=== PATIENT | male | born 1980 | race Caucasian/White ===

== ENCOUNTER 2024-10-04 06:04 | Emergency (ER) | payer BC, SELFPAY ==
--- NOTE | ~2024-10-04 | CT_ITS ---
EXAMINATION: CT abdomen pelvis w con DATE: 10/04/2024 07:37 INDICATION: Upper abdominal pain, nausea and fever TECHNIQUE: Computed tomography (CT) of the abdomen and pelvis was performed with 100 mL Omnipaque-350 intravenous contrast. Automated exposure control and iterative reconstruction technique were employe d. The dose-length product was 1310.32 mGy-cm. COMPARISON: None FINDINGS: Lung bases are clear. Heart size is normal. No pericardial or pleural effusion. Indeterminate approxi mately 2 cm poorly defined hypodense lesion in segment 6 of the liver. Gallbladder, spleen, pancreas, bilateral adrenal glands and left kidney are normal. 3 mm nonobstructing stone at the mid right kidn ey. There is mild colonic diverticulosis with a sigmoid predominance. There is no adjacent inflammat ory change to suggest diverticulitis. Small bowel and appendix are normal. Partially decompressed bl adder is unremarkable. No free intraperitoneal gas or fluid. No pathologically enlarged abdominal or pelvic lymphadenopathy. Chronic L1 superior endplate compression fracture with Schmorl's nodes superi mposed on the centrally depressed endplate. IMPRESSION: 1. 3 mm nonobstructing right renal stone. 2. Indeterminate 2 cm ill-defined hypodense lesion in the right hepatic lobe which could be either be nign or malignant. Recommend further evaluation with multiphase pre and postcontrast MRI. Reviewed, dictated and finalized at location A. [employer] IMPRESSION: 1. 3 mm nonobstructing right renal stone. 2. Indeterminate 2 cm ill-defined hypodense lesion in the right hepatic lobe wh ich could be either benign or malignant. Recommend further evaluation with mult iphase pre and postcontrast MRI.
[2024-10-04 06:06] VITALS: BP 167/98; PULSE 64; RESP 16; TEMP 36.5; O2SAT 100
--- NOTE | 2024-10-04 06:25 | PC.NURSE ---
COVID PCR obtained and sent to lab
--- NOTE | 2024-10-04 06:29 | ED_ITS ---
HPI - General Adult General Chief complaint: Abdominal Pain <Conner Millard MD - Last Filed: 10/04/24 07:07> Stated complaint: abdominal pain <Conner Millard MD - Last Filed: 10/04/24 07:07> Time Seen by Provider: 10/04/24 06:29 <Conner Millard MD - Last Filed: 10/04/24 07:07> Source: patient <Conner Millard MD - Last Filed: 10/04/24 07:07> Mode of arrival: ambulatory <Conner Millard MD - Last Filed: 10/04/24 07:07> Limitations: no limitations <Conner Millard MD - Last Filed: 10/04/24 07:07> History of Present Illness HPI narrative: patient is a 43-year-old white male complains of right upper quadrant pain radiating to his back on the round the right side and to the front of his left abdomen upper pain started 4 days ago around noon time he said he took some Pepto-Bismol and that helped. He was nauseated he vomited up some food. Said he had a fever of 101?. He took some Aleve. His pain went way for 2 days. Then came back 2 days ago in the morning he took some Pepto-Bismol that helped then this morning at 2:00 a.m. he started to have the pain again 7- 8 over 10 described the pain as sharp stabbing constant. Nothing seemed to make it worse he tried the Pepto-Bismol but it did not help he took 2 doses. He vomited up some foods he says he feels little bloated in his upper abdomen he has had this pain before off and on for the past 2 or 3 years maybe about 6 times a year but usually last a half an hour to 1 hour and then goes away. past medical history is significant for hyperlipidemia he has no heart lung kidney disease liver disease anemia diabetes strokes thyroid disease. He has little arthritis. Denies any problems eating or drinking voiding or stooling cough sore throat runny nose swelling lumps or bumps rash or itching bleeding or bruising problems walking talking seeing or hearing numbness dizziness just feels little tired and is hurting this morning. Denies any focal weakness or any other pain Allergies no known drug allergies past surgeries: None primary care provider Dr. Gray last seen a month ago did some routine blood work. <Conner Millard MD - Last Filed: 10/04/24 07:07> Onset (ago): day(s) (Four days) <Gordy Palm MD - Last Filed: 10/04/24 08:25> Location: abdomen <Gordy Palm MD - Last Filed: 10/04/24 08:25> Radiation: abdomen <Gordy Palm MD - Last Filed: 10/04/24 08:25> Severity: moderate <Gordy Palm MD - Last Filed: 10/04/24 08:25> Quality: aching <Gordy Palm MD - Last Filed: 10/04/24 08:25> Pain Consistency: constant <Gordy Palm MD - Last Filed: 10/04/24 08:25> Relieving factors: none <Gordy Palm MD - Last Filed: 10/04/24 08:25> Exacerbating factors: none <Gordy Palm MD - Last Filed: 10/04/24 08:25> Related Data Home medications: Home Medications Medication Instructions Recorded Confirmed atorvastatin 80 mg tablet 80 mg PO DAILY 10/04/24 10/04/24 fenofibrate nanocrystallized 145 145 mg PO DAILY 10/04/24 10/04/24 mg tablet omeprazole 40 mg capsule,delayed 40 mg PO DAILY 10/04/24 10/04/24 release <Conner Millard MD - Last Filed: 10/04/24 07:07> Allergies/adverse reactions: Allergies Allergy/AdvReac Type Severity Reaction Status Date / Time No Known Allergies Allergy Verified 10/04/24 06:11 <Conner Millard MD - Last Filed: 10/04/24 07:07> Review of Systems Review of Systems: All systems reviewed & are unremarkable except as noted in HPI and below <Conner Millard MD - Last Filed: 10/04/24 07:07> Constitutional: Constitutional: Reports as per HPI and Reports no additional constitutional complaints <Gordy Palm MD - Last Filed: 10/04/24 08:25> Eyes: Eyes: Reports as per HPI and Reports no additional eye complaints <Gordy Palm MD - Last Filed: 10/04/24 08:25> ENT: Reports system reviewed and no additional complaints, except as documented and Reports as per HPI <Gordy Palm MD - Last Filed: 10/04/24 08:25> Cardiovascular: Cardiovascular: Reports as per HPI and Reports no additional cardiovascular complaints <Gordy Palm MD - Last Filed: 10/04/24 08:25> Respiratory: Respiratory: Reports as per HPI and Reports no additional respiratory complaints <Gordy Palm MD - Last Filed: 10/04/24 08:25> Gastrointestinal: Gastrointestinal: Reports as per HPI, Reports no additional gastrointestinal complaints and Reports abdominal pain <Gordy Palm MD - Last Filed: 10/04/24 08:25> Genitourinary: Genitourinary: Reports no additional male genitourinary complaints and Reports as per HPI <Gordy Palm MD - Last Filed: 10/04/24 08:25> Musculoskeletal: Musculoskeletal: Reports no additional musculoskeletal complaints and Reports as per HPI <Gordy Palm MD - Last Filed: 1 12/04/23 08:25> Integumentary/Breasts: Skin/Breast: Reports system reviewed and no additional complaints, except as docu and Reports as per HPI <Gordy Palm MD - Last Filed: 10/04/24 08:25> Neurologic: Reports system reviewed and no additional complaints, except as documented and Reports as per HPI <Gordy Palm MD - Last Filed: 10/04/24 08:25> Psychiatric: Psychiatric: Reports no additional psychiatric complaints and Reports as per HPI <Gordy Palm MD - Last Filed: 10/04/24 08:25> Endocrine: Endocrine: Reports no additional endocrine complaints and Reports as per HPI <Gordy Palm MD - Last Filed: 10/04/24 08:25> Hematologic/Lymphatic: Hematologic/Lymphatic: Reports no additional hematologic/lymphatic complaints and Reports as per HPI <Gordy Palm MD - Last Filed: 10/04/24 08:25> Allergic/Immunologic: Allergic/Immunologic: Reports no additional allergic/immunologic complaints and Reports as per HPI <Gordy Palm MD - Last Filed: 10/04/24 08:25> [facility] Social History Social History: Social History (Updated 10/04/24 @ 08:17 by Gordy Palm MD) Social History: alcohol use <Conner Millard MD - Last Filed: 10/04/24 07:07> Comments past medical history: hyperlipidemia arthritis <Conner Millard MD - Last Filed: 10/04/24 07:07> Exam 2 Narrative: White male patient with no apparent distress.? Head normocephalic, atraumatic.? Eyes conjunctiva pink sclera nonicteric.? Extraocular movements are intact.? Ears externally normal.? Oropharynx is clear with moist mucous membranes without exudates.? Neck is supple nontender no lymphadenopathy.? Back is nontender.? No CVA tenderness. Lungs are clear.? Heart is regular rate and rhythm without murmurs gallops or rubs.? Chest wall nontender. Abdomen is soft With positive bowel sounds and right upper quadrant tenderness with a positive Stuart sign. He had no guarding or rebound tenderness. He had no hepatosplenomegaly or masses no CVA tenderness no abdominal bruits.? Extremities no cyanosis clubbing or edema.? Skin is warm and dry without rashes or lesions.? Neurological patient is alert and oriented x4.? Motor and sensory grossly intact.? Gait is normal. <Conner Millard MD - Last Filed: 10/04/24 07:07> Const: General: no acute distress <Gordy Palm MD - Last Filed: 10/04/24 08:25> Nutritional Appearance: well nourished <Gordy Palm MD - Last Filed: 10/04/24 08:25> Orientation/consciousness: patient oriented x3 <Gordy Palm MD - Last Filed: 10/04/24 08:25> Limitations: no limitations <Gordy Palm MD - Last Filed: 10/04/24 08:25> HENMT: Head: normal to inspection <Gordy Palm MD - Last Filed: 10/04/24 08:25> Ears: external ears normal <Gordy Palm MD - Last Filed: 10/04/24 08:25> Face/Nose/Sinus: Normal external nose present <Gordy Palm MD - Last Filed: 10/04/24 08:25> Face and sinus: normal facial exam <Gordy Palm MD - Last Filed: 10/04/24 08:25> Mouth: Yes Normal oral and palatal mucosa present <Gordy Palm MD - Last Filed: 10/04/24 08:25> Throat: posterior oropharynx normal <Gordy Palm MD - Last Filed: 10/04/24 08:25> Eyes: Conjunctivae: conjunctivae normal <Gordy Palm MD - Last Filed: 10/04/24 08:25> Pupils: Equal, round and reactive pupils present <Gordy Palm MD - Last Filed: 10/04/24 08:25> EOM: EOMs intact bilaterally <Gordy Palm MD - Last Filed: 10/04/24 08:25> Direct Ophthalmoscopy: no photophobia <Gordy Palm MD - Last Filed: 10/04/24 08:25> Neck: Neck: normal visual inspection, no lymphadenopathy and no meningeal signs <Gordy Palm MD - Last Filed: 10/04/24 08:25> Chest: Chest palpation & inspection: normal inspection of the chest <Gordy Palm MD - Last Filed: 10/04/24 08:25> Resp: Effort & Inspection: normal respiratory effort <Gordy Palm MD - Last Filed: 10/04/24 08:25> Auscultation: clear to auscultation bilaterally <Gordy Palm MD - Last Filed: 10/04/24 08:25> Cardio: Rate: regular rate <Gordy Palm MD - Last Filed: 10/04/24 08:25> Rhythm: regular rhythm <Gordy Palm MD - Last Filed: 10/04/24 08:25> GI: Other: right upper quadrant tenderness. Positive Stuart sign. No rigidity/rebound. <Gordy Palm MD - Last Filed: 10/04/24 08:25> : General: Yes no CVA tenderness <oGrdy Palm MD - Last Filed: 10/04/24 08:25> Back/Spine/Pelvis: Back: no CVA tenderness <Gordy Palm MD - Last Filed: 10/04/24 08:25> Skin: General skin exam: normal color <Gordy Palm MD - Last Filed: 10/04/24 08:25> Rashes: no rashes <Gordy Palm MD - Last Filed: 10/04/24 08:25> Neuro: General: patient oriented x3, moves all extremities, no meningeal signs , no focal motor deficits and CN's II-XI intact bilaterally <Gordy Palm MD - Last Filed: 10/04/24 08:25> Cranial nerves: Yes Nystagmus not present <Gordy Palm MD - Last Filed: 10/04/24 08:25> Speech: normal speech <Gordy Palm MD - Last Filed: 10/04/24 08:25> Extrem: General: normal to inspection and no clubbing, cyanosis or edema <Gordy Palm MD - Last Filed: 10/04/24 08:25> Psych: Mental Status: mental status grossly normal <Gordy Palm MD - Last Filed: 10/04/24 08:25> Affect: normal affect <Gordy Palm MD - Last Filed: 10/04/24 08:25> Course Course Emergency Course: Right upper quadrant tenderness-- blood work revealed an elevated white cell count of 11.9. Chemistries revealed elevated LFTs with AST of 153 and ALT of 109 suggestive of alcoholic hepatitis. Urine was negative for blood. CT of the abdomen revealed 2 cm hypodensity in the liver along with diverticulosis and superior endplate compression fracture of L1 with schmorl's node. no clear reason for the right upper quadrant pain / tenderness. The CT did not show any abnormality of the liver the gallbladder the spleen. Will have the patient continue omeprazole. Will give him some pain medication. Advised to follow up with primary care physician. <Gordy Palm MD - Last Filed: 10/04/24 08:25> Vital Signs Vital signs: Vital Signs Temperature 36.5 C 10/04/24 06:06 Pulse Rate 64 10/04/24 06:06 Respiratory Rate 16 10/04/24 06:06 Blood Pressure 167/98 H 10/04/24 06:06 Pulse Oximetry 100 10/04/24 06:06 Oxygen Delivery Room Air 10/04/24 06:06 Temperature 36.5 C 10/04/24 06:06 Pulse Rate 64 10/04/24 06:06 Respiratory Rate 16 10/04/24 06:06 Blood Pressure 167/98 H 10/04/24 06:06 Pulse Oximetry 100 10/04/24 06:06 Oxygen Delivery Room Air 10/04/24 06:06 <Conner Millard MD - Last Filed: 10/04/24 07:07> Vital Signs Temperature 36.5 C 10/04/24 06:06 Pulse Rate 64 10/04/24 06:06 Respiratory Rate 16 10/04/24 06:06 Blood Pressure 167/98 H 10/04/24 06:06 Pulse Oximetry 100 10/04/24 06:06 Oxygen Delivery Room Air 10/04/24 06:06 Temperature 36.5 C 10/04/24 06:06 Pulse Rate 64 10/04/24 06:06 Respiratory Rate 16 10/04/24 06:06 Blood Pressure 167/98 H 10/04/24 06:06 Pulse Oximetry 100 10/04/24 06:06 Oxygen Delivery Room Air 10/04/24 06:06 <Gordy Palm MD - Last Filed: 10/04/24 08:25> Medical Decision Making MDM Narrative Medical decision making narrative: ?Patient placed in room: 3 ? History and physical was performed. Independent Historian: patient External Source Review: Differential Dx includes but not limited to: cholecystitis gastritis peptic ulcer disease bowel obstruction Medications were Reviewed: home meds reviewed Medications given: Toradol 30 mg IV, Zofran 4 mg IV, Protonix 40 mg IV Independently Interpreted by me: Shared decision Making: Social Situation Impacting Patients Care: Discussed with Dr. Gordy Palm at change of shift who accepted care of patient. DISCHARGE DIAGNOSIS: Abdominal pain DISPOSITION : CONDITION AT DISCHARGE: <Conner Millard MD - Last Filed: 10/04/24 07:07> Differential Diagnosis Differential Diagnosis: Cholecystitis, peptic ulcer disease, kidney stones <Gordy Palm MD - Last Filed: 10/04/24 08:25> Medical Records Medical records reviewed: Yes I reviewed the external patient's medical records. <Gordy Palm MD - Last Filed: 10/04/24 08:25> Vital Signs Vital Signs: Vital Signs Temperature 36.5 C 10/04/24 06:06 Pulse Rate 64 10/04/24 06:06 Respiratory Rate 16 10/04/24 06:06 Blood Pressure 167/98 H 10/04/24 06:06 Pulse Oximetry 100 10/04/24 06:06 Oxygen Delivery Room Air 10/04/24 06:06 Temperature 36.5 C 10/04/24 06:06 Pulse Rate 64 10/04/24 06:06 Respiratory Rate 16 10/04/24 06:06 Blood Pressure 167/98 H 10/04/24 06:06 Pulse Oximetry 100 10/04/24 06:06 Oxygen Delivery Room Air 10/04/24 06:06 <Conner Millard MD - Last Filed: 10/04/24 07:07> Vital Signs Temperature 36.5 C 10/04/24 06:06 Pulse Rate 64 10/04/24 06:06 Respiratory Rate 16 10/04/24 06:06 Blood Pressure 167/98 H 10/04/24 06:06 Pulse Oximetry 100 10/04/24 06:06 Oxygen Delivery Room Air 10/04/24 06:06 Temperature 36.5 C 10/04/24 06:06 Pulse Rate 64 10/04/24 06:06 Respiratory Rate 16 10/04/24 06:06 Blood Pressure 167/98 H 10/04/24 06:06 Pulse Oximetry 100 10/04/24 06:06 Oxygen Delivery Room Air 10/04/24 06:06 <Gordy Palm MD - Last Filed: 10/04/24 08:25> Lab Data Result diagrams: 10/04/24 06:30 10/04/24 06:30 <Conner Millard MD - Last Filed: 10/04/24 07:07> Labs: Lab Results 11/23/24 11/23/24 Range/Units 06:30 07:17 WBC 11.9 H (4.8-10.8) K/mm3 RBC 4.64 L (4.70-6.10) M/mm3 Hgb 14.2 (14.0-18.0) g/dL Hct 41.5 (40.0-54.0) % MCV 89.4 (78.0-102.0) fL MCH 30.6 (27.0-31.0) pg MCHC 34.2 (32-36) g/dL RDW 12.9 (11.6-14.4) % Plt Count 235 (150-420) K/mm3 MPV 11.8 H (8.7-11.0) fl Sodium 140 (136-145) mmol/L Potassium 3.8 (3.5-5.1) mmol/L Chloride 101 (98-108) mmol/L Carbon Dioxide 27 (21-32) mmol/L Anion Gap 12 (4-12) mmol/L BUN 12 (7-18) mg/dL Creatinine 1.08 (0.70-1.30) mg/dL Estim Creat Clear Calc 101 ml/min Estimated GFR > 60 (59 - ) Glucose 172 H (70-99) mg/dL Calculated Osmolality 293 (285-295) mOsm/kg Calcium 9.6 (8.5-10.1) mg/dL Total Bilirubin 0.9 (0.00-1.00) mg/dL AST 153 H (15-37) U/L ALT 109 H (16-63) U/L Alkaline Phosphatase 107 (46-116) U/L Total Protein 7.4 (6.4-8.2) g/dL Albumin 3.9 (3.4-5.0) g/dL Lipase 44 (16-77) U/L Urine Color Christiane A (Yellow) Urine Appearance Clear (Clear) Urine pH 5.0 (5.0-8.0) Ur Specific [place] >= 1.030 H (1.010-1.020) Urine Protein Trace H (Negative) Urine Glucose (UA) Negative (Negative) Urine Ketones Trace H (Negative) Ur Blood (Man) Negative (Negative) Urine Nitrate Negative (Negative) Urine Bilirubin 1+ H (Negative) Urine Urobilinogen 1.0 (0.2-1.0) mg/dL Leukocyte Esterase Rfl Negative (Negative) PEDRO/UL Urine RBC None seen (0-2) /hpf Urine WBC None seen (0-3) /hpf Calcium Oxalate Crystal Present H (None) /hpf Urine Bacteria Trace (None) /hpf Urine Mucus Heavy H /lpf <Conner Millard MD - Last Filed: 10/04/24 07:07> Lab Results 10/04/24 10/04/24 Range/Units 06:30 07:17 WBC 11.9 H (4.8-10.8) K/mm3 RBC 4.64 L (4.70-6.10) M/mm3 Hgb 14.2 (14.0-18.0) g/dL Hct 41.5 (40.0-54.0) % MCV 89.4 (78.0-102.0) fL MCH 30.6 (27.0-31.0) pg MCHC 34.2 (32-36) g/dL RDW 12.9 (11.6-14.4) % Plt Count 235 (150-420) K/mm3 MPV 11.8 H (8.7-11.0) fl Sodium 140 (136-145) mmol/L Potassium 3.8 (3.5-5.1) mmol/L Chloride 101 (98-108) mmol/L Carbon Dioxide 27 (21-32) mmol/L Anion Gap 12 (4-12) mmol/L BUN 12 (7-18) mg/dL Creatinine 1.08 (0.70-1.30) mg/dL Estim Creat Clear Calc 101 ml/min Estimated GFR > 60 (59 - ) Glucose 172 H (70-99) mg/dL Calculated Osmolality 293 (285-295) mOsm/kg Calcium 9.6 (8.5-10.1) mg/dL Total Bilirubin 0.9 (0.00-1.00) mg/dL AST 153 H (15-37) U/L ALT 109 H (16-63) U/L Alkaline Phosphatase 107 (46-116) U/L Total Protein 7.4 (6.4-8.2) g/dL Albumin 3.9 (3.4-5.0) g/dL Lipase 44 (16-77) U/L Urine Color Christiane A (Yellow) Urine Appearance Clear (Clear) Urine pH 5.0 (5.0-8.0) Ur Specific [place] >= 1.030 H (1.010-1.020) Urine Protein Trace H (Negative) Urine Glucose (UA) Negative (Negative) Urine Ketones Trace H (Negative) Ur Blood (Man) Negative (Negative) Urine Nitrate Negative (Negative) Urine Bilirubin 1+ H (Negative) Urine Urobilinogen 1.0 (0.2-1.0) mg/dL Leukocyte Esterase Rfl Negative (Negative) PEDRO/UL Urine RBC None seen (0-2) /hpf Urine WBC None seen (0-3) /hpf Calcium Oxalate Crystal Present H (None) /hpf Urine Bacteria Trace (None) /hpf Urine Mucus Heavy H /lpf <Gordy Palm MD - Last Filed: 10/04/24 08:25> Discharge Plan Discharge Clinical Impression: Lesion of liver Abdominal pain Qualifiers: Abdominal location: right upper quadrant Qualified Code(s): R10.11 - Right upper quadrant pain Alcoholic hepatitis Qualifiers: Ascites presence: without ascites Qualified Code(s): K70.10 - Alcoholic hepatitis without ascites <Conner Millard MD - Last Filed: 10/04/24 07:07> Patient Disposition: Home, Self-Care <Conner Millard MD - Last Filed: 10/04/24 07:07> Condition: Stable <Conner Millard MD - Last Filed: 10/04/24 07:07> Instructions: Antibiotic Form, Acute Abdominal Pain (ED), Alcoholic Hepatitis (ED) <Conner Millard MD - Last Filed: 10/04/24 07:07> Additional Instructions: follow-up with primar <Conner Millard MD - Last Filed: 10/04/24 07:07> Patient Language: Korean <Conner Millard MD - Last Filed: 10/04/24 07:07> Prescriptions: New hydrocodone-acetaminophen 5-325 mg tablet 1 tablet PO Q8H PRN (Reason: pain) Qty: 10 0RF No Action atorvastatin 80 mg tablet 80 mg PO DAILY omeprazole 40 mg capsule,delayed release(DR/EC) 40 mg PO DAILY fenofibrate nanocrystallized 145 mg tablet 145 mg PO DAILY <Conner Millard MD - Last Filed: 10/04/24 07:07> Follow-up/Referrals: UNKNOWN,DOCTOR [Primary Care Provider] - <Conner Millard MD - Last Filed: 10/04/24 07:07> Time of Disposition: 08:25 <Conner Millard MD - Last Filed: 10/04/24 07:07> 08:25 <Gordy Palm MD - Last Filed: 10/04/24 08:25>
[2024-10-04 06:58] LABS: Hematocrit 41.5 % (40.0-54.0); Hemoglobin 14.2 g/dL (14.0-18.0); Mean Corpuscular HGB Conc 34.2 g/dL (32-36); Mean Corpuscular Hemoglobin 30.6 pg (27.0-31.0); Mean Corpuscular Volume 89.4 fL (78.0-102.0); Mean Platelet Volume 11.8 fl (8.7-11.0); Platelet Count Result 235 K/mm3 (150-420); Red Blood Count 4.64 M/mm3 (4.70-6.10); Red Cell Distribution Width 12.9 % (11.6-14.4); White Blood Count 11.9 K/mm3 (4.8-10.8)
[2024-10-04] MEDS: ONDANSETRON INJ 4 MG/2 ML VIAL IV PUSH ×2 (06:59→08:31)
[2024-10-04] MEDS: KETOROLAC 30 MG/ML VIAL (*BKC) IM (06:59)
[2024-10-04] MEDS: PANTOPRAZOLE SODIUM IV 40 MG VIAL IV PUSH (06:59)
[2024-10-04 07:08] LABS: Alanine Aminotransferase 109 U/L (16-63); Albumin Level 3.9 g/dL (3.4-5.0); Alkaline Phosphatase 107 U/L (46-116); Anion Gap 12 mmol/L (4-12); Aspartate Amino Transferase 153 U/L (15-37); Bilirubin,Total 0.9 mg/dL (0.00-1.00); Blood Urea Nitrogen 12 mg/dL (7-18); Calcium 9.6 mg/dL (8.5-10.1); Carbon Dioxide 27 mmol/L (21-32); Chloride 101 mmol/L (98-108); Estimated CRCL calculation 101 ml/min; Estimated Glomerular Filt Rate > 60; Glucose 172 mg/dL (70-99); Lipase 44 U/L (16-77); Osmolality Calculated 293 mOsm/kg (285-295); Potassium 3.8 mmol/L (3.5-5.1); Sodium 140 mmol/L (136-145); Total Protein 7.4 g/dL (6.4-8.2)
[2024-10-04 07:24] LABS: Appearance Urine Clear (Clear); Bilirubin Urine 1+ (Negative); Blood Urine Negative (Negative); Glucose Urine UA Negative (Negative); Ketones Urine Trace (Negative); Leukocyte Esterase Ur Negative LEU/UL (Negative); Nitrate Urine Negative (Negative); Protein Urine Trace (Negative); Specific Grav Ur >= 1.030 (1.010-1.020)
[2024-10-04 07:30] LABS: Add Urine Microscopic? YES; Bacteria Urine Trace /hpf; Calcium Oxalate Crystals Urine Present /hpf; Color Urine Amber (Yellow); Mucus Urine Heavy /lpf; RBC Urine None seen /hpf (0-2); WBC Urine None seen /hpf (0-3)
[2024-10-04] MEDS: LACTATED RINGERS 500 ML 999 ML IV CONT (08:31)
[2024-10-04] MEDS: HYDROmorphone HCL INJ (*CRX) 2 MG/ML VIAL 0.5 MG IV PUSH (08:32)
[2024-10-04 08:56] VITALS: BP 160/94; PULSE 59; RESP 18; TEMP 36.6; O2SAT 98
== END 2024-10-04 09:04 | disposition home or self-care (01) ==
PROVIDERS: Emergency Medicine; Emergency Provider Internal Medicine Critical Care Medicine
DX: K76.9 Liver disease, unspecified (principal); K70.10 Alcoholic hepatitis without ascites; R10.11 Right upper quadrant pain; Z79.899 Other long term (current) drug therapy
CPT/HCPCS: 36415; 74177; 80053; 81001; 83690; 85027; 96372; 96374; 96375; 99284; J1171; J1885; J2405; J2470; J7120; Q9967

== ENCOUNTER 2024-10-05 12:37 | Inpatient (IN) | payer BC, SELFPAY ==
--- NOTE | ~2024-10-05 | US_ITS ---
US abdomen limited DATE: 10/05/2024 16:37 INDICATION: Right upper quadrant abdominal pain. Acute cholecystitis. TECHNIQUE: Real-time and color flow imaging of the right upper quadrant COMPARISON: 10/05/2024 CT abdomen pelvis 10/04/2024 CT abdomen pelvis FINDINGS: There is a focal approximately 2.4 x 1.9 x 1.7 cm area of hyper echogenicity of the right h epatic lobe, which may be due to focal fatty infiltration or hemangioma. No other hepatic space-occup nikkie mass lesion is evident. Normal hepatopedal portal venous flow direction. No pancreatic mass lesion is noted. The gallbladder is distended. There is gallbladder wall thickening, measuring up to 4 mm. No apparent gallstones is noted. IMPRESSION: Gallbladder distention and wall thickening; acute cholecystitis is suspected. No definite gallstones are noted. Consider occult gallstone or acalculous cholecystitis. Focal hyperechoic area right hepatic lobe corresponding to CT finding, possibly focal fatty infiltrat ion or hemangioma Reviewed, dictated and finalized at [facility]. Reviewed, dictated and finalized at location A. LIANCE TECHNICIAN IMPRESSION: Gallbladder distention and wall thickening; acute cholecystitis is suspected. No definite gallstones are noted. Consider occult gallstone or acalc ulous cholecystitis. Focal hyperechoic area right hepatic lobe corresponding to CT finding, possibly focal fatty infiltration or hemangioma
--- NOTE | ~2024-10-05 | MR_ITS ---
EXAMINATION: MR MRCP wo/w con/w 3D wo ind DATE: 10/06/2024 11:41 INDICATION: Acute cholecystitis with significant transaminitis TECHNIQUE: Magnetic resonance imaging (MRI) of the abdomen was performed without and with 20 mL Multi kallie intravenous contrast. Sequences included coronal T2-weighted SS-FSE, coronal T2-weighted FS SS- FSE, coronal T2-weighted FS FIESTA, axial T2-weighted FS FIESTA, axial T2-weighted FIESTA, sagittal T 2-weighted SS-FSE, axial T1-weighted dual-echo FSPGR, axial T2-weighted SS-FSE, axial T1-weighted LAV A, axial T2-weighted STIR FSE. Thick-slab T2-weighted FRFSE-XL images were obtained for magnetic reso nance cholangiopancreatography (MRCP). Rotating maximum intensity projection 3-D reconstructions of t he volumetric data were created by the technologist. Postcontrast sequences included a time course of axial T1-weighted LAVA. COMPARISON: CT dated 10/05/2024 FINDINGS: ABDOMEN MRI: Heart size is normal. No pericardial or pleural effusion. There is mild intrahepatic biliary ductal d ilation. 2.1 x 1.6 cm T2 hyperintense lesion in the right hepatic lobe with lobular margins and with peripheral discontiguous puddling of contrast which progressively fills in on delayed imaging consist ent with a hemangioma. There is an adjacent 7 x 3 mm T2 hyperintense lesion which enhances only on th e most delayed image also most consistent with a hemangioma. There is pericholecystic inflammatory st randing consistent with acute cholecystitis spleen, pancreas, bilateral adrenal glands and kidneys ar e normal. Visualized portion of the bowels including the appendix are normal. No pathologically enlar ged abdominal lymphadenopathy. Mild thoracolumbar spondylosis. Large Schmorl's node along the superio r endplate of L1. Fat saturating hemangioma at T8. ABDOMEN MRCP: The MRCP images are essentially nondiagnostic due to motion. Evaluation on the T2-weighted coronal im ages demonstrates borderline dilation of the common bile duct which measures up to 6 mm. There is a 1 0 x 6 mm stone in the distal common bile duct. There are few additional small filling defects along t he cystic duct suggesting additional choledocholithiasis. No evident cholelithiasis within the gallbl adder. IMPRESSION: 1. Choledocholithiasis including a 10 x 6 mm stone in the distal aspect of the borderline dilated com mon bile duct and with mild intrahepatic biliary ductal dilation. 2. There are additional low signal intensity gallstones in the cystic duct and inflammatory stranding surrounding the gallbladder consistent with acute cholecystitis. 3. 2.1 cm hemangioma in the right hepatic lobe which corresponds to the region of concern on prior CT . Reviewed, dictated and finalized at location A. FELLER IMPRESSION: 1. Choledocholithiasis including a 10 x 6 mm stone in the distal aspect of the borderline dilated common bile duct and with mild intrahepatic biliary ductal d ilation. 2. There are additional low signal intensity gallstones in the cystic duct and inflammatory stranding surrounding the gallbladder consistent with acute cholec ystitis. 3. 2.1 cm hemangioma in the right hepatic lobe which corresponds to the region of concern on prior CT.
--- NOTE | ~2024-10-05 | XR_ITS ---
EXAMINATION: XR ERCP DATE: 10/07/2024 12:00 LENS GENERATOR INDICATION: GALL STONES . TECHNIQUE: 1 fluoroscopic image of the right upper quadrant were obtained during ERCP. I was not pres ent during the procedure. Fluoroscopy exposure time was 120.3 seconds. Air Kerma 63.4 mGy. DAP 1.96 m Gym2. COMPARISON: None FINDINGS/IMPRESSION: Fluoroscopic documentation of ERCP. Please refer to the operative note for complete procedural detail s . Reviewed, dictated and finalized at location K. GENERATOR
--- NOTE | ~2024-10-05 | CT_ITS ---
EXAMINATION: CT abdomen pelvis w con DATE: 10/05/2024 14:53 INDICATION: Right upper quadrant abdominal pain, vomiting. Abnormal liver function tests. TECHNIQUE: Computed tomography (CT) of the abdomen and pelvis was performed with 100 CC Omnipaque 350 intravenous contrast. Automated exposure control and iterative reconstruction technique were employe d. Exam dose: 1225.36 mGy-cm total exam DLP. COMPARISON: 10/04/2024 CT abdomen pelvis FINDINGS: Minimal bilateral lower lobe dependent atelectasis. Normal heart size. There is interval prominent pericholecystic fat stranding since yesterday. The gallbladder is distend ed. Acute cholecystitis is suspected. No bile duct or pancreatic duct dilatation. Subtle area of diminished attenuation in the posterior inferior right hepatic lobe, of uncertain if a ny clinical significance, most likely benign, possibly some focal fatty infiltration. On 10/04/2024 C T abdomen pelvis examination report Dr. Galloway recommended MRI evaluation to differentiate benign f rom malignant process. The liver, spleen, pancreas, and adrenal glands and kidneys are otherwise unremarkable with the excep tion of a nonobstructing approximately 3 mm right renal calculus. Normal caliber of the abdominal aorta. No intraperitoneal or retroperitoneal or pelvic mass lesion or adenopathy or ascites is noted. Normal appendix. There are multiple diverticula of the sigmoid and to lesser extent descending colon; no CT evidence o f diverticulitis. No bowel obstruction, bowel wall thickening, pneumatosis or intraperitoneal free ai r. Chronic mild anterior wedge compression fracture deformity of L1. Severe degenerative disc disease with prominent anterior posterior spurring at L5-S1. No suspicious osteolytic or osteoblastic lesions are noted. IMPRESSION: Acute cholecystitis, with prominent pericholecystic fat stranding/inflammation since yes terday Diverticulosis of the left colon; no evidence of diverticulitis Normal appendix Subtle focal diminished attenuation in the lower right hepatic lobe, possibly focal fatty infiltratio n. MRI has been recommended differentiate benign from malignant process. Reviewed, dictated and finalized at [facility]. Reviewed, dictated and finalized at location A. RITY SALES CONSULTANT IMPRESSION: Acute cholecystitis, with prominent pericholecystic fat stranding/ inflammation since yesterday Diverticulosis of the left colon; no evidence of diverticulitis Normal appendix Subtle focal diminished attenuation in the lower right hepatic lobe, possibly f ocal fatty infiltration. MRI has been recommended differentiate benign from mal ignant process.
[2024-10-05 12:59] VITALS: BP 168/98; PULSE 73; RESP 17; O2SAT 100
[2024-10-05 13:34] LABS: Basophils Absolute Auto 0.1 K/mm3 (0.0-0.1); Basophils Percent Auto 0.4 % (0.2-1.2); Eosinophils Percent Auto 0.1 % (0-4.4); Hematocrit 41.2 % (42.0-52.0); Hemoglobin 13.9 g/dL (14.0-18.0); Immature Granulocyte Absolute 0.16 K/mm3 (0.00-0.031); Immature Granulocyte Percent A 1.1 % (0-0.5); Lymphocytes Absolute Auto 0.47 K/mm3 (0.9-3.2); Lymphocytes Percent Auto 3.2 % (18.3-44.2); Mean Corpuscular HGB Conc 33.7 g/dl (32-36); Mean Corpuscular Hemoglobin 30.4 pg (26-34); Mean Corpuscular Volume 90.2 fl (80-100); Mean Platelet Volume 11.7 fl (7.4-10.4); Monocytes Absolute Auto 0.7 K/mm3 (0.1-0.6); Neutrophils Absolute Auto 13.1 K/mm3 (1.3-6.7); Neutrophils Percent Auto 90.2 % (45.5-73.1); Platelet Count Result 186 k/mm3 (150-375); Red Blood Count 4.57 M/mm3 (4.6-6.20); Red Cell Distribution Width 12.9 % (11.5-14.5); White Blood Count 14.5 K/mm3 (4.5-10.0)
[2024-10-05 13:46] LABS: Lactic Acid Reflex 1.9 mmol/L (0.7-2.0)
[2024-10-05 13:48] LABS: Alanine Aminotransferase 502 U/L (6-50); Albumin Level 4.5 g/dL (3.5-5.1); Alkaline Phosphatase 154 U/L (38-126); Anion Gap 13 mmol/L (4-12); Aspartate Amino Transferase 453 U/L (17-59); Bilirubin,Total 8.4 mg/dL (0.2-1.3); Blood Urea Nitrogen 10 mg/dL (9-20); Calcium 9.3 mg/dL (8.4-10.2); Carbon Dioxide 22 mmol/L (22-30); Chloride 99 mmol/L (98-107); Estimated CRCL calculation 134 ml/min; Estimated Glomerular Filt Rate > 60; Glucose 152 mg/dL (65-110); Lipase 44 U/L (23-300); Potassium 3.6 mmol/L (3.4-5.0); Sodium 134 mmol/L (137-145)
[2024-10-05 13:49] LABS: Add Urine Microscopic? YES; Appearance Urine Clear (Clear); Bacteria Urine None Seen /hpf; Bilirubin Urine 3+ (Negative); Blood Urine Negative (Negative); Color Urine Dark Yellow (Yellow); Glucose Urine UA Negative (Negative); Ketones Urine Trace mg/dL (Negative); Leukocyte Esterase Ur 1+ LEU/UL (Negative); Need Manual Microscopic Reviewed; Nitrate Urine Positive (Negative); Non Pathogenic Casts 0-2; Protein Urine 2+ mg/dL (Negative); RBC Urine 0-2 /hpf (0-2); Specific Grav Ur 1.032 (1.001-1.035); Squamous Epithelial Cell Urine None Seen /hpf (Few); WBC Urine 0-5 /hpf (0-3); pH Urine 7.5 (5.0-9.0)
--- NOTE | 2024-10-05 14:04 | ED_ITS ---
HPI - Abdominal Pain General Chief Complaint: Abdominal Pain Stated Complaint: abd pain Time Seen by Provider: 10/05/24 12:46 History of Present Illness HPI narrative: 43-year-old male with a history of hyperlipidemia presenting with abdominal pain. States that he has had upper right quadrant pain off and on for the last week associated with decreased appetite and vomiting. He was seen at another hospital yesterday and was able to go home. States that he does drink daily but he has not had a drink for the last 2 days. Denies prior episodes of withdrawal or current withdrawal symptoms. States that the right upper quadrant pain again became bad today despite taking Vicodin. Related Data Home Medications Medication Instructions Recorded Confirmed atorvastatin 80 mg tablet 80 mg PO DAILY 10/04/24 10/04/24 fenofibrate nanocrystallized 145 145 mg PO DAILY 10/04/24 10/04/24 mg tablet omeprazole 40 mg capsule,delayed 40 mg PO DAILY 10/04/24 10/04/24 release Allergies Allergy/AdvReac Type Severity Reaction Status Date / Time No Known Allergies Allergy Verified 10/04/24 06:11 Review of Systems Review of Systems: All systems reviewed & are unremarkable except as noted in HPI and below PMFSH Past Medical History Medical History (Updated 10/05/24 @ 19:27 by Joi Prado MD) Dyslipidemia Surgical History Surgical History (Updated 10/05/24 @ 16:23 by Mayte Dutta PA-C) No history of previous surgery Social History Social History Social History: alcohol use Exam Narrative: GENERAL: Slightly jaundice, in no acute distress, pleasant cooperative HEAD: Normocephalic, atraumatic. EYES: PERRLA and EOMI. Conjunctiva are mildly jaundiced ENT: Mucous membranes moist. NECK: Supple. CHEST: Clear to auscultation. No respiratory distress. HEART: Regular rate and rhythm ABDOMEN: Soft, + right upper quadrant tenderness without guarding or rebound EXTREMITIES: Normal range of motion. No edema. SKIN: Warm, dry, no rash. NEURO: No focal deficits. Alert and oriented x3. PSYCH: Normal mood and affect. Course Vital Signs Vital signs: Vital Signs Pulse Rate 73 10/05/24 12:59 Respiratory Rate 17 10/05/24 12:59 Blood Pressure 168/98 H 10/05/24 12:59 Pulse Oximetry 100 10/05/24 12:59 Oxygen Delivery Room Air 10/05/24 12:59 Temperature 98.0 F 10/05/24 18:55 Pulse Rate 111 H 10/05/24 18:55 Respiratory Rate 20 10/05/24 18:55 Blood Pressure 175/72 H 10/05/24 18:55 Pulse Oximetry 100 10/05/24 18:55 Oxygen Delivery Room Air 10/05/24 12:59 MDM - Abdominal Pain MDM Narrative Medical decision making narrative: 43-year-old male presenting with right upper quadrant pain. Vitals are stable. Exam remarkable for the above. Blood work with leukocytosis of 14.5. CT abdomen pelvis shows acute cholecystitis with pretty prominent pericholecystic stranding. He does have tra nsaminitis with a T bili of 8.4, AST ALT in 4 to 500s, alk-phos 154. I spoke with general surgery who agrees with IV antibiotics and fluids. He is happy to see the patient. Advised admission to Medicine with GI consult. I spoke with Gastroenterology your recommends getting a right upper quadrant ultrasound as well as an MRCP. States that he does not need to be formally consult unless there is evidence of choledocholithiasis. Discussed the findings with the patient. He is agreeable with admission. Spoke with the hospitalist was accepted him for admission. Differential Diagnosis Differential diagnosis: Likely abdominal pain, diverticulitis, gastroenteritis, pancreatitis and other (Acute cholecystitis, transaminitis) Medical Records Attestation: I reviewed the patient's medical records. Lab Data Attestation: I reviewed the patient's lab results. 10/05/24 13:20 10/05/24 13:20 Labs: Lab Results 10/05/24 Range/Units 13:20 WBC 14.5 H (4.5-10.0) K/mm3 RBC 4.57 L (4.6-6.20) M/mm3 Hgb 13.9 L (14.0-18.0) g/dL Hct 41.2 L (42.0-52.0) % MCV 90.2 (80-100) fl MCH 30.4 (26-34) pg MCHC 33.7 (32-36) g/dl RDW 12.9 (11.5-14.5) % Plt Count 186 (150-375) k/mm3 MPV 11.7 H (7.4-10.4) fl Immature Gran % (Auto) 1.1 H (0-0.5) % Neut % (Auto) 90.2 H (45.5-73.1) % Lymph % (Auto) 3.2 L (18.3-44.2) % [place] % (Auto) 5.0 (2.6-8.5) % Eos % (Auto) 0.1 (0-4.4) % Baso % (Auto) 0.4 (0.2-1.2) % Lymph # (Auto) 0.47 L (0.9-3.2) K/mm3 [place] # (Auto) 0.7 H (0.1-0.6) K/mm3 Eos # (Auto) 0.0 (0-0.3) K/mm3 Baso # (Auto) 0.1 (0.0-0.1) K/mm3 Abs Immat Gran (auto) 0.16 H (0.00-0.031) K/mm3 Absolute Neuts (auto) 13.1 H (1.3-6.7) K/mm3 Absolute Nucleated RBC 0.000 (0.0-0.012) K/mm3 Nucleated RBC % 0.0 (0.0-0.2) % Sodium 134 L (137-145) mmol/L Potassium 3.6 (3.4-5.0) mmol/L Chloride 99 (98-107) mmol/L Carbon Dioxide 22 (22-30) mmol/L Anion Gap 13 H (4-12) mmol/L BUN 10 (9-20) mg/dL Creatinine 0.80 (0.7-1.3) mg/dL Estim Creat Clear Calc 134 ml/min Estimated GFR > 60 (59 - ) Glucose 152 H (65-110) mg/dL Lactic Acid 1.9 (0.7-2.0) mmol/L Calcium 9.3 (8.4-10.2) mg/dL Total Bilirubin 8.4 H (0.2-1.3) mg/dL AST 453 H (17-59) U/L ALT 502 H (6-50) U/L Alkaline Phosphatase 154 H (38-126) U/L Total Protein 8.0 (6.3-8.2) g/dL Albumin 4.5 (3.5-5.1) g/dL Lipase 44 (23-300) U/L Urine Color Dark yellow (Yellow) Urine Appearance Clear (Clear) Urine pH 7.5 (5.0-9.0) Ur Specific [place] 1.032 (1.001-1.035) Urine Protein 2+ H (Negative) mg/dL Urine Glucose (UA) Negative (Negative) mg/dL Urine Ketones Trace H (Negative) mg/dL Ur Blood (Man) Negative (Negative) Urine Nitrate Positive H (Negative) Urine Bilirubin 3+ H (Negative) Urine Urobilinogen 1.0 (<2.0) mg/dL Add Ur Microanalysis Reviewed Leukocyte Esterase Rfl 1+ H (Negative) PEDRO/UL Urine RBC 0-2 (0-2) /hpf Urine WBC 0-5 (0-3) /hpf Ur Squamous Epith Cells None seen (Few) /hpf Urine Bacteria None seen /hpf Urine Casts 0-2 Imaging Data Radiologist's impression: ITS Impressions Abdomen/Pelvis CT 10/05/24 15:11 IMPRESSION: Acute cholecystitis, with prominent pericholecystic fat st randing/inflammation since yesterday Diverticulosis of the left colon; no evidence of diverticulitis Normal appendix Subtle focal diminished attenuation in the lower right hepatic lobe, possibly focal fatty infiltration. MRI has been recommended differentiate benign from malignant process. Abdomen Ultrasound 10/05/24 16:51 IMPRESSION: Gallbladder distention and wall thickening; acute cholecystitis is suspected. No definite gallstones are noted. Consider occult gallstone or acalculous cholecystitis. Focal hyperechoic area right hepatic lobe corresponding to CT finding, possibly focal fatty infiltration or hemangioma Critical Care Time Critical Care Time Critical Care Time: No Discharge Plan Discharge Clinical Impression: Acute cholecystitis, Transaminitis Patient Disposition: Still a Patient Condition: Stable
[2024-10-05 14:14] VITALS: BP 158/100; PULSE 70; RESP 16; O2SAT 100
[2024-10-05] MEDS: ONDANSETRON HCL ODT 4 MG TABLET PO (14:15)
[2024-10-05] MEDS: HYDROmorphone HCL INJ (*CRX) 1 MG/ML SYR IV PUSH ×2 (14:16→16:15)
[2024-10-05] MEDS: SODIUM CHLORIDE 0.9% IV 1,000 ML 999 ML IV CONT (14:16)
[2024-10-05 15:25] VITALS: BP 156/82; PULSE 66; RESP 16; TEMP 36.6; O2SAT 98
[2024-10-05] MEDS: cefTRIAXone 2 GM/NS 100 ML 2 GM/100 ML BAG IVPB (16:17)
--- NOTE | 2024-10-05 16:20 | P.HP_ITS ---
H&P: HPI History of Present Illness Date/Time: 10/05/24 16:20 Chief Complaint: Abdominal pain. Narrative: This is a 43-year-old male with dyslipidemia gastroesophageal reflux disease who presented to the emergency department via private vehicle for evaluation of abdominal pain. The patient provides the following history. Last Sunday not long after eating lunch he developed pain in the right upper quadrant with nausea and vomiting which seemed to improve with Pepto-Bismol. He has had intermittent episodes of similar symptoms since that time, mainly at nighttime. He was seen in the emergency department the [facility] yesterday morning after he developed a fever to 101? F. CT scan at that time showed a 3 mm nonobstructing right renal stone and indeterminate 2 cm ill- defined hypodense lesion in the right hepatic lobe. He improved with supportive care and was discharged home with instructions to follow-up as an outpatient. Unfortunately his pain returned shortly thereafter and has been increasingly intense and is now essentially constant. The pain is sharp and stabbing in nature and radiates around the flank and through to the back. He continues to have nausea and vomiting. He has been drinking water and Pedialyte but is not been able to hold much down. He feels a little short of breath but goes on to say that taking a deep breath causes the pain to be worse. Stools have been greasy and floating and mining captain in color than usual. He denies cold and flu symptoms, chest pain, pleuritic pain, cough, hematemesis, melena, hematochezia, dysuria, and hematuria. He has not had alcohol for several days and denies alcohol withdrawal symptoms. In the ED: He was afebrile on arrival. Blood pressures have been running in the 150s to low 170s systolic. The remainder of his vital signs are stable. Labs were significant for WBC count of 14.5, hemoglobin 13.9, sodium 134, glucose 152, lactic acid blood 0.9, total bilirubin 8.4, AST 453, ALT 502, alkaline phosphatase 154, lipase 44. Urinalysis was positive for 2+ protein, trace ketones, positive nitrates, 3+ bilirubin, 1+ leukocyte esterase, and 0 to 5 WBC per high-power field. CT of the abdomen and pelvis showed acute cholecystitis with prominent ne cholecystic fat stranding/inflammation compared to yesterday and subtle focal diminished attenuation in the lower right hepatic lobe. He was given a dose of ceftriaxone and metronidazole as well as antiemetics and analgesics. He is being admitted in this setting for further treatment and surgery consultation. Review of Systems Review of Systems: 12 systems were reviewed and are negativ e except for as per HPI. [facility] Past Medical History Medical History Daily consumption of alcohol Dyslipidemia Surgical History Surgical History No history of previous surgery Family History Family History (Updated 10/05/24 @ 19:45 by Mayte Dutta PA-C) Other Family history non-contributory Social History Social History (Updated 10/05/24 @ 19:46 by Mayte Dutta PA-C) Social History: Surrogate medical decision maker: sheela Rosario. Code status: Full code. Smoking status: Former smoker Tobacco type: e-cigarettes/vaping Alcohol intake: current Drinks per week: 21 Alcohol use details: 2 to 3 beers a night with a few shots of whiskey Meds Home Medications and Allergies Home Medications Medication Instructions Recorded Confirmed Type atorvastatin 80 mg tablet 80 mg PO DAILY 10/04/24 10/04/24 History fenofibrate nanocrystallized 145 145 mg PO DAILY 10/04/24 10/04/24 History mg tablet hydrocodone 5 mg-acetaminophen 325 1 tablet PO Q8H PRN pain #10 tabs 10/04/24 Rx mg tablet omeprazole 40 mg capsule,delayed 40 mg PO DAILY 10/04/24 10/04/24 History release Allergies Allergy/AdvReac Type Severity Reaction Status Date / Time No Known Allergies Allergy Verified 10/04/24 06:11 Vital Signs Vital Signs - 24 hr 10/05/24 12:59 10/05/24 14:14 10/05/24 15:25 Temperature 97.8 F Pulse Rate 73 70 66 Respiratory Rate 17 16 16 Blood Pressure 168/98 H 158/100 H 156/82 H Pulse Oximetry 100 100 98 Oxygen Delivery Room Air Exam Narrative: General: Mildly ill-appearing male in in moderate pain sitting up in bed. Weight: 118.2 kg. BMI: 37.4. HEENT: PERRL, EOMI. Sclera anicteric. Cardiac have a mildly injected. Tacky mucous membranes. Neck: Supple. Respiratory: Lungs are clear to auscultation bilaterally. Cardiovascular: Regular rate and rhythm with S1-S2. Gastrointestinal: Abdomen is slightly distended with decreased bowel sounds. He is exquisitely tender to palpation the right upper quadrant with voluntary guarding but no rebound tenderness. Positive Stuart sign. Skin: Warm and dry. Does not appear jaundiced. Extremities: No cyanosis, clubbing, or edema. Radial and pedal pulses intact. Neurological: Alert. Cranial nerves 2-12 are grossly intact. No gross focal deficits to casual conversation. Psychiatric: Cooperative with appropriate mood and affect. H&P: Results Labs Labs: Short CBC 10/05/24 Range/Units 13:20 WBC 14.5 H (4.5-10.0) K/mm3 Hgb 13.9 L (14.0-18.0) g/dL Hct 41.2 L (42.0-52.0) % Plt Count 186 (150-375) k/mm3 BMP 10/05/24 13:20 Sodium 134 L Potassium 3.6 Chloride 99 Carbon Dioxide 22 BUN 10 Creatinine 0.80 Glucose 152 H Calcium 9.3 Liver Function 10/05/24 Range/Units 13:20 Total Bilirubin 8.4 H (0.2-1.3) mg/dL AST 453 H (17-59) U/L ALT 502 H (6-50) U/L Alkaline Phosphatase 154 H (38-126) U/L Albumin 4.5 (3.5-5.1) g/dL Urine 10/05/24 Range/Units 13:20 Urine Color Dark yellow (Yellow) Urine Appearance Clear (Clear) Urine pH 7.5 (5.0-9.0) Ur Specific [place] 1.032 (1.001-1.035) Urine Protein 2+ H (Negative) mg/dL Urine Glucose (UA) Negative (Negative) mg/dL Imaging Abdomen/Pelvis CT 10/05/24 15:11 IMPRESSION: 1. Acute cholecystitis, with prominent pericholecystic fat stranding/inflammation since yesterday. 2. Diverticulosis of the left colon; no evidence of diverticulitis. 3. Normal appendix. 4. Subtle focal diminished attenuation in the lower right hepatic lobe, possibly focal fatty infiltration. MRI has been recommended differentiate benign from malignant process. Assessment and Plan Assessment and plan (1) Acute cholecystitis: Code(s): K81.0 - Acute cholecystitis Status: Acute (2) Transaminitis: Code(s): R74.01 - Elevation of levels of liver transaminase levels Status: Acute (3) Hyperglycemia: Code(s): R73.9 - Hyperglycemia, unspecified Status: Acute (4) Dyslipidemia: Code(s): E78.5 - Hyperlipidemia, unspecified Status: Acute (5) Daily consumption of alcohol: Code(s): Z78.9 - Other specified health status Status: Acute Plan The patient presented to the emergency department for evaluation of right upper quadrant pain as detailed in HPI. Labs, imaging, EKG, and all reports were personally reviewed. Imaging and exam findings are consistent with acute cholecystitis. He has been started on Zosyn and will be placed on bowel rest. Analgesics and antiemetics are available as needed. Dr. Manrique was consulted by the ED physician and his input is appreciated. Transaminases are quite elevated though no ductal dilatation or gallstones were noted on imaging. MRCP has been ordered. Blood pressures have been running high due to pain and will be monitored closely. Check fasting glucose hemoglobin A1c. He denies having signs or symptoms of alcohol withdrawal however will initiate CIWA protocol. His home medications will be reviewed and resumed as appropriate. Findings and treatment plan were discussed with the patient. Questions were solicited and answered to satisfaction. The patient's medical management will be taken over by the hospitalist team in a.m. Quality VTE Prophylaxis VTE prophylaxis: mechanical ordered If No VTE Prophylaxis Answer both mechanical and pharmacologic: Reason no pharmacologic proph: medical contraindication (may need procedure) The patient has been admitted under observation status. Hospitalist [facility] Advance Care Plan I have confirmed that the patient's Advanced Care Plan is present, code status is documented, or surrogate decision maker is listed in patient medical record.: Yes Medication Reconciliation I have utilized all available resources to obtain, update and review the patients current medications (includes all prescriptions, OTC, herbals, cannabis, and nutritional supplements).: Yes
[2024-10-05 17:04] VITALS: BP 143/81; PULSE 68; RESP 16; O2SAT 95
[2024-10-05] MEDS: metroNIDAZOLE 500 MG/ISO 100ML 500 MG/100 ML BAG 100 MG IVPB (17:06)
[2024-10-05 18:55] VITALS: BP 175/72; PULSE 111; RESP 20; TEMP 36.7; O2SAT 100
--- NOTE | 2024-10-05 19:30 | PC.NURSE ---
pt to floor at 1805
[2024-10-05 20:01] VITALS: BMI 39.6
--- NOTE | 2024-10-05 20:03 | ADMGEN ---
This patient, Flaquito Livingston, was admitted to 3 [facility] Surg Room 315-02. Patient/family oriented to hospital policies and general routines including ID bracelet, bed and alarms, visiting hours, pain management, procedures, bathroom and other care routines, personal items, smoking policy, room service/diet, and visiting hours. Information on how to activate the Rapid Response Team has been discussed. Patient/Family are encouraged to report perceived risks to care and to ask questions if they do not understand what they are told or what they should do.
[2024-10-05] MEDS: HYDROmorphone HCL INJ (*CRX) 1 MG/ML SYR 0.5 MG IV PUSH ×3 (20:13→23:34)
[2024-10-05] MEDS: ONDANSETRON INJ 4 MG/2 ML VIAL IV PUSH (20:13)
[2024-10-05] MEDS: SODIUM CHLORIDE 0.9% IV 1,000 ML 100 ML IV CONT (20:29)
[2024-10-05] MEDS: PIPERACILLN/TAZ 3.375GM/NS50ML 3.375 GM/50 ML BAG IVPB (20:29)
[2024-10-05] MEDS: THIAMINE HCL 200 MG/2 ML VIAL 100 MG IV PUSH (20:33)
[2024-10-05 20:51] LABS: INR 1.3; Prothrombin Time 16.3 Seconds (11.1-14.7)
[2024-10-05 20:52] LABS: Partial Thromboplastin Time 31.9 Seconds (22.3-36.8)
[2024-10-05 21:05] LABS: Magnesium 1.4 mg/dL (1.6-2.3)
[2024-10-05 21:10] VITALS: BP 152/86; PULSE 95; RESP 16; TEMP 37.4; O2SAT 95
[2024-10-05 21:46] LABS: Hepatitis B Surface Antigen Negative (Negative)
[2024-10-05 21:51] LABS: HAV RESULT Negative (Negative); Hepatitis B Core IgM Result Negative (Negative)
[2024-10-05 22:03] LABS: Hepatitis C Virus Antibody Negative (Negative)
[2024-10-06] MEDS: HYDROmorphone HCL INJ (*CRX) 1 MG/ML SYR IV PUSH ×6 (01:45→20:04)
[2024-10-06] MEDS: PIPERACILLN/TAZ 3.375GM/NS50ML 3.375 GM/50 ML BAG IVPB ×4 (03:00→20:05)
[2024-10-06] MEDS: ONDANSETRON INJ 4 MG/2 ML VIAL IV PUSH ×3 (04:08→22:17)
[2024-10-06] MEDS: SODIUM CHLORIDE 0.9% IV 1,000 ML 100 ML IV CONT ×2 (05:12→15:49)
[2024-10-06 06:00] VITALS: BP 158/88; PULSE 72; RESP 16; TEMP 36.9; O2SAT 97
[2024-10-06 07:18] LABS: Hemoglobin 12.8 g/dL (14.0-18.0); Mean Corpuscular HGB Conc 33.7 g/dl (32-36); Mean Corpuscular Hemoglobin 30.2 pg (26-34); Mean Corpuscular Volume 89.6 fl (80-100); Mean Platelet Volume 11.5 fl (7.4-10.4); Platelet Count Result 174 k/mm3 (150-375); Red Blood Count 4.24 M/mm3 (4.6-6.20); Red Cell Distribution Width 13.2 % (11.5-14.5); White Blood Count 12.4 K/mm3 (4.5-10.0)
[2024-10-06 07:38] LABS: Alanine Aminotransferase 356 U/L (6-50); Alkaline Phosphatase 135 U/L (38-126); Anion Gap 10 mmol/L (4-12); Aspartate Amino Transferase 170 U/L (17-59); Bilirubin,Total 6.6 mg/dL (0.2-1.3); Blood Urea Nitrogen 10 mg/dL (9-20); Calcium 8.9 mg/dL (8.4-10.2); Carbon Dioxide 23 mmol/L (22-30); Chloride 101 mmol/L (98-107); Estimated CRCL calculation 158 ml/min; Estimated Glomerular Filt Rate > 60; Glucose 140 mg/dL (65-110); Lipase 39 U/L (23-300); Magnesium 1.7 mg/dL (1.6-2.3); Potassium 3.5 mmol/L (3.4-5.0); Sodium 134 mmol/L (137-145)
[2024-10-06 08:18] LABS: Hemoglobin A1C 5.8 % (<5.7)
[2024-10-06 08:52] VITALS: O2SAT 94
[2024-10-06] MEDS: THIAMINE HCL 200 MG/2 ML VIAL 100 MG IV PUSH (09:32)
[2024-10-06] MEDS: PANTOPRAZOLE SODIUM IV 40 MG VIAL IV PUSH (09:32)
--- NOTE | 2024-10-06 10:39 | P.PNIM_ITS ---
Progress Note: A&P Assessment and Plan (1) Acute cholecystitis: Code(s): K81.0 - Acute cholecystitis Status: Acute Assessment and Plan: * abdomen/pelvis CT shows acute cholecystitis with prominent ne cholecystic fat stranding/ inflammation since yesterday, diverticulosis of the left colon no evidence of diverticulitis, subtle focal diminished attenuation in the lower right hepatic lobe possibly focal fatty infiltration. * Abdomen ultrasound shows gallbladder distention and wall thickening, acute cholecystitis is suspected, focal hyperechoic area in the right hepatic lobe * patient initially given Rocephin and Flagyl in the ED * transitioned antibiotic to Zosyn * continue IV fluids * continue NPO status * MRCP shown common bile duct stone as well as stones in the cystic duct with findings of acute cholecystitis * ? ERCP with GI versus surgical intervention * initial white blood cell count 14.5, total bili 8.4, AST 453, ALT 502, alk- phos 154 * today white blood cell count 12.4, total bili 6.6, AST 170, ALT 356, alk phos 135 (2) Transaminitis: Code(s): R74.01 - Elevation of levels of liver transaminase levels Status: Acute Assessment and Plan: secondary to acute cholecystitis * today white blood cell count 12.4, total bili 6.6, AST 170, ALT 356, alk phos 135 * see above plan of care (3) Hyperglycemia: Code(s): R73.9 - Hyperglycemia, unspecified Status: Acute Assessment and Plan: * blood sugars ranging 140-152 * hemoglobin A1c 5.8 * continue to trend (4) Dyslipidemia: Code(s): E78.5 - Hyperlipidemia, unspecified Status: Acute Assessment and Plan: * continue atorvastatin and fenofibrate (5) Daily consumption of alcohol: Code(s): Z78.9 - Other specified health status Status: Acute Assessment and Plan: * patient admits to drinking 2-3 beers a night with few shots of whiskey Time Spent With Patient Time with patient: Greater than 35 minutes Subjective Date/time seen: 10/06/24 10:39 Interval history: Interval history: This is a 43-year-old male who present wanted to the hospital on 10/05/2024 with complaints of abdominal pain. Abdomen/ pelvis CT showed 3 mm nonobstructing right renal stone, indeterminate 2 cm ill defined hypodense lesion in the right hepatic lobe which could be either benign or malignant. CT of abdomen pelvis was repeated on 10/05/2024 which showed acute cholecystitis with prominent pericholecystic fat stranding/ inflammation since yesterday diverticulosis of the left colon no evidence of diverticulitis, normal appendix, subtle focal diminished attenuation in the lower right hepatic lobe possibly focal fat infiltration. abdomen ultrasound shown gallbladder distention and wall thickening as seen with acute cholecystitis, node definite gallstones are noted, focal hyperechoic area in the right hepatic lobe possibly focal fatty infiltration or hemangioma. Initial labs showed a white blood cell count of 14.5, RBC 4.57, hemoglobin 13.9, INR 1.3, sodium 134, AST 453, ALT 504, alk-phos 154, total bili 8.4, magnesium 1.4. UA was obtained and showed 2+ urine protein, trace urine ketone, positive nitrate, 3+ urine bili, 1+ leukocytes. Hepatitis panel negative. MRCP showing obstructing common bile duct stone as well as stones in the cystic duct with findings of acute cholecystitis. Subjective: Patient denies any fever, chills, diarrhea, chest pain, shortness of breath. Patient endorses abdominal pain, nausea, and vomiting. Labs and imaging reviewed. Review of Systems Review of Systems: All systems reviewed & are unremarkable except as noted in HPI and below Constitutional: Constitutional: Reports as per HPI and Reports no additional constitutional complaints Eyes: Eyes: Reports as per HPI and Reports no additional eye complaints ENT: Reports system reviewed and no additional complaints, except as documented and Reports as per HPI Cardiovascular: Cardiovascular: Reports as per HPI and Reports no additional cardiovascular complaints Respiratory: Respiratory: Reports as per HPI and Reports no additional respiratory complaints Gastrointestinal: Gastrointestinal: Reports as per HPI and Reports no additional gastrointestinal complaints Genitourinary: Genitourinary: Reports no additional male genitourinary complaints and Reports as per HPI Musculoskeletal: Musculoskeletal: Reports no additional musculoskeletal com plaints and Reports as per HPI Integumentary/Breasts: Skin/Breast: Reports system reviewed and no additional complaints, except as docu and Reports as per HPI Neurologic: Reports system reviewed and no additional complaints, except as documented and Reports as per HPI Psychiatric: Psychiatric: Reports no additional psychiatric complaints and Reports as per HPI Exam Narrative: General: In no acute distress, well nourished Head: atraumatic, no encephalopathy Eyes: PERRLA, sclera clear ENT: moist mucous membranes, nasal passages clear Neck: supple, no JVD, no adenopathy, trachea midline Cardiac: Normal S1 and S2. RRR, No murmur, gallops or friction rubs, peripheral pulses intact. Respiratory: Lungs clear to auscultation, no adventitious lung sounds, currently on room air Gastrointestinal: soft, non-distended, tenderness, normoactive bowel sounds. : voiding without difficulty. Extremities: moves all extremities well, no edema Skin: clean, dry, intact. No wounds or lesions. Neuro: Alert and oriented x4, cranial nerves intact, no neuro deficits. Psych: normal mood, normal affect, interactive Objective Data Vital Signs Vital Signs: Vital Signs - 24 hr 10/05/24 12:59 10/05/24 14:14 10/05/24 15:25 Temperature 97.8 F Pulse Rate 73 70 66 Respiratory Rate 17 16 16 Blood Pressure 168/98 H 158/100 H 156/82 H Pulse Oximetry 100 100 98 Oxygen Delivery Room Air Fraction of Inspired Oxygen 10/05/24 17:04 10/05/24 18:55 10/05/24 18:15 Temperature 98.0 F Pulse Rate 68 111 H Respiratory Rate 16 20 Blood Pressure 143/81 H 175/72 H Pulse Oximetry 95 100 Oxygen Delivery Room Air Fraction of Inspired Oxygen 10/05/24 21:10 10/06/24 06:00 10/06/24 08:52 Temperature 99.3 F 98.4 F Pulse Rate 95 72 Respiratory Rate 16 16 Blood Pressure 152/86 H 158/88 H Pulse Oximetry 95 97 94 Oxygen Delivery Room Air Fraction of Inspired Oxygen 21 Intake/Output Intake/Output: Intake & Output 10/03/24 10/04/24 10/05/24 10/06/24 23:59 23:59 23:59 23:59 Intake Total 1250 971.7 Balance 1250 971.7 Meds/Results Medications: Active Medications Generic Name Dose Route Start Last Admin Trade Name Freq PRN Reason Stop Dose Admin Hydromorphone HCl 0.5 mg 10/05/24 23:12 Hydromorphone Hcl Inj (*Crx) 1 Mg/Ml Syr IV PUSH Q3H PRN Pain Rated 4-6 Hydromorphone HCl 1 mg 10/05/24 23:12 10/06/24 08:31 Hydromorphone Hcl Inj (*Crx) 1 Mg/Ml Syr IV PUSH 1 mg Q3H PRN Administration Pain Rated 7-10 Piperacillin/Tazobactam/Dextrose 3.375 gm in 50 mls @ 100 mls/hr 10/05/24 21:00 10/06/24 10:03 Zosyn 3.375 Gm/Ns 50 Ml IVPB Infused Q6H ODILIA Infusion Sodium Chloride 1,000 mls @ 100 mls/hr 10/05/24 19:55 10/06/24 05:12 Normal Saline Iv IV CONT 100 mls/hr .Q10H ODILIA Administration Lorazepam 2 mg 10/05/24 19:50 Lorazepam Inj (*Crx) 2 Mg/Ml Vial IV PUSH Q2H PRN CIWA 8-15 Lorazepam 4 mg 10/05/24 19:50 Lorazepam Inj (*Crx) 2 Mg/Ml Vial IV PUSH Q2H PRN CIWA > 15 Ondansetron HCl 4 mg 10/05/24 19:36 10/06/24 04:08 Ondansetron Inj 4 Mg/2 Ml Vial IV PUSH 4 mg Q6H PRN Administration Nausea And Vomiting Pantoprazole Sodium 40 mg 10/06/24 09:00 10/06/24 09:32 Pantoprazole Sodium Iv 40 Mg Vial IV PUSH 40 mg QAM ODILIA Administration Thiamine HCl 100 mg 10/06/24 09:00 10/06/24 09:32 Thiamine Hcl 200 Mg/2 Ml Vial IV PUSH 100 mg QAM ODILIA Administration Radiology Results: ITS Impressions Abdomen/Pelvis CT 10/05/24 15:11 IMPRESSION: Acute cholecystitis, with prominent pericholecystic fat stranding/inflammation since yesterday Diverticulosis of the left colon; no evidence of diverticulitis Normal appendix Subtle focal diminished attenuation in the lower right hepatic lobe, possibly focal fatty infiltration. MRI has been recommended differentiate benign from malignant process. Abdomen Ultrasound 10/05/24 16:51 IMPRESSION: Gallbladder distention and wall thickening; acute cholecystitis is suspected. No definite gallstones are noted. Consider occult gallstone or acalculous cholecystitis. Focal hyperechoic area right hepatic lobe corresponding to CT finding, possibly focal fatty infiltration or hemangioma Labs Labs: Laboratory Results - last 24 hr 10/05/24 10/05/2410/06/24 13:20 20:35 06:54 WBC 14.5 H 12.4 H RBC 4.57 L 4.24 L Hgb 13.9 L 12.8 L Hct 41.2 L 38.0 L MCV 90.2 89.6 MCH 30.4 30.2 MCHC 33.7 33.7 RDW 12.9 13.2 Plt Count 186 174 MPV 11.7 H 11.5 H Immature Gran % (Auto) 1.1 H Neut % (Auto) 90.2 H Lymph % (Auto) 3.2 L [place] % (Auto) 5.0 Eos % (Auto) 0.1 Baso % (Auto) 0.4 Lymph # (Auto) 0.47 L [place] # (Auto) 0.7 H Eos # (Auto) 0.0 Baso # (Auto) 0.1 Abs Immat Gran (auto) 0.16 H Absolute Neuts (auto) 13.1 H Absolute Nucleated RBC 0.000 Nucleated RBC % 0.0 PT 16.3 H INR 1.3 APTT 31.9 Sodium 134 L 134 L Potassium 3.6 3.5 Chloride 99 101 Carbon Dioxide 22 23 Anion Gap 13 H 10 BUN 10 10 Creatinine 0.80 0.70 Estim Creat Clear Calc 134 158 Estimated GFR > 60 > 60 Glucose 152 H 140 H Hemoglobin A1c 5.8 H Lactic Acid 1.9 Calcium 9.3 8.9 Magnesium 1.4 L 1.7 Total Bilirubin 8.4 H 6.6 H AST 453 H 170 H ALT 502 H 356 H Alkaline Phosphatase 154 H 135 H Total Protein 8.0 7.0 Albumin 4.5 4.0 Lipase 44 39 Urine Color Dark yellow Urine Appearance Clear Urine pH 7.5 Ur Specific [place] 1.032 Urine Protein 2+ H Urine Glucose (UA) Negative Urine Ketones Trace H Ur Blood (Man) Negative Urine Nitrate Positive H Urine Bilirubin 3+ H Urine Urobilinogen 1.0 Add Ur Microanalysis Reviewed Leukocyte Esterase Rfl 1+ H Urine RBC 0-2 Urine WBC 0-5 Ur Squamous Epith Cells None seen Urine Bacteria None seen Urine Casts 0-2 Hepatitis A IgM Ab Negative Hep Bs Antigen Negative Hep B Core IgM Ab Negative Hepatitis C Ab Screen Negative Quality VTE Prophylaxis VTE prophylaxis: mechanical ordered
--- NOTE | 2024-10-06 12:05 | PM.CNGS ---
Assessment and Plan Assessment and plan (1) Acute cholecystitis: Code(s): K81.0 - Acute cholecystitis Status: Acute Assessment and Plan: CT and ultrasound showing findings of acute cholecystitis. MRCP today showed common bile duct stone as well as stones in the cystic duct with findings of acute cholecystitis. Continue broad-spectrum IV antibiotics and keep him NPO with IV fluids. Will consult GI for ERCP. Patient will eventually need a laparoscopic cholecystectomy, which was discussed. Will continue to follow along to decide on timing of surgery following GI evaluation. (2) Sepsis: Code(s): A41.9 - Sepsis, unspecified organism Status: Acute Assessment and Plan: Secondary to acute cholecystitis vs ascending cholangitis. Continue IV Zosyn. Will consult GI. Blood cultures on 10/05 growing gram negative bacilli. (3) Choledocholithiasis with obstruction: Code(s): K80.51 - Calculus of bile duct without cholangitis or cholecystitis with obstruction Status: Acute Assessment and Plan: MRCP showed common bile duct stone as well as stones in the cystic duct with findings of acute cholecystitis. Will consult GI for possible ERCP and leave the patient NPO. (4) Transaminitis: Code(s): R74.01 - Elevation of levels of liver transaminase levels Status: Acute Assessment and Plan: Elevated LFTs with his total bilirubin jumping up to 8 on admission, when it was normal the day prior. MRCP this morning showed choledocholithiasis, which is likely the cause. Will consult GI. (5) Daily consumption of alcohol: Code(s): Z78.9 - Other specified health status Status: Acute Assessment and Plan: Encouraged cessation, which he has been slowly tapering down his alcohol intake for months. (6) Dyslipidemia: Code(s): E78.5 - Hyperlipidemia, unspecified Status: Acute Plan I have discussed the patient's case and plan of care with Dr. Manrique. Thank you for allowing us to see the patient in consultation and we will continue to follow along with you. History of Present Illness Consult details Consult date: 10/06/24 Reason for consult: other (Acute cholecystitis) Requesting physician: Joi Prado MD Narrative: This is a 43-year-old man with PMH of alcohol abuse, hyperlipidemia, and GERD, who we have been asked to see in surgical consultation for acute cholecystitis. He reports having intermittent episodes in the past of RUQ pain following meals that would resolve spontaneously after about an hour or two. Last week, he had an episode of similar pain that was associated with a fever, chills, nausea, and vomiting. His symptoms improved and his pain resolved by the following day. Then, two days ago, he had eaten lasagna for dinner and went to bed feeling well. He woke up in middle of the night with an acute onset of the RUQ abdominal pain. He had associated nausea and vomiting. His pain was more severe and constant, which ultimately brought him into [facility] ED for evaluation. Workup showed mild leukocytosis of 11,000 and mild elevated of AST/ALT, but otherwise unremarkable labs. CT scan of the abdomen and pelvis showed no acute intraabdominal process, and he was released home. His pain remained constant and he developed another fever, reportedly as high as 103F. He continued to have nausea, vomiting, and chills. He reports also noticing dark orange-colored urine over the weekend and acholic stools. His family also reports noticing jaundice yesterday. Due to his persistent symptoms, he was brought into [place] ER yesterday. CT scan of the abdomen pelvis showed acute cholecystitis but no CT evidence of cholelithiasis. Labs showed WBC count 14,500, total bilirubin up to 8.4, AST 453, ALT 5 O2, alk-phos 154. Lipase normal. The patient was admitted to the hospitalist service. He had a right upper quadrant abdominal ultrasound that showed gallbladder distention and wall thickening consistent with acute cholecystitis, but no definite gallstones noted on ultrasound. Also seen is a focal hyperechoic area of right hepatic lobe possibly fatty infiltration or hemangioma. The patient is now seen on the medical floor. MRCP was ordered. No previous abdominal surgeries. The patient does report heavy alcohol use and over the past 8 months has been slowly titrating down his alcohol intake. He is down to 3 beers per day. He has been discussing this with his primary care provider to safely wean off alcohol. Review of Systems Review of Systems: All systems reviewed & are unremarkable except as noted in HPI and below PMFSH Past Medical History Medical History Daily consumption of alcohol Dyslipidemia GERD (gastroesophageal reflux disease) Surgical History Surgical History No history of previous surgery Family History Family History Other Family history non-contributory Social History Social History Social History: Surrogate medical decision maker: sheela Rosario. Code status: Full code. Years smoked: 25 Smoking status: Current every day smoker Tobacco type: e-cigarettes/vaping Second hand tobacco smoke exposure: No Alcohol intake: current Drinks per week: 4 Alcohol use details: 2 to 3 beers a night with a few shots of whiskey Substance use: current Substance use type: marijuana Last use: 10/05/24 Do You Feel Safe in your Home?: Yes Lack of Transportation: No Lack of Food: Never True Current Housing: I Have Housing Concerned About Future Housing: No Difficulty Paying Gas/Electric Bills: No Difficulty Paying for Meds: No Currently Unemployed: No Education: High School Diploma/GED Difficulty w/ Childcare or Family Care: No Spiritual care concerns: No Meds Home Medications and Allergies Home Medications Medication Instructions Recorded Confirmed Type atorvastatin 80 mg tablet 80 mg PO DAILY 10/04/24 10/05/24 History fenofibrate nanocrystallized 145 145 mg PO DAILY 10/04/24 10/05/24 History mg tablet hydrocodone 5 mg-acetaminophen 325 1 tablet PO Q8H PRN pain #10 tabs 10/04/24 10/05/24 Rx mg tablet omeprazole 40 mg capsule,delayed 40 mg PO DAILY 10/04/24 10/05/24 History release Allergies Allergy/AdvReac Type Severity Reaction Status Date / Time No Known Allergies Allergy Verified 10/04/24 06:11 Vital Signs Vital Signs - 24 hr 10/05/24 12:59 10/05/24 14:14 10/05/24 15:25 Temperature 97.8 F Pulse Rate 73 70 66 Respiratory Rate 17 16 16 Blood Pressure 168/98 H 158/100 H 156/82 H Pulse Oximetry 100 100 98 Oxygen Delivery Room Air Fraction of Inspired Oxygen 10/05/24 17:04 10/05/24 18:55 10/05/24 18:15 Temperature 98.0 F Pulse Rate 68 111 H Respiratory Rate 16 20 Blood Pressure 143/81 H 175/72 H Pulse Oximetry 95 100 Oxygen Delivery Room Air Fraction of Inspired Oxygen 10/05/24 21:10 10/06/24 06:00 10/06/24 08:52 Temperature 99.3 F 98.4 F Pulse Rate 95 72 Respiratory Rate 16 16 Blood Pressure 152/86 H 158/88 H Pulse Oximetry 95 97 94 Oxygen Delivery Room Air Fraction of Inspired Oxygen 21 Exam Const: General: no acute distress and uncomfortable (Due to pain) Nutritional Appearance: overweight Orientation/consciousness: patient oriented x3 HENMT: Head: normocephalic and atraumatic Ears: hearing grossly normal bilaterally Mouth: Yes moist mucous membranes Eyes: General: appearance normal, both eyes and all related structures (Other than scleral icteric) Pupils: Equal, round and reactive pupils present Neck: Neck: normal visual inspection and full ROM Resp: Effort & Inspection: no respiratory distress Auscultation: clear to auscultation bilaterally Cardio: Rate: regular rate Rhythm: regular rhythm Heart sounds: S1 normal heart sound present and S2 normal heart sound present Peripheral pulses: Peripheral pulses 2+ throughout GI: Inspection: non-distended and no visible herniation GI Palp: Yes Soft to palpation, Yes Tenderness to palpation present (GI) (Right upper quadrant, + Stuart sign), Yes Guarding due to palpation present (GI) (Right upper quadrant) and No Rebound tenderness present Percussion: Yes normal to percussion Auscultation: normal bowel sounds Skin: General skin exam: jaundice Neuro: General: moves all extremities and no focal motor deficits Speech: normal speech Motor exam (neuro): 5/5 motor strength present throughout Extrem: General: normal to inspection and no edema Psych: Mental Status: mental status grossly normal Attitude: cooperative Insight: Good insight present (Psych) Judgement: Good judgement present (Psych) Results Labs 10/06/24 06:54 10/06/24 06:54 Labs: Abnormal lab results 10/05/24 10/05/24 10/06/24 Range/Units 13:20 20:35 06:54 WBC 14.5 H 12.4 H (4.5-10.0) K/mm3 RBC 4.57 L 4.24 L (4.6-6.20) M/mm3 Hgb 13.9 L 12.8 L (14.0-18.0) g/dL Hct 41.2 L 38.0 L (42.0-52.0) % MPV 11.7 H 11.5 H (7.4-10.4) fl Immature Gran % (Auto) 1.1 H (0-0.5) % Neut % (Auto) 90.2 H (45.5-73.1) % Lymph % (Auto) 3.2 L (18.3-44.2) % Lymph # (Auto) 0.47 L (0.9-3.2) K/mm3 [place] # (Auto) 0.7 H (0.1-0.6) K/mm3 Abs Immat Gran (auto) 0.16 H (0.00-0.031) K/mm3 Absolute Neuts (auto) 13.1 H (1.3-6.7) K/mm3 PT 16.3 H (11.1-14.7) Seconds Sodium 134 L 134 L (137-145) mmol/L Anion Gap 13 H (4-12) mmol/L Glucose 152 H 140 H (65-110) mg/dL Hemoglobin A1c 5.8 H (<5.7) % Magnesium 1.4 L (1.6-2.3) mg/dL Total Bilirubin 8.4 H 6.6 H (0.2-1.3) mg/dL AST 453 H 170 H (17-59) U/L ALT 502 H 356 H (6-50) U/L Alkaline Phosphatase 154 H 135 H (38-126) U/L Urine Protein 2+ H (Negative) mg/dL Urine Ketones Trace H (Negative) mg/dL Urine Nitrate Positive H (Negative) Urine Bilirubin 3+ H (Negative) Leukocyte Esterase Rfl 1+ H (Negative) PEDRO/UL Diabetes panel 10/05/24 10/06/24 Range/Units 13:20 06:54 Sodium 134 L 134 L (137-145) mmol/L Potassium 3.6 3.5 (3.4-5.0) mmol/L Chloride 99 101 (98-107) mmol/L Carbon Dioxide 22 23 (22-30) mmol/L BUN 10 10 (9-20) mg/dL Creatinine 0.80 0.70 (0.7-1.3) mg/dL Glucose 152 H 140 H (65-110) mg/dL Hemoglobin A1c 5.8 H (<5.7) % Calcium 9.3 8.9 (8.4-10.2) mg/dL AST 453 H 170 H (17-59) U/L ALT 502 H 356 H (6-50) U/L Alkaline Phosphatase 154 H 135 H (38-126) U/L Total Protein 8.0 7.0 (6.3-8.2) g/dL Albumin 4.5 4.0 (3.5-5.1) g/dL Calcium panel 10/05/24 10/06/24 Range/Units 13:20 06:54 Calcium 9.3 8.9 (8.4-10.2) mg/dL Albumin 4.5 4.0 (3.5-5.1) g/dL Pituitary panel 10/05/24 10/06/24 Range/Units 13:20 06:54 Sodium 134 L 134 L (137-145) mmol/L Potassium 3.6 3.5 (3.4-5.0) mmol/L Chloride 99 101 (98-107) mmol/L Carbon Dioxide 22 23 (22-30) mmol/L BUN 10 10 (9-20) mg/dL Creatinine 0.80 0.70 (0.7-1.3) mg/dL Glucose 152 H 140 H (65-110) mg/dL Calcium 9.3 8.9 (8.4-10.2) mg/dL Adrenal panel 10/05/24 10/06/24 Range/Units 13:20 06:54 Sodium 134 L 134 L (137-145) mmol/L Potassium 3.6 3.5 (3.4-5.0) mmol/L Chloride 99 101 (98-107) mmol/L Carbon Dioxide 22 23 (22-30) mmol/L BUN 10 10 (9-20) mg/dL Creatinine 0.80 0.70 (0.7-1.3) mg/dL Glucose 152 H 140 H (65-110) mg/dL Calcium 9.3 8.9 (8.4-10.2) mg/dL Total Bilirubin 8.4 H 6.6 H (0.2-1.3) mg/dL AST 453 H 170 H (17-59) U/L ALT 502 H 356 H (6-50) U/L Alkaline Phosphatase 154 H 135 H (38-126) U/L Total Protein 8.0 7.0 (6.3-8.2) g/dL Albumin 4.5 4.0 (3.5-5.1) g/dL All other labs normal. Imaging Additional studies: ITS Impressions Abdomen/Pelvis CT 10/05/24 15:11 IMPRESSION: Acute cholecystitis, with prominent pericholecystic fat stranding/inflammation since yesterday Diverticulosis of the left colon; no evidence of diverticulitis Normal appendix Subtle focal diminished attenuation in the lower right hepatic lobe, possibly focal fatty infiltration. MRI has been recommended differentiate benign from malignant process. Abdomen Ultrasound 10/05/24 16:51 IMPRESSION: Gallbladder distention and wall thickening; acute cholecystitis is suspected. No definite gallstones are noted. Consider occult gallstone or acalculous cholecystitis. Focal hyperechoic area right hepatic lobe corresponding to CT finding, possibly focal fatty infiltration or hemangioma MRCP 10/06/24 11:45 IMPRESSION: 1. Choledocholithiasis including a 10 x 6 mm stone in the distal aspect of the borderline dilated common bile duct and with mild intrahepatic biliary ductal dilation. 2. There are additional low signal intensity gallstones in the cystic duct and inflammatory stranding surrounding the gallbladder consistent with acute cholecystitis. 3. 2.1 cm hemangioma in the right hepatic lobe which corresponds to the region of concern on prior CT.
--- NOTE | 2024-10-06 12:49 | WPDGICN ---
Assessment and Plan Assessment and plan (1) Choledocholithiasis with obstruction: Qualifiers: Cholecystitis acuity: acute Cholecystitis presence: with cholecystitis Qualified Code(s): K80.43 - Calculus of bile duct with acute cholecystitis with obstruction <Adrianna Logan, [facility] - Last Filed: 10/06/24 13:16> Code(s): K80.51 - Calculus of bile duct without cholangitis or cholecystitis with obstruction <Adrianna Logan, [facility] - Last Filed: 10/06/24 13:16> Status: Acute <Adrianna Logan, [facility] - Last Filed: 10/06/24 13:16> (2) Abdominal pain: Qualifiers: Abdominal location: generalized Qualified Code(s): R10.84 - Generalized abdominal pain <Adrianna Logan, [facility] - Last Filed: 10/06/24 13:16> Code(s): R10.9 - Unspecified abdominal pain <Adrianna Logan, [facility] - Last Filed: 10/06/24 13:16> Status: Acute <Adrianna Logan, [facility] - Last Filed: 10/06/24 13:16> (3) Acute cholecystitis: Code(s): K81.0 - Acute cholecystitis <Adrianna Logan, [facility] - Last Filed: 10/06/24 13:16> Status: Acute <Adrianna Logan, [facility] - Last Filed: 10/06/24 13:16> (4) Elevated LFTs: Code(s): R79.89 - Other specified abnormal findings of blood chemistry <Adrianna Logan, [facility] - Last Filed: 10/06/24 13:16> Status: Acute <Adrianna Logan, [facility] - Last Filed: 10/06/24 13:16> (5) ETOH abuse: Code(s): F10.10 - Alcohol abuse, uncomplicated <Adrianna Logan, [facility] - Last Filed: 10/06/24 13:16> Status: Acute <Adrianna Logan, [facility] - Last Filed: 10/06/24 13:16> (6) Lesion of liver: Code(s): K76.9 - Liver disease, unspecified <Adrianna Logan APRN - Last Filed: 10/06/24 13:16> Status: Inactive <Adrianna Logan APRN - Last Filed: 10/06/24 13:16> Assessment and Plan: 1. Choledocholithiasis /Generalized abdominal pain/ abnormal imaging biliary/ cholecystitis/elevated LFTs/ETOH abuse: Last EGD > 10 years ago. MRCP showed choledocholithiasis including a 10 x 6 mm stone in the distal aspect of the borderline dilated common bile duct with mild intrahepatic biliary ductal dilation. There was additional low signal intensity gallstones in the cystic duct and inflammatory stranding surrounding the gallbladder consistent with acute cholecystitis. Ultrasound performed yesterday showed distended gallbladder and gallbladder wall thickening measuring up to 4 mm but no apparent stones were noted at that time. LFTs have been trending down but still significantly elevated with total bilirubin 8.4-->6.6, AST 453-->170, ALT 502-->356 and Alk Phos 154-->135. Bilirubin and Alk Phos were normal on 10/04/2024. Lipase normal at 39, albumin 4.0, INR 1.3, and Hepatitis panel negative. Patient with a history of heavy alcohol use stating that he used to drink a 12 pack of beer and a 5th of whiskey daily but now has cut down to 2-3 beers in a few shots of whiskey . Last BM today was isabella colored. Patient on Zosyn currently ERCP today surgery on case, further recommendations per surgery regarding possible cholecystectomy inpatient versus outpatient keep patient NPO Continue supportive care with pain management, IV fluids, antiemetics Further recommendations to follow endoscopy 2. Hepatic lesion: MRCP showed 2.1 cm hemangioma in the right hepatic lobe. monitor outpatient Thank you very much for allowing me to share in the care of this very nice patient. This report may have been done utilizing a voice recognition system. Attempts have been made to correct errors. However, there may be uncorrected grammatical, spelling, and recognition errors present. <Adrianna Logan APRN - Last Filed: 10/06/24 13:16> GI Consult Note Consult date/time: 10/06/24 12:49 <Adrianna Logan APRN - Last Filed: 10/06/24 13:16> Reason for consult: Choledocholithiasis <Adrianna Logan APRN - Last Filed: 10/06/24 13:16> Choledocholithiasis I have reviewed our nurse practitioner's note, examined the patient and pertinent laboratory data. We have discussed the plan extensively and agreed with was stated in the note. The patient describes brief episodes of right upper quadrant pain for several months, but never seeked medical attention since the episodes were self-limited. The patient is currently having moderate abdominal pain and has documented cholelithiasis and choledocholithiasis as per imaging studies. he has a clear Stuart sign on physical examination. He is receiving appropriate antibiotic coverage. I discussed the management with the patient, including ERCP, sphincterotomy and the possible potential outcomes including complications. Will schedule for tomorrow Afternoon. <Dwain Anthony MD - Last Filed: 10/06/24 17:09> HPI: This is a pleasant 43-year-old male with a past medical surgical history of HLD and alcohol abuse. He presented to the ER room 10/05/2024 with complaints of abdominal pain. GI consulted for choledocholithiasis. He reports pain started last week in the upper right belly. He describes it as sharp and severe. Eating makes the pain worse. He reports nausea and vomiting, which has improved slightly since admission. He denies odynophagia and dysphagia. Prior to this pain starting, his appetite was good. He denies any unexplained weight loss. He typically has 2-3 formed non urgent bowel movements daily. He reports his last bowel movement was yesterday and her states that the stool was isabella colored. He denies any blood in the stool or black stools. He takes Aleve as needed for pain but not very often. He denies aspirin or blood thinner use. He reports an EGD greater than 10 years ago but has never had a colonoscopy. He still has his gallbladder and appendix. He reports drinking 2-3 beers and a few shots of whiskey daily, down from 12 beers and 1/5 of whiskey daily, as he is trying to quit. He reports smoking and marijuana use. He denies any family history of GI cancers. ENDOSCOPY HISTORY: EGD: COLONOSCOPY: LABS AND STOOL STUDIES: LABS 10/06/2024 Showed sodium 134, potassium 3.5, BUN 10, creatinine 0.70, GFR > 60. WBC is 12, HGB 13, HCT 38, MCV 90, platelets 174. Total bilirubin 6.6, AST 170, ALT 356, alkaline phosphatase 135, albumin 4.0. Calcium 8.9, magnesium 1.7, lipase 39. Labs 10/05/2024: Total bilirubin 8.4, AST 453, ALT IMAGING: MRCP 10/06/2024 IMPRESSION: 1. Choledocholithiasis including a 10 x 6 mm stone in the distal aspect of the borderline dilated common bile duct and with mild intrahepatic biliary ductal dilation. 2. There are additional low signal intensity gallstones in the cystic duct and inflammatory stranding surrounding the gallbladder consistent with acute cholecystitis. 3. 2.1 cm hemangioma in the right hepatic lobe which corresponds to the region of concern on prior CT. Abdominal ultrasound 10/05/2024 FINDINGS: There is a focal approximately 2.4 x 1.9 x 1.7 cm area of hyper echogenicity of the right hepatic lobe, which may be due to focal fatty infiltration or hemangioma. No other hepatic space-occupying mass lesion is evident. Normal hepatopedal portal venous flow direction. No pancreatic mass lesion is noted. The gallbladder is distended. There is gallbladder wall thickening, measuring up to 4 mm. No apparent gallstones is noted. IMPRESSION: Gallbladder distention and wall thickening; acute cholecystitis is suspected. No definite gallstones are noted. Consider occult gallstone or acalculous cholecystitis. CT abd/pelvis w/contrast 10/05/2024 IMPRESSION: Acute cholecystitis, with prominent pericholecystic fat stranding/inflammation since yesterday Diverticulosis of the left colon; no evidence of diverticulitis Normal appendix Subtle focal diminished attenuation in the lower right hepatic lobe, possibly focal fatty infiltration. MRI has been recommended differentiate benign from malignant process. CT abd/pelvis w/contrast 10/04/2024 IMPRESSION: 1. 3 mm nonobstructing right renal stone. 2. Indeterminate 2 cm ill-defined hypodense lesion in the right hepatic lobe which could be either benign or malignant. Recommend further evaluation with multiphase pre and postcontrast MRI. <Adriannanavi Logan APRN - Last Filed: 10/06/24 13:16> Review of Systems Constitutional: Constitutional: Reports as per HPI and Reports fatigue <Adrianna Logan APRN - Last Filed: 10/06/24 13:16> ENT: Reports as per HPI <Adrianna Logan [employer] - Last Filed: 10/06/24 13:16> Cardiovascular: Cardiovascular: Reports as per HPI, Denies chest pain, Denies leg edema and Denies dyspnea <Adriannanavi Logan [employer] - Last Filed: 10/06/24 13:16> Respiratory: Respiratory: Denies cough and Denies dyspnea <Adriannanavi Logan [employer] - Last Filed: 10/06/24 13:16> Gastrointestinal: Gastrointestinal: Reports as per HPI <Adrianna Logan APRN - Last Filed: 10/06/24 13:16> Genitourinary: Genitourinary: Reports no additional male genitourinary complaints <Adrianna Logan APRN - Last Filed: 10/06/24 13:16> Musculoskeletal: Musculoskeletal: Reports as per HPI <Adrianna Logan APRN - Last Filed: 10/06/24 13:16> Integumentary/Breasts: Skin/Breast: Reports as per HPI <Adrianna Logan APRN - Last Filed: 10/06/24 13:16> Psychiatric: Psychiatric: Reports as per HPI <Adrianna Logan APRN - Last Filed: 10/06/24 13:16> Endocrine: Endocrine: Reports no additional endocrine complaints <Adrianna Logan APRN - Last Filed: 10/06/24 13:16> Hematologic/Lymphatic: Hematologic/Lymphatic: Reports no additional hematologic/lymphatic complaints <Adrianna Logan APRN - Last Filed: 10/06/24 13:16> PMFSH Past Medical History Medical History: Medical History Daily consumption of alcohol Dyslipidemia GERD (gastroesophageal reflux disease) <Adrianna Logan APRN - Last Filed: 10/06/24 13:16> Surgical History Surgical History: Surgical History No history of previous surgery <Adrianna Logan APRN - Last Filed: 10/06/24 13:16> Family History Family History: Family History Other Family history non-contributory <Adrianna Logan APRN - Last Filed: 10/06/24 13:16> Social History Social History: Social History Social History: Surrogate medical decision maker: sheela Rosario. Code status: Full code. Years smoked: 25 Smoking status: Current every day smoker Tobacco type: e-cigarettes/vaping Second hand tobacco smoke exposure: No Alcohol intake: current Drinks per week: 4 Alcohol use details: 2 to 3 beers a night with a few shots of whiskey Substance use: current Substance use type: marijuana Last use: 10/05/24 Do You Feel Safe in your Home?: Yes Lack of Transportation: No Lack of Food: Never True Current Housing: I Have Housing Concerned About Future Housing: No Difficulty Paying Gas/Electric Bills: No Difficulty Paying for Meds: No Currently Unemployed: No Education: High School Diploma/GED Difficulty w/ Childcare or Family Care: No Spiritual care concerns: No <Adrianna Logan APRN - Last Filed: 10/06/24 13:16> Meds Home Medications and Allergies Home medications: Home Medications Medication Instructions Recorded Confirmed Type atorvastatin 80 mg tablet 80 mg PO DAILY 10/04/24 10/05/24 History fenofibrate nanocrystallized 145 145 mg PO DAILY 10/04/24 10/05/24 History mg tablet hydrocodone 5 mg-acetaminophen 325 1 tablet PO Q8H PRN pain #10 tabs 10/04/24 10/05/24 Rx mg tablet omeprazole 40 mg capsule,delayed 40 mg PO DAILY 10/04/24 10/05/24 History release <Adrianna Logan APRN - Last Filed: 10/06/24 13:16> Allergies/Adverse reactions: Allergies Allergy/AdvReac Type Severity Reaction Status Date / Time No Known Allergies Allergy Verified 10/04/24 06:11 <Adrianna Logan APRN - Last Filed: 10/06/24 13:16> Vital Signs Vital Signs - 24 hr 10/05/24 12:59 10/05/24 14:14 10/05/24 15:25 Temperature 97.8 F Pulse Rate 73 70 66 Respiratory Rate 17 16 16 Blood Pressure 168/98 H 158/100 H 156/82 H Pulse Oximetry 100 100 98 Oxygen Delivery Room Air Fraction of Inspired Oxygen 10/05/24 17:04 10/05/24 18:55 10/05/24 18:15 Temperature 98.0 F Pulse Rate 68 111 H Respiratory Rate 16 20 Blood Pressure 143/81 H 175/72 H Pulse Oximetry 95 100 Oxygen Delivery Room Air Fraction of Inspired Oxygen 10/05/24 21:10 10/06/24 06:00 10/06/24 08:52 Temperature 99.3 F 98.4 F Pulse Rate 95 72 Respiratory Rate 16 16 Blood Pressure 152/86 H 158/88 H Pulse Oximetry 95 97 94 Oxygen Delivery Room Air Fraction of Inspired Oxygen 21 <Adrianna Logan APRN - Last Filed: 10/06/24 13:16> Exam Const: General: cooperative, healthy appearing, no acute distress, well developed, uncomfortable and overweight <Adrianna Logan APRN - Last Filed: 10/06/24 13:16> Orientation/consciousness: oriented to person, oriented to place, oriented to time and patient oriented x3 <Adrianna Logan APRN - Last Filed: 10/06/24 13:16> HENMT: Head: normal to inspection, normocephalic and atraumatic <Adrianna Logan APRN - Last Filed: 10/06/24 13:16> Mouth: Yes Normal oral and palatal mucosa present and Yes moist mucous membranes <Adrianna Logan APRN - Last Filed: 10/06/24 13:16> Eyes: General: appearance normal, both eyes and all related structures <Adrianna Logan APRN - Last Filed: 10/06/24 13:16> Conjunctivae: conjunctivae normal <Adrianna Logan [facility] Last Filed: 10/06/24 13:16> Sclera: abnormal sclerae (scleral icterus) <Adrianna Logan [facility] Last Filed: 10/06/24 13:16> Pupils: Equal, round and reactive pupils present <Adrianna Logan [facility] Last Filed: 10/06/24 13:16> Neck: Neck: normal visual inspection <Adrianna Logan [facility] Last Filed: 10/06/24 13:16> Chest: Chest palpation & inspection: normal inspection of the chest <Adrianna Logan [facility] Last Filed: 10/06/24 13:16> Resp: Effort & Inspection: normal respiratory effort and able to speak in complete sentences <Adrianna Logan [facility] Last Filed: 10/06/24 13:16> Auscultation: clear to auscultation bilaterally <Adrianna Logan [facility] Last Filed: 10/06/24 13:16> Cardio: Jugular venous distension: no JVD <Adrianna Logan [facility] Last Filed: 10/06/24 13:16> Rate: regular rate <Adrianna Logan [facility] Last Filed: 10/06/24 13:16> Rhythm: regular rhythm <Adrianna Logan [facility] Last Filed: 10/06/24 13:16> Heart sounds: S1 normal heart sound present and S2 normal heart sound present <Adrianna Logan [facility] Last Filed: 10/06/24 13:16> GI: Inspection: normal to inspection <Adrianna Logan [facility] Last Filed: 10/06/24 13:16> GI Palp: Yes Soft to palpation, No Firmness to palpation present (GI) (generalized tenderness), Yes Tenderness to palpation present (GI), No Guarding due to palpation present (GI) and Yes No hepatosplenomegaly present <Adrianna Logan [facility] Last Filed: 10/06/24 13:16> Auscultation: normal bowel sounds <Adrianna Logan APRN - Last Filed: 10/06/24 13:16> Rectal Exam: deferred <Adrianna Logan APRN - Last Filed: 10/06/24 13:16> Skin: General skin exam: No normal color (jaundice) and no rashes or lesions noted <Adrianna Logan APRN - Last Filed: 10/06/24 13:16> Neuro: General: oriented to person, oriented to place, oriented to time and patient oriented x3 <Adrianna Logan APRN - Last Filed: 10/06/24 13:16> Cranial nerves: Yes Equal, round and reactive pupils present <Adrianna Logan APRN - Last Filed: 10/06/24 13:16> Speech: normal speech <Adrianna Logan APRN - Last Filed: 10/06/24 13:16> Extrem: General: normal to inspection and no clubbing, cyanosis or edema <Adrianna Logan APRN - Last Filed: 10/06/24 13:16> Psych: Appearance: grossly normal and well kempt <Adrianna Logan APRN - Last Filed: 10/06/24 13:16> Affect: normal affect <Adrianna Logan APRN - Last Filed: 10/06/24 13:16> Results Labs CBC & Chem 7: 10/06/24 06:54 10/06/24 06:54 <Adrianna Logan APRN - Last Filed: 10/06/24 13:16> Labs: Short CBC 10/05/24 10/06/24 Range/Units 13:20 06:54 WBC 14.5 H 12.4 H (4.5-10.0) K/mm3 Hgb 13.9 L 12.8 L (14.0-18.0) g/dL Hct 41.2 L 38.0 L (42.0-52.0) % Plt Count 186 174 (150-375) k/mm3 BMP 10/05/24 10/06/24 13:20 06:54 Sodium 134 L 134 L Potassium 3.6 3.5 Chloride 99 101 Carbon Dioxide 22 23 BUN 10 10 Creatinine 0.80 0.70 Glucose 152 H 140 H Calcium 9.3 8.9 Liver Function 10/05/24 10/06/24 Range/Units 13:20 06:54 Total Bilirubin 8.4 H 6.6 H (0.2-1.3) mg/dL AST 453 H 170 H (17-59) U/L ALT 502 H 356 H (6-50) U/L Alkaline Phosphatase 154 H 135 H (38-126) U/L Albumin 4.5 4.0 (3.5-5.1) g/dL Urine 10/05/24 Range/Units 13:20 Urine Color Dark yellow (Yellow) Urine Appearance Clear (Clear) Urine pH 7.5 (5.0-9.0) Ur Specific [place] 1.032 (1.001-1.035) Urine Protein 2+ H (Negative) mg/dL Urine Glucose (UA) Negative (Negative) mg/dL <Adrianna Logan, [employer] - Last Filed: 10/06/24 13:16>
[2024-10-06] MEDS: ATORVASTATIN 40 MG TABLET 80 MG PO (12:52)
[2024-10-06] MEDS: FENOFIBRATE NANOCRYSTALLIZED 145 MG TABLET PO (12:52)
[2024-10-06 14:00] VITALS: BP 158/91; PULSE 68; RESP 18; TEMP 36.6; O2SAT 96
[2024-10-06] MEDS: HYDROmorphone HCL INJ (*CRX) 1 MG/ML SYR 0.5 MG IV PUSH ×2 (16:30→22:17)
[2024-10-06 20:54] VITALS: BP 163/107; PULSE 68; RESP 12; TEMP 36.2; O2SAT 96
[2024-10-07] VITALS (15 sets, daily range): BP systolic 133–180; BP diastolic 88–100; PULSE 64–98; RESP 16–27; TEMP 36.1–36.7; O2SAT 94–100; BMI 39.8
[2024-10-07] MEDS: HYDROmorphone HCL INJ (*CRX) 1 MG/ML SYR IV PUSH ×3 (00:02→08:40)
[2024-10-07] MEDS: HYDROmorphone HCL INJ (*CRX) 1 MG/ML SYR 0.5 MG IV PUSH ×2 (02:15→05:50)
[2024-10-07] MEDS: PIPERACILLN/TAZ 3.375GM/NS50ML 3.375 GM/50 ML BAG IVPB ×4 (02:16→20:13)
[2024-10-07] MEDS: SODIUM CHLORIDE 0.9% IV 1,000 ML 100 ML IV CONT (03:41)
[2024-10-07] MEDS: ONDANSETRON INJ 4 MG/2 ML VIAL IV PUSH ×2 (05:52→15:16)
[2024-10-07 07:24] LABS: Hematocrit 36.5 % (42.0-52.0); Hemoglobin 12.6 g/dL (14.0-18.0); Mean Corpuscular HGB Conc 34.5 g/dl (32-36); Mean Corpuscular Hemoglobin 30.7 pg (26-34); Mean Platelet Volume 11.4 fl (7.4-10.4); Platelet Count Result 211 k/mm3 (150-375); Red Cell Distribution Width 13.4 % (11.5-14.5); White Blood Count 10.5 K/mm3 (4.5-10.0)
[2024-10-07 07:34] LABS: Alanine Aminotransferase 240 U/L (6-50); Albumin Level 3.8 g/dL (3.5-5.1); Alkaline Phosphatase 158 U/L (38-126); Anion Gap 7 mmol/L (4-12); Aspartate Amino Transferase 83 U/L (17-59); Bilirubin,Total 5.7 mg/dL (0.2-1.3); Blood Urea Nitrogen 11 mg/dL (9-20); Calcium 8.8 mg/dL (8.4-10.2); Carbon Dioxide 25 mmol/L (22-30); Chloride 101 mmol/L (98-107); Estimated CRCL calculation 156 ml/min; Estimated Glomerular Filt Rate > 60; Glucose 121 mg/dL (65-110); Potassium 3.4 mmol/L (3.4-5.0); Sodium 133 mmol/L (137-145)
[2024-10-07] MEDS: THIAMINE HCL 200 MG/2 ML VIAL 100 MG IV PUSH (08:44)
[2024-10-07] MEDS: PANTOPRAZOLE SODIUM IV 40 MG VIAL IV PUSH (08:44)
--- NOTE | 2024-10-07 10:53 | P.PNGS_ITS ---
Progress Note: A&P Assessment and Plan (1) Acute cholecystitis: Code(s): K81.0 - Acute cholecystitis Status: Acute Assessment and Plan: * Continue IV antibiotics * ERCP scheduled today. Will eventually need laparoscopic cholecystectomy, will repeat labs in the morning and follow to decide on timing of surgery (2) Sepsis: Code(s): A41.9 - Sepsis, unspecified organism Status: Acute Assessment and Plan: * Secondary to acute cholecystitis vs ascending cholangitis with choledocholithiasis. * Continue IV Zosyn. Blood cultures on 10/05 growing Klebsiella pneumoniae (3) Choledocholithiasis with obstruction: Qualifiers: Cholecystitis presence: with cholecystitis Cholecystitis acuity: acute Qualified Code(s): K80.43 - Calculus of bile duct with acute cholecystitis with obstruction Code(s): K80.51 - Calculus of bile duct without cholangitis or cholecystitis with ob struction Status: Acute Assessment and Plan: * GI consulted and planning ERCP today (4) Transaminitis: Code(s): R74.01 - Elevation of levels of liver transaminase levels Status: Acute Assessment and Plan: * Due to choledocholithiasis and cholecystitis. ERCP scheduled today * Repeat labs tomorrow (5) Daily consumption of alcohol: Code(s): Z78.9 - Other specified health status Status: Acute Plan I have discussed the patient's case and plan of care with Dr. Manrique. Subjective Subjective Date/Time Seen: 10/07/24 10:53 Patient reports: no new complaints, still having pain, flatus and afebrile Interval history: Still having RUQ Pain, unchanged and constant. No other complaints at this time. T bili down to 5.7 today. Scheduled for ERCP today. Exam Const: General: uncomfortable (Due to pain) Orientation/consciousness: patient oriented x3 GI: Inspection: non-distended GI Palp: Yes Soft to palpation, Yes Tenderness to palpation present (GI) (RUQ), No Guarding due to palpation present (GI) and No Rebound tenderness present Auscultation: normal bowel sounds Skin: General skin exam: jaundice Objective Data Vital Signs Vital Signs: Vital Signs - 24 hr 10/06/24 14:00 10/06/24 20:00 10/06/24 20:54 Temperature 97.9 F 97.1 F L Pulse Rate 68 68 Respiratory Rate 18 12 Blood Pressure 158/91 H 163/107 H Pulse Oximetry 96 96 Oxygen Delivery Room Air 10/07/24 06:00 10/07/24 06:33 Temperature 97.9 F Pulse Rate 74 Respiratory Rate 16 Blood Pressure 174/88 H 156/91 H Pulse Oximetry 95 Oxygen Delivery Intake/Output Intake/Output: Intake & Output 10/04/24 10/05/24 10/06/24 10/07/24 23:59 23:59 23:59 23:59 Intake Total 1250 2071.7 1100 Balance 1250 2071.7 1100 Meds/Results Medications: Active Medications Generic Name Dose Route Start Last Admin Trade Name Freq PRN Reason Stop Dose Admin Atorvastatin Calcium 80 mg 10/06/24 09:00 10/07/24 08:05 Atorvastatin 40 Mg Tablet PO Not Given DAILY ODILIA Fenofibrate 145 mg 10/06/24 09:00 10/07/24 08:05 Fenofibrate Nanocrystallized 145 Mg Tablet PO Not Given DAILY ODILIA Piperacillin/Tazobactam/Dextrose 3.375 gm in 50 mls @ 100 mls/hr 10/05/24 21:00 10/07/24 09:15 Zosyn 3.375 Gm/Ns 50 Ml IVPB Infused Q6H ODILIA Infusion Sodium Chloride 1,000 mls @ 100 mls/hr 10/05/24 19:55 10/07/24 03:41 Normal Saline Iv IV CONT 100 mls/hr .Q10H ODILIA Administration Lorazepam 2 mg 10/05/24 19:50 Lorazepam Inj (*Crx) 2 Mg/Ml Vial IV PUSH Q2H PRN CIWA 8-15 Lorazepam 4 mg 10/05/24 19:50 Lorazepam Inj (*Crx) 2 Mg/Ml Vial IV PUSH Q2H PRN CIWA > 15 Morphine Sulfate 4 mg 10/07/24 09:03 Morphine Sulfate (*Crx) 4 Mg/Ml Inj IV PUSH Q2H PRN Pain Rated 7-10 Morphine Sulfate 2 mg 10/07/24 09:03 Morphine Sulfate (*Crx) 2 Mg/Ml Inj IV PUSH Q2H PRN Pain Rated 4-6 Ondansetron HCl 4 mg 10/05/24 19:36 10/07/24 05:52 Ondansetron Inj 4 Mg/2 Ml Vial IV PUSH 4 mg Q6H PRN Administration Nausea And Vomiting Pantoprazole Sodium 40 mg 10/06/24 09:00 10/07/24 08:44 Pantoprazole Sodium Iv 40 Mg Vial IV PUSH 40 mg QAM ODILIA Administration Thiamine HCl 100 mg 10/06/24 09:00 10/07/24 08:44 Thiamine Hcl 200 Mg/2 Ml Vial IV PUSH 100 mg QAM ODILIA Administration Radiology Results: ITS Impressions Abdomen/Pelvis CT 10/05/24 15:11 IMPRESSION: Acute cholecystitis, with prominent pericholecystic fat stranding/inflammation since yesterday Diverticulosis of the left colon; no evidence of diverticulitis Normal appendix Subtle focal diminished attenuation in the lower right hepatic lobe, possibly focal fatty infiltration. MRI has been recommended differentiate benign from malignant process. Abdomen Ultrasound 10/05/24 16:51 IMPRESSION: Gallbladder distention and wall thickening; acute cholecystitis is suspected. No definite gallstones are noted. Consider occult gallstone or acalculous cholecystitis. Focal hyperechoic area right hepatic lobe corresponding to CT finding, possibly focal fatty infiltration or hemangioma MRCP 10/06/24 11:45 IMPRESSION: 1. Choledocholithiasis including a 10 x 6 mm stone in the distal aspect of the borderline dilated common bile duct and with mild intrahepatic biliary ductal dilation. 2. There are additional low signal intensity gallstones in the cystic duct and inflammatory stranding surrounding the gallbladder consistent with acute cholecystitis. 3. 2.1 cm hemangioma in the right hepatic lobe which corresponds to the region of concern on prior CT. Labs Labs: Laboratory Results - last 24 hr 10/07/24 07:06 WBC 10.5 H RBC 4.10 L Hgb 12.6 L Hct 36.5 L MCV 89.0 MCH 30.7 MCHC 34.5 RDW 13.4 Plt Count 211 MPV 11.4 H Sodium 133 L Potassium 3.4 Chloride 101 Carbon Dioxide 25 Anion Gap 7 BUN 11 Creatinine 0.70 Estim Creat Clear Calc 156 Estimated GFR > 60 Glucose 121 H Calcium 8.8 Total Bilirubin 5.7 H AST 83 H ALT 240 H Alkaline Phosphatase 158 H Total Protein 7.0 Albumin 3.8
--- NOTE | 2024-10-07 10:57 | PC.NURSE ---
To GI Lab per [ ], IV [ ]. Report given to [CAROL].
[2024-10-07] MEDS: LACTATED RINGERS 1,000 ML 999 ML IV CONT (11:21)
--- NOTE | 2024-10-07 11:21 | WPDANESEPPF ---
Anes - Initial Pre Proc Eval Procedure: Operation Date: 10/07/24 11:30 Proposed Procedures p Endoscopic Retro Cholangiopancreatogram - Dwain Anthony MD Date/Time: 10/07/24 11:21 Surgeon: Zainab Curtis APRN Pre Op Diagnosis: Acute Cholecystitis Patient Data Age: 43 Gender: M Height: 1.78 m Weight: 126 kg Last Vital Signs Temp 97.3 F L 10/07/24 11:04 Pulse 73 10/07/24 11:04 Resp 18 10/07/24 11:04 BP 149/88 H 10/07/24 11:04 Pulse Ox 98 10/07/24 11:04 O2 Del Method Room Air 10/07/24 11:04 FiO2 21 10/06/24 08:52 Allergies Allergy/AdvReac Type Severity Reaction Status Date / Time No Known Allergies Allergy Verified 10/07/24 11:11 Home Medications Medication Instructions Recorded Confirmed Type atorvastatin 80 mg tablet 80 mg PO DAILY 10/04/24 10/07/24 History fenofibrate nanocrystallized 145 145 mg PO DAILY 10/04/24 10/07/24 History mg tablet hydrocodone 5 mg-acetaminophen 325 1 tablet PO Q8H PRN pain #10 tabs 10/04/24 10/07/24 Rx mg tablet omeprazole 40 mg capsule,delayed 40 mg PO DAILY 10/04/24 10/07/24 History release Laboratory Tests 10/07/24 07:06 WBC 10.5 H K/mm3 (4.5-10.0) RBC 4.10 L M/mm3 (4.6-6.20) Hgb 12.6 L g/dL (14.0-18.0) Hct 36.5 L % (42.0-52.0) MCV 89.0 fl (80-100) MCH 30.7 pg (26-34) MCHC 34.5 g/dl (32-36) RDW 13.4 % (11.5-14.5) Plt Count 211 k/mm3 (150-375) MPV 11.4 H fl (7.4-10.4) Sodium 133 L mmol/L (137-145) Potassium 3.4 mmol/L (3.4-5.0) Chloride 101 mmol/L (98-107) Carbon Dioxide 25 mmol/L (22-30) Anion Gap 7 mmol/L (4-12) BUN 11 mg/dL (9-20) Creatinine 0.70 mg/dL (0.7-1.3) Estim Creat Clear Calc 156 ml/min Estimated GFR > 60 (59 - ) Glucose 121 H mg/dL (65-110) Calcium 8.8 mg/dL (8.4-10.2) Total Bilirubin 5.7 H mg/dL (0.2-1.3) AST 83 H U/L (17-59) ALT 240 H U/L (6-50) Alkaline Phosphatase 158 H U/L (38-126) Total Protein 7.0 g/dL (6.3-8.2) Albumin 3.8 g/dL (3.5-5.1) Patient hx anesthesia problems: none Family hx anesthesia problems: none Results Review: All pre-operative results and documents have been reviewed as part of the pre-operative evaluation. [facility] Past Medical History Medical History Daily consumption of alcohol Dyslipidemia GERD (gastroesophageal reflux disease) Surgical History Surgical History No history of previous surgery Family History Family History Other Family history non-contributory Social History Social History Social History: Surrogate medical decision maker: sheela Rosario. Code status: Full code. Years smoked: 25 Smoking status: Current every day smoker Tobacco type: e-cigarettes/vaping Second hand tobacco smoke exposure: No Alcohol intake: current Drinks per week: 4 Alcohol use details: 2 to 3 beers a night with a few shots of whiskey Substance use: current Substance use type: marijuana Last use: 10/05/24 Do You Feel Safe in your Home?: Yes Lack of Transportation: No Lack of Food: Never True Current Housing: I Have Housing Concerned About Future Housing: No Difficulty Paying Gas/Electric Bills: No Difficulty Paying for Meds: No Currently Unemployed: No Education: High School Diploma/GED Difficulty w/ Childcare or Family Care: No Spiritual care concerns: No Anes - Eval Final PreProcedure Day of Procedure 10/07/24 11:21 Patient weight: morbidly obese Heart: regular rate and rhythm Lungs: clear to auscultation Airway: Mallampati scale class III Neurological: alert and oriented Last oral intake: >/= 8 hours ASA classification: III Emergent: no Anesthetic plan: proceed Anesthesia type and monitoring: general ETT and standard monitoring Results Review: All pre-operative results and documents have been reviewed as part of the pre-operative evaluation. Informed Consent: The patient's anesthetic plan and its attendant risks and benefits were discussed with the patient/family/POA. Questions were solicited and answers provided to the satisfaction of the patient/family/POA.
[2024-10-07] MEDS: INDOMETHACIN 50 MG SUPP.RECT 100 MG RECTAL (11:23)
[2024-10-07] MEDS: LACTATED RINGERS 1,000 ML 150 ML IV CONT ×2 (11:24→12:55)
--- NOTE | 2024-10-07 11:50 | P.PNIM_ITS ---
Progress Note: A&P Assessment and Plan (1) Acute cholecystitis: Code(s): K81.0 - Acute cholecystitis Status: Acute Assessment and Plan: * abdomen/pelvis CT shows acute cholecystitis with prominent ne cholecystic fat stranding/ inflammation since yesterday, diverticulosis of the left colon no evidence of diverticulitis, subtle focal diminished attenuation in the lower right hepatic lobe possibly focal fatty infiltration. * Abdomen ultrasound shows gallbladder distention and wall thickening, acute cholecystitis is suspected, focal hyperechoic area in the right hepatic lobe * patient initially given Rocephin and Flagyl in the ED * transitioned antibiotic to Zosyn * continue IV fluids * continue NPO status * MRCP shown common bile duct stone as well as stones in the cystic duct with findings of acute cholecystitis * Plan for ERCP today * initial white blood cell count 14.5, total bili 8.4, AST 453, ALT 502, alk- phos 154 * today white blood cell count 10.5, total bili 5.7, AST 83, ALT 240, alk phos 158 * Blood cultures showing Klebsiella pneumoniae in both sets * Will obtain new blood cultures today (2) Transaminitis: Code(s): R74.01 - Elevation of levels of liver transaminase levels Status: Acute Assessment and Plan: secondary to acute cholecystitis * today white blood cell count 10.5, total bili 5.7, AST 83, ALT 240, alk phos 158 * see above plan of care (3) Hyperglycemia: Code(s): R73.9 - Hyperglycemia, unspecified Status: Acute Assessment and Plan: * blood sugars ranging 121-140 * hemoglobin A1c 5.8 * continue to trend (4) Dyslipidemia: Code(s): E78.5 - Hyperlipidemia, unspecified Status: Acute Assessment and Plan: * continue atorvastatin and fenofibrate (5) Daily consumption of alcohol: Code(s): Z78.9 - Other specified health status Status: Acute Assessment and Plan: * patient admits to drinking 2-3 beers a night with few shots of whiskey * No signs or symptoms of withdrawal Time Spent With Patient Time with patient: 25 - 35 minutes Subjective Date/time seen: 10/07/24 11:50 Interval history: Interval history: This is a 43-year-old male who present wanted to the hospital on 10/05/2024 with complaints of abdominal pain. Abdomen/ pelvis CT showed 3 mm nonobstructing right renal stone, indeterminate 2 cm ill defined hypodense lesion in the right hepatic lobe which could be either benign or malignant. CT of abdomen pelvis was repeated on 10/05/2024 which showed acute cholecystitis with prominent pericholecystic fat stranding/ inflammation since yesterday diverticulosis of the left colon no evidence of diverticulitis, normal appendix, subtle focal diminished attenuation in the lower right hepatic lobe possibly focal fat infiltration. abdomen ultrasound shown gallbladder distention and wall thickening as seen with acute cholecystitis, node definite gallstones are noted, focal hyperechoic area in the right hepatic lobe possibly focal fatty infiltration or hemangioma. Initial labs showed a white blood cell count of 14.5, RBC 4.57, hemoglobin 13.9, INR 1.3, sodium 134, AST 453, ALT 504, alk-phos 154, total bili 8.4, magnesium 1.4. UA was obtained and showed 2+ urine protein, trace urine ketone, positive nitrate, 3+ urine bili, 1+ leukocytes. Hepatitis panel negative. MRCP showing obstructing common bile duct stone as well as stones in the cystic duct with findings of acute cholecystitis. Subjective: Patient reports nausea and vomiting this morning. Awaiting ERCP. Labs reviewed. Review of Systems Review of Systems: 12 systems were reviewed and are negativ e except for as per HPI. All systems reviewed & are unremarkable except as noted in HPI and below Constitutional: Constitutional: Reports as per HPI and Reports no additional constitutional complaints Eyes: Eyes: Reports as per HPI and Reports no additional eye complaints ENT: Reports system reviewed and no additional complaints, except as documented and Reports as per HPI Cardiovascular: Cardiovascular: Reports as per HPI and Reports no additional cardiovascular complaints Respiratory: Respiratory: Reports as per HPI and Reports no additional respiratory complaints Gastrointestinal: Gastrointestinal: Reports as per HPI and Reports no additional gastrointestinal complaints Genitourinary: Genitourinary: Reports no additional male genitourinary complaints and Reports as per HPI Musculoskeletal: Musculoskeletal: Reports no additional musculoskeletal complaints and Reports as per HPI Integumentary/Breasts: Skin/Breast: Reports system reviewed and no additional complaints, except as docu and Reports as per HPI Neurologic: Reports system reviewed and no additional complaints, except as documented and Reports as per HPI Psychiatric: Psychiatric: Reports no additional psychiatric complaints and Reports as per HPI Exam Narrative: General: In no acute distress, well nourished Cardiac: Normal S1 and S2. RRR, No murmur, gallops or friction rubs, peripheral pulses intact. Respiratory: Lungs clear to auscultation, no adventitious lung sounds, currently on room air Gastrointestinal: soft, non-distended, tenderness noted epigastric radiating to back, normoactive bowel sounds. Nausea and vomiting this a.m. : voiding without difficulty. Neuro: Alert and oriented x4 Objective Data Vital Signs Vital Signs: Vital Signs - 24 hr 10/06/24 14:00 10/06/24 20:00 10/06/24 20:54 Temperature 97.9 F 97.1 F L Pulse Rate 68 68 Respiratory Rate 18 12 Blood Pressure 158/91 H 163/107 H Pulse Oximetry 96 96 Oxygen Delivery Room Air 10/07/24 06:00 10/07/24 06:33 10/07/24 11:04 Temperature 97.9 F 97.3 F L Pulse Rate 74 73 Respiratory Rate 16 18 Blood Pressure 174/88 H 156/91 H 149/88 H Pulse Oximetry 95 98 Oxygen Delivery Room Air Intake/Output Intake/Output: Intake & Output 10/04/24 10/05/24 10/06/24 10/07/24 23:59 23:59 23:59 23:59 Intake Total 1250 2071.7 1100 Balance 1250 2071.7 1100 Meds/Results Medications: Active Medications Generic Name Dose Route Start Last Admin Trade Name Freq PRN Reason Stop Dose Admin Atorvastatin Calcium 80 mg 10/06/24 09:00 10/07/24 08:05 Atorvastatin 40 Mg Tablet PO Not Given DAILY ODILIA Fenofibrate 145 mg 10/06/24 09:00 10/07/24 08:05 Fenofibrate Nanocrystallized 145 Mg Tablet PO Not Given DAILY ODILIA Piperacillin/Tazobactam/Dextrose 3.375 gm in 50 mls @ 100 mls/hr 10/05/24 21:00 10/07/24 09:15 Zosyn 3.375 Gm/Ns 50 Ml IVPB Infused Q6H ODILIA Infusion Sodium Chloride 1,000 mls @ 100 mls/hr 10/05/24 19:55 10/07/24 03:41 Normal Saline Iv IV CONT 100 mls/hr .Q10H ODILIA Administration Lactated Ringer's 1,000 mls @ 150 mls/hr 10/07/24 11:15 10/07/24 11:24 Lr - Lactated Ringers Iv IV CONT 150 mls/hr .Q6H40M ODILIA Administration Lactated Ringer's 1,000 mls @ 999 mls/hr 10/07/24 11:14 10/07/24 11:21 Lr - Lactated Ringers Iv IV CONT 10/07/24 12:14 999 mls/hr .Q1H1M STA Administration Lorazepam 2 mg 10/05/24 19:50 Lorazepam Inj (*Crx) 2 Mg/Ml Vial IV PUSH Q2H PRN CIWA 8-15 Lorazepam 4 mg 10/05/24 19:50 Lorazepam Inj (*Crx) 2 Mg/Ml Vial IV PUSH Q2H PRN CIWA > 15 Morphine Sulfate 4 mg 10/07/24 09:03 Morphine Sulfate (*Crx) 4 Mg/Ml Inj IV PUSH Q2H PRN Pain Rated 7-10 Morphine Sulfate 2 mg 10/07/24 09:03 Morphine Sulfate (*Crx) 2 Mg/Ml Inj IV PUSH Q2H PRN Pain Rated 4-6 Ondansetron HCl 4 mg 10/05/24 19:36 10/07/24 05:52 Ondansetron Inj 4 Mg/2 Ml Vial IV PUSH 4 mg Q6H PRN Administration Nausea And Vomiting Pantoprazole Sodium 40 mg 10/06/24 09:00 10/07/24 08:44 Pantoprazole Sodium Iv 40 Mg Vial IV PUSH 40 mg QAM ODILIA Administration Thiamine HCl 100 mg 10/06/24 09:00 10/07/24 08:44 Thiamine Hcl 200 Mg/2 Ml Vial IV PUSH 100 mg QAM ODILIA Administration Radiology Results: ITS Impressions Abdomen/Pelvis CT 10/05/24 15:11 IMPRESSION: Acute cholecystitis, with prominent pericholecystic fat stranding/inflammation since yesterday Diverticulosis of the left colon; no evidence of diverticulitis Normal appendix Subtle focal diminished attenuation in the lower right hepatic lobe, possibly focal fatty infiltration. MRI has been recommended differentiate benign from malignant process. Abdomen Ultrasound 10/05/24 16:51 IMPRESSION: Gallbladder distention and wall thickening; acute cholecystitis is suspected. No definite gallstones are noted. Consider occult gallstone or acalculous cholecystitis. Focal hyperechoic area right hepatic lobe corresponding to CT finding, possibly focal fatty infiltration or hemangioma MRCP 10/06/24 11:45 IMPRESSION: 1. Choledocholithiasis including a 10 x 6 mm stone in the distal aspect of the borderline dilated common bile duct and with mild intrahepatic biliary ductal dilation. 2. There are additional low signal intensity gallstones in the cystic duct and inflammatory stranding surrounding the gallbladder consistent with acute cholecystitis. 3. 2.1 cm hemangioma in the right hepatic lobe which corresponds to the region o f concern on prior CT. Labs Labs: Laboratory Results - last 24 hr 10/07/24 07:06 WBC 10.5 H RBC 4.10 L Hgb 12.6 L Hct 36.5 L MCV 89.0 MCH 30.7 MCHC 34.5 RDW 13.4 Plt Count 211 MPV 11.4 H Sodium 133 L Potassium 3.4 Chloride 101 Carbon Dioxide 25 Anion Gap 7 BUN 11 Creatinine 0.70 Estim Creat Clear Calc 156 Estimated GFR > 60 Glucose 121 H Calcium 8.8 Total Bilirubin 5.7 H AST 83 H ALT 240 H Alkaline Phosphatase 158 H Total Protein 7.0 Albumin 3.8 Quality VTE Prophylaxis VTE prophylaxis: mechanical ordered
--- NOTE | 2024-10-07 14:21 | PC.NURSE ---
Returned from GI Lab. Report received from [raad ].
--- NOTE | 2024-10-07 15:03 | WPDGIPROGNO ---
Progress Note: A&P Assessment and Plan (1) Choledocholithiasis with obstruction: Qualifiers: Cholecystitis presence: with cholecystitis Cholecystitis acuity: acute Qualified Code(s): K80.43 - Calculus of bile duct with acute cholecystitis with obstruction Code(s): K80.51 - Calculus of bile duct without cholangitis or cholecystitis with obstruction Status: Acute Assessment and Plan: See ERCP note - patient can be scheduled for Lap benja when deemed appropriate by surgical team. (2) Acute cholecystitis: Code(s): K81.0 - Acute cholecystitis Status: Acute Subjective Date/time seen: 10/07/24 15:03 Objective Data Vital Signs Vital Signs: Vital Signs - 24 hr 10/06/24 20:00 10/06/24 20:54 10/07/24 06:00 Temperature 97.1 F L 97.9 F Pulse Rate 68 74 Respiratory Rate 12 16 Blood Pressure 163/107 H 174/88 H Pulse Oximetry 96 95 Oxygen Delivery Room Air 10/07/24 06:33 10/07/24 11:04 10/07/24 12:55 Temperature 97.3 F L Pulse Rate 73 98 Respiratory Rate 18 19 Blood Pressure 156/91 H 149/88 H 146/100 H Pulse Oximetry 98 98 Oxygen Delivery Room Air Room Air 10/07/24 13:05 10/07/24 13:15 10/07/24 13:25 Temperature Pulse Rate 82 84 79 Respiratory Rate 25 H 27 H 24 H Blood Pressure 140/88 136/93 H 133/92 H Pulse Oximetry 100 100 97 Oxygen Delivery Room Air Room Air Room Air 10/07/24 13:35 10/07/24 13:45 10/07/24 13:55 Temperature Pulse Rate 77 79 77 Respiratory Rate 23 H 23 H 22 H Blood Pressure 140/91 H 133/93 H 140/92 H Pulse Oximetry 94 94 94 Oxygen Delivery Room Air Room Air Room Air Intake/Output Intake/Output: Intake & Output 10/04/24 10/05/24 10/06/24 10/07/24 23:59 23:59 23:59 23:59 Intake Total 1250 2071.7 1200 Balance 1250 2071.7 1200 Meds/Results Medications: Active Medications Generic Name Dose Route Start Last Admin Trade Name Freq PRN Reason Stop Dose Admin Atorvastatin Calcium 80 mg 10/06/24 09:00 10/07/24 08:05 Atorvastatin 40 Mg Tablet PO Not Given DAILY ODILIA Fenofibrate 145 mg 10/06/24 09:00 10/07/24 08:05 Fenofibrate Nanocrystallized 145 Mg Tablet PO Not Given DAILY ODILIA Piperacillin/Tazobactam/Dextrose 3.375 gm in 50 mls @ 100 mls/hr 10/05/24 21:00 10/07/24 14:35 Zosyn 3.375 Gm/Ns 50 Ml IVPB 100 mls/hr Q6H ODILIA Administration Lorazepam 2 mg 10/05/24 19:50 Lorazepam Inj (*Crx) 2 Mg/Ml Vial IV PUSH Q2H PRN CIWA 8-15 Lorazepam 4 mg 10/05/24 19:50 Lorazepam Inj (*Crx) 2 Mg/Ml Vial IV PUSH Q2H PRN CIWA > 15 Ondansetron HCl 4 mg 10/05/24 19:36 10/07/24 05:52 Ondansetron Inj 4 Mg/2 Ml Vial IV PUSH 4 mg Q6H PRN Administration Nausea And Vomiting Thiamine HCl 100 mg 10/06/24 09:00 10/07/24 08:44 Thiamine Hcl 200 Mg/2 Ml Vial IV PUSH 100 mg QAM ODILIA Administration Radiology Results: ITS Impressions Abdomen/Pelvis CT 10/05/24 15:11 IMPRESSION: Acute cholecystitis, with prominent pericholecystic fat stranding/inflammation since yesterday Diverticulosis of the left colon; no evidence of diverticulitis Normal appendix Subtle focal diminished attenuation in the lower right hepatic lobe, possibly focal fatty infiltration. MRI has been recommended differentiate benign from malignant process. Abdomen Ultrasound 10/05/24 16:51 IMPRESSION: Gallbladder distention and wall thickening; acute cholecystitis is suspected. No definite gallstones are noted. Consider occult gallstone or acalculous cholecystitis. Focal hyperechoic area right hepatic lobe corresponding to CT finding, possibly focal fatty infiltration or hemangioma MRCP 10/06/24 11:45 IMPRESSION: 1. Choledocholithiasis including a 10 x 6 mm stone in the distal aspect of the borderline dilated common bile duct and with mild intrahepatic biliary ductal dilation. 2. There are additional low signal intensity gallstones in the cystic duct and inflammatory stranding surrounding the gallbladder consistent with acute cholecystitis. 3. 2.1 cm hemangioma in the right hepatic lobe which corresponds to the region of concern on prior CT. Labs Labs: Laboratory Results - last 24 hr 10/07/24 07:06 WBC 10.5 H RBC 4.10 L Hgb 12.6 L Hct 36.5 L MCV 89.0 MCH 30.7 MCHC 34.5 RDW 13.4 Plt Count 211 MPV 11.4 H Sodium 133 L Potassium 3.4 Chloride 101 Carbon Dioxide 25 Anion Gap 7 BUN 11 Creatinine 0.70 Estim Creat Clear Calc 156 Estimated GFR > 60 Glucose 121 H Calcium 8.8 Total Bilirubin 5.7 H AST 83 H ALT 240 H Alkaline Phosphatase 158 H Total Protein 7.0 Albumin 3.8
[2024-10-07] MEDS: MORPHINE SULFATE (*CRX) 4 MG/ML INJ IV PUSH ×4 (15:15→20:49)
[2024-10-08] VITALS (15 sets, daily range): BP systolic 138–172; BP diastolic 82–102; PULSE 72–92; RESP 14–20; TEMP 36.3–37.1; O2SAT 93–100
[2024-10-08] MEDS: PIPERACILLN/TAZ 3.375GM/NS50ML 3.375 GM/50 ML BAG IVPB ×2 (02:06→08:51)
[2024-10-08] MEDS: MORPHINE SULFATE (*CRX) 4 MG/ML INJ IV PUSH ×3 (02:08→09:00)
[2024-10-08 06:55] LABS: Basophils Absolute Auto 0.1 K/mm3 (0.0-0.1); Basophils Percent Auto 0.5 % (0.2-1.2); Eosinophils Absolute Auto 0.2 K/mm3 (0-0.3); Eosinophils Percent Auto 1.8 % (0-4.4); Hematocrit 37.7 % (42.0-52.0); Hemoglobin 12.8 g/dL (14.0-18.0); Immature Granulocyte Absolute 0.08 K/mm3 (0.00-0.031); Immature Granulocyte Percent A 0.8 % (0-0.5); Lymphocytes Absolute Auto 1.52 K/mm3 (0.9-3.2); Lymphocytes Percent Auto 15.4 % (18.3-44.2); Mean Corpuscular Volume 88.5 fl (80-100); Mean Platelet Volume 10.9 fl (7.4-10.4); Monocytes Absolute Auto 0.9 K/mm3 (0.1-0.6); Monocytes Percent Auto 8.8 % (2.6-8.5); Neutrophils Absolute Auto 7.2 K/mm3 (1.3-6.7); Neutrophils Percent Auto 72.7 % (45.5-73.1); Platelet Count Result 294 k/mm3 (150-375); Red Blood Count 4.26 M/mm3 (4.6-6.20); Red Cell Distribution Width 13.4 % (11.5-14.5); White Blood Count 9.9 K/mm3 (4.5-10.0)
[2024-10-08 07:06] LABS: Alanine Aminotransferase 189 U/L (6-50); Alkaline Phosphatase 242 U/L (38-126); Anion Gap 8 mmol/L (4-12); Aspartate Amino Transferase 60 U/L (17-59); Bilirubin,Total 5.3 mg/dL (0.2-1.3); Blood Urea Nitrogen 12 mg/dL (9-20); Calcium 8.9 mg/dL (8.4-10.2); Carbon Dioxide 24 mmol/L (22-30); Chloride 102 mmol/L (98-107); Estimated CRCL calculation 154 ml/min; Estimated Glomerular Filt Rate > 60; Glucose 106 mg/dL (65-110); Potassium 3.5 mmol/L (3.4-5.0); Sodium 134 mmol/L (137-145)
[2024-10-08 07:19] LABS: INR 1.1
--- NOTE | 2024-10-08 07:58 | P.PNAN_ITS ---
Anes - Prog Note Post-Op Date/Time: 10/08/24 07:58 Cardiovascular status: normal Respiratory status: normal Airway patency: baseline Mental status: baseline Post-Op hydration status: normal Vital Signs: Last Vital Signs Temp 36.4 C 10/08/24 04:52 Pulse 76 10/08/24 04:52 Resp 18 10/08/24 04:52 BP 172/95 H 10/08/24 04:52 Pulse Ox 99 10/08/24 04:52 O2 Del Method Room Air 10/07/24 20:00 FiO2 21 10/06/24 08:52 Pain Score (VAS): 0 I/O: Intake & Output 10/07/24 10/07/24 10/08/24 15:59 23:59 07:59 Intake Total 200 150 50 Output Total 2 Balance 200 148 50 Laboratory Tests 10/08/24 06:19 10/08/24 06:19 10/08/24 06:19 WBC 9.9 RBC 4.26 L Hgb 12.8 L Hct 37.7 L MCV 88.5 MCH 30.0 MCHC 34.0 RDW 13.4 Plt Count 294 MPV 10.9 H Immature Gran % (Auto) 0.8 H Neut % (Auto) 72.7 Lymph % (Auto) 15.4 L [place] % (Auto) 8.8 H Eos % (Auto) 1.8 Baso % (Auto) 0.5 Lymph # (Auto) 1.52 [place] # (Auto) 0.9 H Eos # (Auto) 0.2 Baso # (Auto) 0.1 Abs Immat Gran (auto) 0.08 H Absolute Neuts (auto) 7.2 H Absolute Nucleated RBC 0.000 Nucleated RBC % 0.0 PT 14.0 INR 1.1 Sodium 134 L Potassium 3.5 Chloride 102 Carbon Dioxide 24 Anion Gap 8 BUN 12 Creatinine 0.70 Estim Creat Clear Calc 154 Estimated GFR > 60 Glucose 106 Calcium 8.9 Total Bilirubin 5.3 H AST 60 H ALT 189 H Alkaline Phosphatase 242 H Total Protein 7.0 Albumin 4.0 Blood Type Pending Antibody Screen Pending Microbiology 10/05/24 14:30 Blood Blood Culture - Final Klebsiella pneumoniae 10/05/24 14:30 Blood Blood Culture - Preliminary Klebsiella pneumoniae Post-procedural complaints: none Patient Feedback: Patient satisfied with anesthetic care.
[2024-10-08] MEDS: ATORVASTATIN 40 MG TABLET 80 MG PO (08:48)
[2024-10-08] MEDS: THIAMINE HCL 200 MG/2 ML VIAL 100 MG IV PUSH (08:51)
[2024-10-08] MEDS: FENOFIBRATE NANOCRYSTALLIZED 145 MG TABLET PO (08:51)
--- NOTE | 2024-10-08 10:09 | WPDHPUPDATE1 ---
History and Physical Update Update Date/Time: 10/08/24 10:09 History and Physical has been reviewed, including an updated exam of the patient. There are NO changes in the patient's condition. Risks, benefits, and alternatives have been discussed and questions answered. Patient agrees to proceed with procedure.
--- NOTE | 2024-10-08 11:12 | WPDANESEPPF ---
Anes - Initial Pre Proc Eval Procedure: Operation Date: 10/08/24 12:30 Proposed Procedures p Laparoscopic Cholecystectomy - Piedad Mc MD Date/Time: 10/08/24 11:12 Surgeon: Zainab Curtis APRN Pre Op Diagnosis: Acute Cholecystitis Patient Data Age: 43 Gender: M Height: 1.78 m Weight: 122.9 kg Last Vital Signs Temp 36.8 C 10/08/24 08:52 Pulse 82 10/08/24 08:52 Resp 18 10/08/24 08:52 BP 160/102 H 10/08/24 08:52 Pulse Ox 99 10/08/24 08:52 O2 Del Method Room Air 10/07/24 20:00 FiO2 21 10/06/24 08:52 Allergies Allergy/AdvReac Type Severity Reaction Status Date / Time No Known Allergies Allergy Verified 10/07/24 11:11 Home Medications Medication Instructions Recorded Confirmed Type atorvastatin 80 mg tablet 80 mg PO DAILY 10/04/24 10/07/24 History fenofibrate nanocrystallized 145 145 mg PO DAILY 10/04/24 10/07/24 History mg tablet hydrocodone 5 mg-acetaminophen 325 1 tablet PO Q8H PRN pain #10 tabs 10/04/24 10/07/24 Rx mg tablet omeprazole 40 mg capsule,delayed 40 mg PO DAILY 10/04/24 10/07/24 History release Laboratory Tests 10/08/24 06:19 WBC 9.9 K/mm3 (4.5-10.0) RBC 4.26 L M/mm3 (4.6-6.20) Hgb 12.8 L g/dL (14.0-18.0) Hct 37.7 L % (42.0-52.0) MCV 88.5 fl (80-100) MCH 30.0 pg (26-34) MCHC 34.0 g/dl (32-36) RDW 13.4 % (11.5-14.5) Plt Count 294 k/mm3 (150-375) MPV 10.9 H fl (7.4-10.4) Immature Gran % (Auto) 0.8 H % (0-0.5) Neut % (Auto) 72.7 % (45.5-73.1) Lymph % (Auto) 15.4 L % (18.3-44.2) [place] % (Auto) 8.8 H % (2.6-8.5) Eos % (Auto) 1.8 % (0-4.4) Baso % (Auto) 0.5 % (0.2-1.2) Lymph # (Auto) 1.52 K/mm3 (0.9-3.2) [place] # (Auto) 0.9 H K/mm3 (0.1-0.6) Eos # (Auto) 0.2 K/mm3 (0-0.3) Baso # (Auto) 0.1 K/mm3 (0.0-0.1) Abs Immat Gran (auto) 0.08 H K/mm3 (0.00-0.031) Absolute Neuts (auto) 7.2 H K/mm3 (1.3-6.7) Absolute Nucleated RBC 0.000 K/mm3 (0.0-0.012) Nucleated RBC % 0.0 % (0.0-0.2) PT 14.0 Seconds (11.1-14.7) INR 1.1 Sodium 134 L mmol/L (137-145) Potassium 3.5 mmol/L (3.4-5.0) Chloride 102 mmol/L (98-107) Carbon Dioxide 24 mmol/L (22-30) Anion Gap 8 mmol/L (4-12) BUN 12 mg/dL (9-20) Creatinine 0.70 mg/dL (0.7-1.3) Estim Creat Clear Calc 154 ml/min Estimated GFR > 60 (59 - ) Glucose 106 mg/dL (65-110) Calcium 8.9 mg/dL (8.4-10.2) Total Bilirubin 5.3 H mg/dL (0.2-1.3) AST 60 H U/L (17-59) ALT 189 H U/L (6-50) Alkaline Phosphatase 242 H U/L (38-126) Total Protein 7.0 g/dL (6.3-8.2) Albumin 4.0 g/dL (3.5-5.1) Blood Type A Positive Antibody Screen Negative Patient hx anesthesia problems: none Family hx anesthesia problems: none Results Review: All pre-operative results and documents have been reviewed as part of the pre-operative evaluation. [facility] Past Medical History Medical History Daily consumption of alcohol Dyslipidemia GERD (gastroesophageal reflux disease) Surgical History Surgical History No history of previous surgery Family History Family History Other Family history non-contributory Social History Social History Social History: Surrogate medical decision maker: sheela Rosario. Code status: Full code. Years smoked: 25 Smoking status: Current every day smoker Tobacco type: e-cigarettes/vaping Second hand tobacco smoke exposure: No Alcohol intake: current Drinks per week: 4 Alcohol use details: 2 to 3 beers a night with a few shots of whiskey Substance use: current Substance use type: marijuana Last use: 10/05/24 Do You Feel Safe in your Home?: Yes Lack of Transportation: No Lack of Food: Never True Current Housing: I Have Housing Concerned About Future Housing: No Difficulty Paying Gas/Electric Bills: No Difficulty Paying for Meds: No Currently Unemployed: No Education: High School Diploma/GED Difficulty w/ Childcare or Family Care: No Spiritual care concerns: No Anes - Eval Final PreProcedure Day of Procedure 10/08/24 11:12 Patient weight: obese Heart: regular rate and rhythm Lungs: clear to auscultation Airway: Mallampati scale class III Neurological: alert and oriented Last oral intake: >/= 8 hours ASA classification: III Emergent: no Anesthetic plan: proceed Anesthesia type and monitoring: general ETT and standard monitoring Results Review: All pre-operative results and documents have been reviewed as part of the pre-operative evaluation. Informed Consent: The patient's anesthetic plan and its attendant risks and benefits were discussed with the patient/family/POA. Questions were solicited and answers provided to the satisfaction of the patient/family/POA.
--- NOTE | 2024-10-08 11:17 | P.PNIM_ITS ---
Progress Note: A&P Assessment and Plan (1) Acute cholecystitis: Code(s): K81.0 - Acute cholecystitis Status: Acute Assessment and Plan: * abdomen/pelvis CT shows acute cholecystitis with prominent ne cholecystic fat stranding/ inflammation since yesterday, diverticulosis of the left colon no evidence of diverticulitis, subtle focal diminished attenuation in the lower right hepatic lobe possibly focal fatty infiltration. * Abdomen ultrasound shows gallbladder distention and wall thickening, acute cholecystitis is suspected, focal hyperechoic area in the right hepatic lobe * patient initially given Rocephin and Flagyl in the ED * transitioned antibiotic to Zosyn * continue IV fluids * continue NPO status * MRCP shown common bile duct stone as well as stones in the cystic duct with findings of acute cholecystitis * ERCP done 10/07/24 with successful stone extraction * Plan for lap cholecystectomy today * initial white blood cell count 14.5, total bili 8.4, AST 453, ALT 502, alk- phos 154 * today white blood cell count 9.9, total bili 5.3, AST 60, ALT 189, alk phos 242 * Blood cultures showing Klebsiella pneumoniae in both sets * 2nd set of blood cultures showing no growth to date on preliminary read. (2) Transaminitis: Code(s): R74.01 - Elevation of levels of liver transaminase levels Status: Acute Assessment and Plan: secondary to acute cholecystitis * today white blood cell count 9.9, total bili 5.3, AST 60, ALT 189, alk phos 242 * see above plan of care (3) Hyperglycemia: Code(s): R73.9 - Hyperglycemia, unspecified Status: Acute Assessment and Plan: * blood sugars ranging 106-121 * hemoglobin A1c 5.8 * continue to trend (4) Dyslipidemia: Code(s): E78.5 - Hyperlipidemia, unspecified Status: Acute Assessment and Plan: * continue atorvastatin and fenofibrate (5) Daily consumption of alcohol: Code(s): Z78.9 - Other specified health status Status: Acute Assessment and Plan: * patient admits to drinking 2-3 beers a night with few shots of whiskey * No signs or symptoms of withdrawal Time Spent With Patient Time with patient: 25 - 35 minutes Subjective Date/time seen: 10/08/24 11:17 Interval history: Interval history: This is a 43-year-old male who present wanted to the hospital on 10/05/2024 with complaints of abdominal pain. Abdomen/ pelvis CT showed 3 mm nonobstructing right renal stone, indeterminate 2 cm ill defined hypodense lesion in the right hepatic lobe which could be either benign or malignant. CT of abdomen pelvis was repeated on 10/05/2024 which showed acute cholecystitis with prominent pericholecystic fat stranding/ inflammation since yesterday diverticulosis of the left colon no evidence of diverticulitis, normal appendix, subtle focal diminished attenuation in the lower right hepatic lobe possibly focal fat infiltration. abdomen ultrasound shown gallbladder distention and wall thickening as seen with acute cholecystitis, node definite gallstones are noted, focal hyperechoic area in the right hepatic lobe possibly focal fatty infiltration or hemangioma. Initial labs showed a white blood cell count of 14.5, RBC 4.57, hemoglobin 13.9, INR 1.3, sodium 134, AST 453, ALT 504, alk-phos 154, total bili 8.4, magnesium 1.4. UA was obtained and showed 2+ urine protein, trace urine ketone, positive nitrate, 3+ urine bili, 1+ leukocytes. Hepatitis panel negative. MRCP showing obstructing common bile duct stone as well as stones in the cystic duct with findings of acute cholecystitis. Subjective: Patient reports pain 5/10. He denies any new complaints today. He states that the nausea and vomiting has resolved and that he is feeling much better than her originally did. Labs reviewed. Review of Systems Review of Systems: 12 systems were reviewed and are negativ e except for as per HPI. All systems reviewed & are unremarkable except as noted in HPI and below Constitutional: Constitutional: Reports as per HPI and Reports no additional constitutional complaints Eyes: Eyes: Reports as per HPI and Reports no additional eye complaints ENT: Reports system reviewed and no additional complaints, except as documented and Reports as per HPI Cardiovascular: Cardiovascular: Reports as per HPI and Reports no additional cardiovascular complaints Respiratory: Respiratory: Reports as per HPI and Reports no additional respiratory complaints Gastrointestinal: Gastrointestinal: Reports as per HPI and Reports no additional gastrointestinal complaints Genitourinary: Genitourinary: Reports no additional male genitourinary complaints and Reports as per HPI Musculoskeletal: Musculoskeletal: Reports no additional musculoskeletal complaints and Reports as per HPI Integumentary/Breasts: Skin/Breast: Reports system reviewed and no additional complaints, except as docu and Reports as per HPI Neurologic: Reports system reviewed and no additional complaints, except as documented and Reports as per HPI Psychiatric: Psychiatric: Reports no additional psychiatric complaints and Reports as per HPI Exam Narrative: General: In no acute distress, well nourished Cardiac: Normal S1 and S2. RRR, No murmur, gallops or friction rubs, peripheral pulses intact. Respiratory: Lungs clear to auscultation, no adventitious lung sounds, currently on room air Gastrointestinal: soft, non-distended, tenderness noted epigastric radiating to back, normoactive bowel sounds. Nausea and vomiting this a.m. : voiding without difficulty. Skin: Neuro: Alert and oriented x4 Objective Data Vital Signs Vital Signs: Vital Signs - 24 hr 10/07/24 12:55 10/07/24 13:05 10/07/24 13:15 Temperature Pulse Rate 98 82 84 Respiratory Rate 19 25 H 27 H Blood Pressure 146/100 H 140/88 136/93 H Pulse Oximetry 98 100 100 Oxygen Delivery Room Air Room Air Room Air 10/07/24 13:25 10/07/24 13:35 10/07/24 13:45 Temperature Pulse Rate 79 77 79 Respiratory Rate 24 H 23 H 23 H Blood Pressure 133/92 H 140/91 H 133/93 H Pulse Oximetry 97 94 94 Oxygen Delivery Room Air Room Air Room Air 10/07/24 13:55 10/07/24 14:35 10/07/24 14:50 Temperature 97.7 F 97.3 F L Pulse Rate 77 82 64 Respiratory Rate 22 H 18 18 Blood Pressure 140/92 H 177/93 H 180/88 H Pulse Oximetry 94 99 97 Oxygen Delivery Room Air 10/07/24 15:22 10/07/24 16:40 10/07/24 20:52 Temperature 97.0 F L 98.0 F 98.0 F Pulse Rate 69 78 77 Respiratory Rate 16 16 16 Blood Pressure 161/97 H 171/90 H 177/98 H Pulse Oximetry 98 98 99 Oxygen Delivery 10/07/24 20:00 10/08/24 00:52 10/08/24 04:52 Temperature 98.0 F 97.6 F Pulse Rate 72 76 Respiratory Rate 16 18 Blood Pressure 172/92 H 172/95 H Pulse Oximetry 100 99 Oxygen Delivery Room Air 10/08/24 08:52 Temperature 98.2 F Pulse Rate 82 Respiratory Rate 18 Blood Pressure 160/102 H Pulse Oximetry 99 Oxygen Delivery Intake/Output Intake/Output: Intake & Output 10/05/24 10/06/24 10/07/24 10/08/24 23:59 23:59 23:59 23:59 Intake Total 1250 2071.7 1400 50 Output Total 2 Balance 1250 2071.7 1398 50 Meds/Results Medications: Active Medications Generic Name Dose Route Start Last Admin Trade Name Freq PRN Reason Stop Dose Admin Atorvastatin Calcium 80 mg 10/06/24 09:00 10/08/24 08:48 Atorvastatin 40 Mg Tablet PO 80 mg DAILY ODILIA Administration Fenofibrate 145 mg 10/06/24 09:00 10/08/24 08:51 Fenofibrate Nanocrystallized 145 Mg Tablet PO 145 mg DAILY ODILIA Administration Levofloxacin 750 mg 10/08/24 14:00 Levofloxacin 750 Mg Tablet PO 10/14/24 14:01 Q24H ODILIA Lisinopril 5 mg 10/08/24 11:10 Lisinopril 5 Mg Tablet PO QAM ODILIA Lorazepam 2 mg 10/05/24 19:50 Lorazepam Inj (*Crx) 2 Mg/Ml Vial IV PUSH Q2H PRN CIWA 8-15 Lorazepam 4 mg 10/05/24 19:50 Lorazepam Inj (*Crx) 2 Mg/Ml Vial IV PUSH Q2H PRN CIWA > 15 Metronidazole 500 mg 10/08/24 14:00 Metronidazole 500 Mg Tablet PO 10/15/24 06:01 Q8HR ODILIA Morphine Sulfate 4 mg 10/07/24 15:05 10/08/24 09:00 Morphine Sulfate (*Crx) 4 Mg/Ml Inj IV PUSH 4 mg Q2H PRN Administration Pain Rated 7-10 Ondansetron HCl 4 mg 10/05/24 19:36 10/07/24 15:16 Ondansetron Inj 4 Mg/2 Ml Vial IV PUSH 4 mg Q6H PRN Administration Nausea And Vomiting Thiamine HCl 100 mg 10/06/24 09:00 10/08/24 08:51 Thiamine Hcl 200 Mg/2 Ml Vial IV PUSH 100 mg QAM ODILIA Administration Radiology Results: ITS Impressions Abdomen/Pelvis CT 10/05/24 15:11 IMPRESSION: Acute cholecystitis, with prominent pericholecystic fat stranding/inflammation since yesterday Diverticulosis of the left colon; no evidence of diverticulitis Normal appendix Subtle focal diminished attenuation in the lower right hepatic lobe, possibly focal fatty infiltration. MRI has been recommended differentiate benign from malignant process. Abdomen Ultrasound 10/05/24 16:51 IMPRESSION: Gallbladder distention and wall thickening; acute cholecystitis is suspected. No definite gallstones are noted. Consider occult gallstone or acalculous cholecystitis. Focal hyperechoic area right hepatic lobe corresponding to CT finding, possibly focal fatty infiltration or hemangioma MRCP 10/06/24 11:45 IMPRESSION: 1. Choledocholithiasis including a 10 x 6 mm stone in the distal aspect of the borderline dilated common bile duct and with mild intrahepatic biliary ductal dilation. 2. There are additional low signal intensity gallstones in the cystic duct and inflammatory stranding surrounding the gallbladder consistent with acute cholecystitis. 3. 2.1 cm hemangioma in the right hepatic lobe which corresponds to the region of concern on prior CT. Labs Labs: Laboratory Results - last 24 hr 10/08/24 06:19 WBC 9.9 RBC 4.26 L Hgb 12.8 L Hct 37.7 L MCV 88.5 MCH 30.0 MCHC 34.0 RDW 13.4 Plt Count 294 MPV 10.9 H Immature Gran % (Auto) 0.8 H Neut % (Auto) 72.7 Lymph % (Auto) 15.4 L [place] % (Auto) 8.8 H Eos % (Auto) 1.8 Baso % (Auto) 0.5 Lymph # (Auto) 1.52 [place] # (Auto) 0.9 H Eos # (Auto) 0.2 Baso # (Auto) 0.1 Abs Immat Gran (auto) 0.08 H Absolute Neuts (auto) 7.2 H Absolute Nucleated RBC 0.000 Nucleated RBC % 0.0 PT 14.0 INR 1.1 Sodium 134 L Potassium 3.5 Chloride 102 Carbon Dioxide 24 Anion Gap 8 BUN 12 Creatinine 0.70 Estim Creat Clear Calc 154 Estimated GFR > 60 Glucose 106 Calcium 8.9 Total Bilirubin 5.3 H AST 60 H ALT 189 H Alkaline Phosphatase 242 H Total Protein 7.0 Albumin 4.0 Blood Type A Positive Antibody Screen Negative Quality VTE Prophylaxis VTE prophylaxis: mechanical ordered
[2024-10-08] MEDS: LACTATED RINGERS 1,000 ML 30 ML IV CONT ×2 (11:47→14:05)
--- NOTE | 2024-10-08 14:48 | P.OP_ITS ---
Procedure Note - Detailed Date of Procedure 10/08/24 Pre-op Diagnosis Acute Cholecystitis, choledocholithiasis Post-op Diagnosis Same Procedure Performed Laparoscopic cholecystectomy, extensive lysis of adhesions Surgeon Piedad Mc MD Anesthesia General Indications 43-year-old male presenting to the emergency department with severe upper abdominal pain. Workup including imaging, significant acute cholecystitis, choledocholithiasis. Subsequent ERCP was done with stone removal and sphincterotomy. Patient now set up for interval cholecystectomy. Findings Severe cholecystitis with cholelithiasis Description of Procedure The patient was taken to the operating room placed in the supine position. After adequate induction of general anesthesia, the patient was prepped and draped in normal sterile fashion. A time-out was then performed to verify the patient's identity as well as the procedure being performed. I then made a 5 mm incision in the infraumbilical region. Through this, a Veress needle was placed into the peritoneal cavity and CO2 gas was then insufflated. After adequate pneumoperitoneum was achieved, the Veress needle was removed and a 5 mm optiview trocar was placed through this incision under direct visualization. I then placed the laparoscope through this trocar site and under direct visualization placed a further 12 mm subxiphoid port as well as 2 additional 5 mm ports in the right upper abdomen. There was a large inflammatory mass in the right upper quadrant. Using careful dissection both bluntly and sharply with the Bovie cautery, this was noted to be a large amount of omental adhesions covering the severely inflamed gallbladder. Once these adhesions were taken down, the gallbladder was then identified and was noted to be severely inflamed, distended, and full of gallstones. The gallbladder was also noted to be extremely friable. Upon retraction, the gallbladder wall tore and bilious drainage was noted. I was able to place a grasper at the dome of the gallbladder and this was retracted anterior and cephalad up over the liver. A 2nd retractor was then placed at the infundibulum and retracted laterally, this allowed visualization of the triangle of [place]. I then was able to visualize the cystic duct in its entirety from its proximal insertion into the gallbladder, to its distal junction with the common hepatic/common bile duct junction. At this point, I carefully skeletonized the proximal cystic duct with the [place] dissector. I then clipped and transected the proximal cystic duct. Next I visualized the cystic artery. Again the artery was skeletonized, clipped, and transected. I then used the Bovie cautery to take down the peritoneal attachments of the gallbladder off the liver bed. This was difficult given the amount of inflammation in the posterior space. Once the gallbladder specimen was completely detached, an endo-pouch was placed through the 12 mm port site. I then placed the gallbladder specimen into the Endo pouch and removed the endo-pouch from the 12 mm port site. The specimen will now be sent to pathology for further review. I then copiously irrigated the right upper quadrant. Some mild oozing was noted in the liver bed and this was controlled with the bovie cautery. Hemostasis was noted in the liver bed, the clips were noted to be in good position on both the cystic duct stump and the cystic artery stump. No other pathology was noted in the right upper quadrant. Given the amount of inflammation, I left a 15 [place] MAT drain in the right upper quadrant coming out through the right 5 mm port site. I then moved the laparoscope to the subxiphoid port. No iatrogenic injury or other pathology was noted in the lower abdomen. I then closed the 12 mm trocar site under direct visualization using the Carlos cone and 0 Vicryl suture. At this point, the abdomen was desufflated and all ports removed. All port sites were then closed with 4.O Monocryl subcuticular sutures. Dermabond was placed on each incision. The patient tolerated the procedure well, was extubated in the operating room postoperative and will be transferred to the recovery room in stable condition Estimated Blood Loss 250 Drains Yes Packing No Pathology Yes Complications No immediate complications Condition Stable Disposition PACU [facility] Billing Surgery - Charge Forward: Surgery Billing
[2024-10-08] MEDS: metroNIDAZOLE 500 MG TABLET PO ×2 (15:29→21:43)
[2024-10-08] MEDS: lisinopriL 5 MG TABLET PO (15:29)
[2024-10-08] MEDS: HYDROcodone/acetaminophen (*CRX) 5-325 MG TABLET 1 TAB PO ×2 (15:29→19:45)
[2024-10-08] MEDS: levoFLOXacin 750 MG TABLET PO (15:29)
[2024-10-09] MEDS: HYDROcodone/acetaminophen (*CRX) 5-325 MG TABLET 1 TAB PO ×6 (00:06→20:57)
[2024-10-09 00:13] VITALS: BP 148/89; PULSE 93; RESP 16; TEMP 36.1; O2SAT 100
[2024-10-09 04:35] VITALS: BP 141/87; PULSE 77; RESP 16; TEMP 36.2; O2SAT 97
[2024-10-09] MEDS: metroNIDAZOLE 500 MG TABLET PO ×3 (06:08→20:57)
[2024-10-09] MEDS: MORPHINE SULFATE (*CRX) 4 MG/ML INJ IV PUSH (06:43)
[2024-10-09] MEDS: ONDANSETRON INJ 4 MG/2 ML VIAL IV PUSH (07:02)
[2024-10-09] MEDS: FENOFIBRATE NANOCRYSTALLIZED 145 MG TABLET PO (09:19)
[2024-10-09] MEDS: ATORVASTATIN 40 MG TABLET 80 MG PO (09:19)
[2024-10-09] MEDS: lisinopriL 5 MG TABLET PO (09:19)
[2024-10-09] MEDS: THIAMINE HCL 200 MG/2 ML VIAL 100 MG IV PUSH (09:19)
--- NOTE | 2024-10-09 09:56 | WPDANESPN ---
Anes - Prog Note Post-Op Date/Time: 10/09/24 09:56 Cardiovascular status: normal Respiratory status: normal Airway patency: baseline Mental status: baseline Post-Op hydration status: normal Vital Signs: Last Vital Signs Temp 36.2 C L 10/09/24 04:35 Pulse 77 10/09/24 04:35 Resp 16 10/09/24 04:35 BP 141/87 H 10/09/24 04:35 Pulse Ox 97 10/09/24 04:35 O2 Del Method Room Air 10/08/24 15:05 O2 Flow Rate 8 10/08/24 14:20 FiO2 21 10/06/24 08:52 Pain Score (VAS): 02/19 I/O: Intake & Output 10/08/24 10/09/24 10/09/24 23:59 07:59 15:59 Intake Total 790 800 Output Total 10 25 Balance 780 775 Laboratory Tests 10/08/24 06:19 10/08/24 06:19 Microbiology 10/07/24 09:13 Blood Blood Culture - Preliminary 10/07/24 09:01 Blood Blood Culture - Preliminary 10/05/24 14:30 Blood Blood Culture - Final Klebsiella pneumoniae 10/05/24 14:30 Blood Blood Culture - Preliminary Klebsiella pneumoniae Post-procedural complaints: nausea Patient Feedback: Patient satisfied with anesthetic care.
[2024-10-09] MEDS: levoFLOXacin 750 MG TABLET PO (13:02)
--- NOTE | 2024-10-09 14:23 | P.PNIM_ITS ---
Progress Note: A&P Assessment and Plan (1) Acute cholecystitis: Code(s): K81.0 - Acute cholecystitis Status: Acute Assessment and Plan: * abdomen/pelvis CT shows acute cholecystitis with prominent ne cholecystic fat stranding/ inflammation since yesterday, diverticulosis of the left colon no evidence of diverticulitis, subtle focal diminished attenuation in the lower right hepatic lobe possibly focal fatty infiltration. * Abdomen ultrasound shows gallbladder distention and wall thickening, acute cholecystitis is suspected, focal hyperechoic area in the right hepatic lobe * patient initially given Rocephin and Flagyl in the ED * transitioned antibiotic to Zosyn * continue IV fluids * continue NPO status * MRCP shown common bile duct stone as well as stones in the cystic duct with findings of acute cholecystitis * ERCP done 10/07/24 with successful stone extraction * post op day 1 from cholecystectomy * initial white blood cell count 14.5, total bili 8.4, AST 453, ALT 502, alk- phos 154 * Total Bili 2.5, AST 57, ALT 124, Alk phos 222 * Blood cultures showing Klebsiella pneumoniae in both sets * 2nd set of blood cultures still showing no growth to date on preliminary read. (2) Transaminitis: Code(s): R74.01 - Elevation of levels of liver transaminase levels Status: Acute Assessment and Plan: secondary to acute cholecystitis * today white blood cell count 14.5 Total Bili 2.5, AST 57, ALT 124, Alk phos 222 * see above plan of care (3) Hyperglycemia: Code(s): R73.9 - Hyperglycemia, unspecified Status: Acute Assessment and Plan: * blood sugars ranging 106-121 * hemoglobin A1c 5.8 * continue to trend (4) Dyslipidemia: Code(s): E78.5 - Hyperlipidemia, unspecified Status: Acute Assessment and Plan: * continue atorvastatin and fenofibrate (5) Daily consumption of alcohol: Code(s): Z78.9 - Other specified health status Status: Acute Assessment and Plan: * patient admits to drinking 2-3 beers a night with few shots of whiskey * No signs or symptoms of withdrawal Time Spent With Patient Time with patient: 15 - 25 minutes Subjective Date/time seen: 10/09/24 14:23 Interval history: Interval history: This is a 43-year-old male who present wanted to the hospital on 10/05/2024 with complaints of abdominal pain. Abdomen/ pelvis CT showed 3 mm nonobstructing right renal stone, indeterminate 2 cm ill defined hypodense lesion in the right hepatic lobe which could be either benign or malignant. CT of abdomen pelvis was repeated on 10/05/2024 which showed acute cholecystitis with prominent pericholecystic fat stranding/ inflammation since yesterday diverticulosis of the left colon no evidence of diverticulitis, normal appendix, subtle focal diminished attenuation in the lower right hepatic lobe possibly focal fat infiltration. abdomen ultrasound shown gallbladder distention and wall t hickening as seen with acute cholecystitis, node definite gallstones are noted, focal hyperechoic area in the right hepatic lobe possibly focal fatty infiltration or hemangioma. Initial labs showed a white blood cell count of 14.5, RBC 4.57, hemoglobin 13.9, INR 1.3, sodium 134, AST 453, ALT 504, alk-phos 154, total bili 8.4, magnesium 1.4. UA was obtained and showed 2+ urine protein, trace urine ketone, positive nitrate, 3+ urine bili, 1+ leukocytes. Hepatitis panel negative. MRCP showing obstructing common bile duct stone as well as stones in the cystic duct with findings of acute cholecystitis. Subjective: Patient states he is doing better today. He states his pain is controlled. He will move from full liquid to regular food for dinner tonight. Tolerating Full liquids. He did have some nausea this morning initially but states it has gone away. Labs reviewed. Review of Systems Review of Systems: 12 systems were reviewed and are negativ e except for as per HPI. All systems reviewed & are unremarkable except as noted in HPI and below Constitutional: Constitutional: Reports as per HPI and Reports no additional constitutional complaints Eyes: Eyes: Reports as per HPI and Reports no additional eye complaints ENT: Reports system reviewed and no additional complaints, except as documented and Reports as per HPI Cardiovascular: Cardiovascular: Reports as per HPI and Reports no additional cardiovascular complaints Respiratory: Respiratory: Reports as per HPI and Reports no additional respiratory complaints Gastrointestinal: Gastrointestinal: Reports as per HPI and Reports no additional gastrointestinal complaints Genitourinary: Genitourinary: Reports no additional male genitourinary complaints and Reports as per HPI Musculoskeletal: Musculoskeletal: Reports no additional musculoskeletal complaints and Reports as per HPI Integumentary/Breasts: Skin/Breast: Reports system reviewed and no additional complaints, except as docu and Reports as per HPI Neurologic: Reports system reviewed and no additional complaints, except as documented and Reports as per HPI Psychiatric: Psychiatric: Reports no additional psychiatric complaints and Reports as per HPI Exam Narrative: General: In no acute distress, well nourished Cardiac: Normal S1 and S2. RRR, No murmur, gallops or friction rubs, peripheral pulses intact. Respiratory: Lungs clear to auscultation, no adventitious lung sounds, currently on room air Gastrointestinal: soft, non-distended, tenderness noted epigastric radiating to back, normoactive bowel sounds. Nausea and vomiting this a.m. : voiding without difficulty. Skin: lap sites Neuro: Alert and oriented x4 Objective Data Vital Signs Vital Signs: Vital Signs - 24 hr 10/08/24 14:28 10/08/24 14:35 10/08/24 14:50 Temperature Pulse Rate 84 83 Respiratory Rate 20 18 Blood Pressure 152/82 H 140/91 H Pulse Oximetry 93 94 Oxygen Delivery Room Air Room Air Room Air 10/08/24 15:05 10/08/24 15:30 10/08/24 15:45 Temperature 98.6 F 98.1 F 97.5 F L Pulse Rate 88 76 72 Respiratory Rate 16 16 16 Blood Pressure 144/84 H 142/92 H 138/91 H Pulse Oximetry 96 96 99 Oxygen Delivery Room Air 10/08/24 16:00 10/08/24 17:00 10/08/24 21:03 Temperature 98.2 F 98.2 F 97.3 F L Pulse Rate 85 83 90 Respiratory Rate 16 16 16 Blood Pressure 149/84 H 140/90 153/96 H Pulse Oximetry 99 99 98 Oxygen Delivery 10/09/24 00:13 10/09/24 04:35 10/09/24 09:17 Temperature 97.0 F L 97.1 F L Pulse Rate 93 77 Respiratory Rate 16 16 Blood Pressure 148/89 H 141/87 H Pulse Oximetry 100 97 Oxygen Delivery Room Air Intake/Output Intake/Output: Intake & Output 10/06/24 10/07/24 10/08/24 10/09/24 23:59 23:59 23:59 23:59 Intake Total 1.7 8243 188 2773 Output Total 2 66 25 Balance 2071.7 0372 106 2984 Meds/Results Medications: Active Medications Generic Name Dose Route Start Last Admin Trade Name Freq PRN Reason Stop Dose Admin Hydrocodone Bitart/Acetaminophen 1 tab 10/08/24 15:12 10/09/24 13:02 Hydrocodone/Acetaminophen (*Crx) 5-325 Mg Tablet PO 1 tab Q4H PRN Administration Pain Rated 4-6 Atorvastatin Calcium 80 mg 10/06/24 09:00 10/09/24 09:19 Atorvastatin 40 Mg Tablet PO 80 mg DAILY ODILAI Administration Fenofibrate 145 mg 10/06/24 09:00 10/09/24 09:19 Fenofibrate Nanocrystallized 145 Mg Tablet PO 145 mg DAILY DOILIA Administration Levofloxacin 750 mg 10/08/24 14:00 10/09/24 13:02 Levofloxacin 750 Mg Tablet PO 10/14/24 14:01 750 mg Q24H ODILIA Administration Lisinopril 5 mg 10/08/24 11:10 10/09/24 09:19 Lisinopril 5 Mg Tablet PO 5 mg QAM ODILIA Administration Lorazepam 2 mg 10/05/24 19:50 Lorazepam Inj (*Crx) 2 Mg/Ml Vial IV PUSH Q2H PRN CIWA 8-15 Lorazepam 4 mg 10/05/24 19:50 Lorazepam Inj (*Crx) 2 Mg/Ml Vial IV PUSH Q2H PRN CIWA > 15 Metronidazole 500 mg 10/08/24 14:00 10/09/24 13:02 Metronidazole 500 Mg Tablet PO 10/15/24 06:01 500 mg Q8HR ODILIA Administration Morphine Sulfate 4 mg 10/07/24 15:05 10/09/24 06:43 Morphine Sulfate (*Crx) 4 Mg/Ml Inj IV PUSH 4 mg Q2H PRN Administration Pain Rated 7-10 Ondansetron HCl 4 mg 10/05/24 19:36 10/09/24 07:02 Ondansetron Inj 4 Mg/2 Ml Vial IV PUSH 4 mg Q6H PRN Administration Nausea And Vomiting Thiamine HCl 100 mg 10/06/24 09:00 10/09/24 09:19 Thiamine Hcl 200 Mg/2 Ml Vial IV PUSH 100 mg QAM ODILIA Administration Radiology Results: ITS Impressions Abdomen/Pelvis CT 10/05/24 15:11 IMPRESSION: Acute cholecystitis, with prominent pericholecystic fat stranding/inflammation since yesterday Diverticulosis of the left colon; no evidence of diverticulitis Normal appendix Subtle focal diminished attenuation in the lower right hepatic lobe, possibly focal fatty infiltration. MRI has been recommended differentiate benign from malignant process. Abdomen Ultrasound 10/05/24 16:51 IMPRESSION: Gallbladder distention and wall thickening; acute cholecystitis is suspected. No definite gallstones are noted. Consider occult gallstone or acalculous cholecystitis. Focal hyperechoic area right hepatic lobe corresponding to CT finding, possibly focal fatty infiltration or hemangioma MRCP 10/06/24 11:45 IMPRESSION: 1. Choledocholithiasis including a 10 x 6 mm stone in the distal aspect of the borderline dilated common bile duct and with mild intrahepatic biliary ductal dilation. 2. There are additional low signal intensity gallstones in the cystic duct and inflammatory stranding surrounding the gallbladder consistent with acute cholecystitis. 3. 2.1 cm hemangioma in the right hepatic lobe which corresponds to the region of concern on prior CT. Quality VTE Prophylaxis VTE prophylaxis: mechanical ordered
[2024-10-09 14:59] LABS: Basophils Absolute Auto 0.1 K/mm3 (0.0-0.1); Basophils Percent Auto 0.4 % (0.2-1.2); Eosinophils Absolute Auto 0.2 K/mm3 (0-0.3); Hematocrit 37.8 % (42.0-52.0); Hemoglobin 12.8 g/dL (14.0-18.0); Immature Granulocyte Absolute 0.23 K/mm3 (0.00-0.031); Immature Granulocyte Percent A 1.6 % (0-0.5); Lymphocytes Percent Auto 19.3 % (18.3-44.2); Mean Corpuscular HGB Conc 33.9 g/dl (32-36); Mean Corpuscular Hemoglobin 30.3 pg (26-34); Mean Corpuscular Volume 89.6 fl (80-100); Mean Platelet Volume 10.3 fl (7.4-10.4); Monocytes Absolute Auto 1.4 K/mm3 (0.1-0.6); Monocytes Percent Auto 9.9 % (2.6-8.5); Neutrophils Absolute Auto 9.8 K/mm3 (1.3-6.7); Neutrophils Percent Auto 67.8 % (45.5-73.1); Platelet Count Result 336 k/mm3 (150-375); Red Blood Count 4.22 M/mm3 (4.6-6.20); Red Cell Distribution Width 13.9 % (11.5-14.5); White Blood Count 14.5 K/mm3 (4.5-10.0)
[2024-10-09 15:07] LABS: Alanine Aminotransferase 124 U/L (6-50); Alkaline Phosphatase 222 U/L (38-126); Anion Gap 10 mmol/L (4-12); Aspartate Amino Transferase 57 U/L (17-59); Bilirubin,Total 2.5 mg/dL (0.2-1.3); Blood Urea Nitrogen 15 mg/dL (9-20); Calcium 9.4 mg/dL (8.4-10.2); Carbon Dioxide 29 mmol/L (22-30); Chloride 96 mmol/L (98-107); Estimated CRCL calculation 134 ml/min; Estimated Glomerular Filt Rate > 60; Glucose 103 mg/dL (65-110); Potassium 3.9 mmol/L (3.4-5.0); Sodium 135 mmol/L (137-145)
[2024-10-09 21:07] VITALS: BP 141/91; PULSE 91; RESP 16; TEMP 36.6; O2SAT 98
[2024-10-10] MEDS: HYDROcodone/acetaminophen (*CRX) 5-325 MG TABLET 1 TAB PO ×5 (02:07→23:08)
[2024-10-10 05:41] VITALS: BP 141/84; PULSE 81; RESP 16; TEMP 36.3; O2SAT 99
[2024-10-10] MEDS: metroNIDAZOLE 500 MG TABLET PO ×3 (05:51→22:36)
[2024-10-10 06:26] LABS: Basophils Absolute Auto 0.1 K/mm3 (0.0-0.1); Basophils Percent Auto 0.7 % (0.2-1.2); Eosinophils Absolute Auto 0.2 K/mm3 (0-0.3); Eosinophils Percent Auto 1.3 % (0-4.4); Hemoglobin 12.8 g/dL (14.0-18.0); Immature Granulocyte Absolute 0.35 K/mm3 (0.00-0.031); Immature Granulocyte Percent A 1.9 % (0-0.5); Lymphocytes Absolute Auto 2.83 K/mm3 (0.9-3.2); Lymphocytes Percent Auto 15.7 % (18.3-44.2); Mean Corpuscular HGB Conc 33.7 g/dl (32-36); Mean Corpuscular Hemoglobin 30.3 pg (26-34); Mean Platelet Volume 10.5 fl (7.4-10.4); Monocytes Absolute Auto 1.4 K/mm3 (0.1-0.6); Monocytes Percent Auto 7.7 % (2.6-8.5); Neutrophils Absolute Auto 13.1 K/mm3 (1.3-6.7); Neutrophils Percent Auto 72.7 % (45.5-73.1); Platelet Count Result 351 k/mm3 (150-375); Red Blood Count 4.22 M/mm3 (4.6-6.20); Red Cell Distribution Width 13.7 % (11.5-14.5)
[2024-10-10 06:44] LABS: Alanine Aminotransferase 126 U/L (6-50); Albumin Level 3.9 g/dL (3.5-5.1); Alkaline Phosphatase 215 U/L (38-126); Anion Gap 10 mmol/L (4-12); Aspartate Amino Transferase 74 U/L (17-59); Bilirubin,Total 2.4 mg/dL (0.2-1.3); Blood Urea Nitrogen 14 mg/dL (9-20); Calcium 9.3 mg/dL (8.4-10.2); Carbon Dioxide 28 mmol/L (22-30); Chloride 98 mmol/L (98-107); Estimated CRCL calculation 135 ml/min; Estimated Glomerular Filt Rate > 60; Glucose 111 mg/dL (65-110); Potassium 3.7 mmol/L (3.4-5.0); Sodium 136 mmol/L (137-145)
[2024-10-10] MEDS: ATORVASTATIN 40 MG TABLET 80 MG PO (09:46)
[2024-10-10] MEDS: lisinopriL 5 MG TABLET PO (09:46)
[2024-10-10] MEDS: FENOFIBRATE NANOCRYSTALLIZED 145 MG TABLET PO (09:46)
[2024-10-10] MEDS: THIAMINE HCL 200 MG/2 ML VIAL 100 MG IV PUSH (09:46)
--- NOTE | 2024-10-10 12:11 | P.PN_ITS ---
Progress Note: A&P Assessment and Plan (1) Choledocholithiasis with obstruction: Qualifiers: Cholecystitis presence: with cholecystitis Cholecystitis acuity: acute Qualified Code(s): K80.43 - Calculus of bile duct with acute cholecystitis with obstruction Code(s): K80.51 - Calculus of bile duct without cholangitis or cholecystitis with obstruction Status: Acute Assessment and Plan: Liver enzymes are stable. Total bili is now down to 2. White blood cell count did mildly increased to 18,000. Otherwise no obvious issues. Will continue the oral antibiotics and regular diet today. Recheck cell count tomorrow. If he continues to have and increase in his white blood cell count then would likely get a CT scan to rule out abdominal source of leukocytosis and possible infection. Subjective Date/time seen: 10/10/24 12:11 Interval history: Patient overall feels pretty good. Tolerating solid food but can not eat a large amount. White blood count slightly elevated to 18,000 from 15,000 yesterday. No fever however. He is now on oral Levaquin and oral Flagyl. Liver enzymes were stable and not significantly decreased. Exam GI: Other: Abdomen is soft and nondistended. Site incisions are healing without redness or drainage. MAT says with minimal serous fluid. Objective Data Vital Signs Vital Signs: Vital Signs - 24 hr 10/09/24 21:07 10/09/24 20:00 10/10/24 05:41 Temperature 36.6 C 36.3 C L Pulse Rate 91 81 Respiratory Rate 16 16 Blood Pressure 141/91 H 141/84 H Pulse Oximetry 98 99 Oxygen Delivery Room Air Intake/Output Intake/Output: Intake & Output 10/07/24 10/08/24 10/09/24 10/10/24 23:59 23:59 23:59 23:59 Intake Total 9088 875 4533 1090 Output Total 2 66 55 5 Balance 9208 653 0403 1085 Meds/Results Medications: Active Medications Generic Name Dose Route Start Last Admin Trade Name Freq PRN Reason Stop Dose Admin Hydrocodone Bitart/Acetaminophen 1 tab 10/08/24 15:12 10/10/24 10:53 Hydrocodone/Acetaminophen (*Crx) 5-325 Mg Tablet PO 1 tab Q4H PRN Administration Pain Rated 4-6 Atorvastatin Calcium 80 mg 10/06/24 09:00 10/10/24 09:46 Atorvastatin 40 Mg Tablet PO 80 mg DAILY ODILIA Administration Fenofibrate 145 mg 10/06/24 09:00 10/10/24 09:46 Fenofibrate Nanocrystallized 145 Mg Tablet PO 145 mg DAILY ODIILA Administration Levofloxacin 750 mg 10/08/24 14:00 10/09/24 13:02 Levofloxacin 750 Mg Tablet PO 10/14/24 14:01 750 mg Q24H ODILIA Administration Lisinopril 5 mg 10/08/24 11:10 10/10/24 09:46 Lisinopril 5 Mg Tablet PO 5 mg QAM ODILIA Administration Lorazepam 2 mg 10/05/24 19:50 Lorazepam Inj (*Crx) 2 Mg/Ml Vial IV PUSH Q2H PRN CIWA 8-15 Lorazepam 4 mg 10/05/24 19:50 Lorazepam Inj (*Crx) 2 Mg/Ml Vial IV PUSH Q2H PRN CIWA > 15 Metronidazole 500 mg 10/08/24 14:00 10/10/24 05:51 Metronidazole 500 Mg Tablet PO 10/15/24 06:01 500 mg Q8HR ODILIA Administration Morphine Sulfate 4 mg 10/07/24 15:05 10/09/24 06:43 Morphine Sulfate (*Crx) 4 Mg/Ml Inj IV PUSH 4 mg Q2H PRN Administration Pain Rated 7-10 Ondansetron HCl 4 mg 10/05/24 19:36 10/09/24 07:02 Ondansetron Inj 4 Mg/2 Ml Vial IV PUSH 4 mg Q6H PRN Administration Nausea And Vomiting Thiamine HCl 100 mg 10/06/24 09:00 10/10/24 09:46 Thiamine Hcl 200 Mg/2 Ml Vial IV PUSH 100 mg QAM ODILIA Administration Radiology Results: ITS Impressions Abdomen/Pelvis CT 10/05/24 15:11 IMPRESSION: Acute cholecystitis, with prominent pericholecystic fat stranding/inflammation since yesterday Diverticulosis of the left colon; no evidence of diverticulitis Normal appendix Subtle focal diminished attenuation in the lower right hepatic lobe, possibly focal fatty infiltration. MRI has been recommended differentiate benign from malignant process. Abdomen Ultrasound 10/05/24 16:51 IMPRESSION: Gallbladder distention and wall thickening; acute cholecystitis is suspected. No definite gallstones are noted. Consider occult gallstone or acalculous cholecystitis. Focal hyperechoic area right hepatic lobe corresponding to CT finding, possibly focal fatty infiltration or hemangioma MRCP 10/06/24 11:45 IMPRESSION: 1. Choledocholithiasis including a 10 x 6 mm stone in the distal aspect of the borderline dilated common bile duct and with mild intrahepatic biliary ductal dilation. 2. There are additional low signal intensity gallstones in the cystic duct and inflammatory stranding surrounding the gallbladder consistent with acute cholecystitis. 3. 2.1 cm hemangioma in the right hepatic lobe which corresponds to the region of concern on prior CT. Labs Labs: Laboratory Results - last 24 hr 10/09/24 10/10/24 14:48 05:54 WBC 14.5 H 18.0 H RBC 4.22 L 4.22 L Hgb 12.8 L 12.8 L Hct 37.8 L 38.0 L MCV 89.6 90.0 MCH 30.3 30.3 MCHC 33.9 33.7 RDW 13.9 13.7 Plt Count 336 351 MPV 10.3 10.5 H Immature Gran % (Auto) 1.6 H 1.9 H Neut % (Auto) 67.8 72.7 Lymph % (Auto) 19.3 15.7 L [place] % (Auto) 9.9 H 7.7 Eos % (Auto) 1.0 1.3 Baso % (Auto) 0.4 0.7 Lymph # (Auto) 2.80 2.83 [place] # (Auto) 1.4 H 1.4 H Eos # (Auto) 0.2 0.2 Baso # (Auto) 0.1 0.1 Abs Immat Gran (auto) 0.23 H 0.35 H Absolute Neuts (auto) 9.8 H 13.1 H Absolute Nucleated RBC 0.000 0.000 Nucleated RBC % 0.0 0.0 Sodium 135 L 136 L Potassium 3.9 3.7 Chloride 96 L 98 Carbon Dioxide 29 28 Anion Gap 10 10 BUN 15 14 Creatinine 0.80 0.80 Estim Creat Clear Calc 134 135 Estimated GFR > 60 > 60 Glucose 103 111 H Calcium 9.4 9.3 Total Bilirubin 2.5 H 2.4 H AST 57 74 H ALT 124 H 126 H Alkaline Phosphatase 222 H 215 H Total Protein 8.0 8.0 Albumin 4.0 3.9
[2024-10-10 13:55] VITALS: BP 139/88; PULSE 90; RESP 18; TEMP 35.9; O2SAT 99
--- NOTE | 2024-10-10 13:58 | P.PNIM_ITS ---
Progress Note: A&P Assessment and Plan (1) Acute cholecystitis: Code(s): K81.0 - Acute cholecystitis Status: Acute Assessment and Plan: * abdomen/pelvis CT shows acute cholecystitis with prominent ne cholecystic fat stranding/ inflammation since yesterday, diverticulosis of the left colon no evidence of diverticulitis, subtle focal diminished attenuation in the lower right hepatic lobe possibly focal fatty infiltration. * Abdomen ultrasound shows gallbladder distention and wall thickening, acute cholecystitis is suspected, focal hyperechoic area in the right hepatic lobe * patient initially given Rocephin and Flagyl in the ED * continue IV fluids * continue NPO status * MRCP shown common bile duct stone as well as stones in the cystic duct with findings of acute cholecystitis * ERCP done 10/07/24 with successful stone extraction * post op day 2 from cholecystectomy * white blood cell count 18.0 Total Bili 2.4, AST 74, ALT 126, Alk phos 215 * Blood cultures showing Klebsiella pneumoniae in both sets on final read * 2nd set of blood cultures still showing no growth to date on preliminary read. * Continue Levaquin and Flagyl (2) Transaminitis: Code(s): R74.01 - Elevation of levels of liver transaminase levels Status: Acute Assessment and Plan: secondary to acute cholecystitis * today white blood cell count 18.0 Total Bili 2.4, AST 74, ALT 126, Alk phos 215 * see above plan of care (3) Hyperglycemia: Code(s): R73.9 - Hyperglycemia, unspecified Status: Acute Assessment and Plan: * blood sugars ranging 103-111 * hemoglobin A1c 5.8 * continue to trend (4) Dyslipidemia: Code(s): E78.5 - Hyperlipidemia, unspecified Status: Acute Assessment and Plan: * continue atorvastatin and fenofibrate (5) Daily consumption of alcohol: Code(s): Z78.9 - Other specified health status Status: Acute Assessment and Plan: * patient admits to drinking 2-3 beers a night with few shots of whiskey * No signs or symptoms of withdrawal Subjective Date/time seen: 10/10/24 13:58 Interval history: Interval history: This is a 43-year-old male who present wanted to the hospital on 10/05/2024 with complaints of abdominal pain. Abdomen/ pelvis CT showed 3 mm nonobstructing right renal stone, indeterminate 2 cm ill defined hypodense lesion in the right hepatic lobe which could be either benign or malignant. CT of abdomen pelvis was repeated on 10/05/2024 which showed acute cholecystitis with prominent pericholecystic fat stranding/ inflammation since yesterday diverticulosis of the left colon no evidence of diverticulitis, normal appendix, subtle focal diminished attenuation in the lower right hepatic lobe possibly focal fat infiltration. abdomen ultrasound shown gallbladder distention and wall thickening as seen with acute cholecystitis, node definite gallstones are noted, focal hyperechoic area in the right hepatic lobe possibly focal fatty infiltra tion or hemangioma. Initial labs showed a white blood cell count of 14.5, RBC 4.57, hemoglobin 13.9, INR 1.3, sodium 134, AST 453, ALT 504, alk-phos 154, total bili 8.4, magnesium 1.4. UA was obtained and showed 2+ urine protein, trace urine ketone, positive nitrate, 3+ urine bili, 1+ leukocytes. Hepatitis panel negative. MRCP showing obstructing common bile duct stone as well as stones in the cystic duct with findings of acute cholecystitis. Subjective: Patient tolerating diet. He denies any nausea, vomiting today. He reports he had a BM today. Labs reviewed. Review of Systems Review of Systems: 12 systems were reviewed and are negativ e except for as per HPI. All systems reviewed & are unremarkable except as noted in HPI and below Constitutional: Constitutional: Reports as per HPI and Reports no additional constitutional complaints Eyes: Eyes: Reports as per HPI and Reports no additional eye complaints ENT: Reports system reviewed and no additional complaints, except as documented and Reports as per HPI Cardiovascular: Cardiovascular: Reports as per HPI and Reports no additional cardiovascular complaints Respiratory: Respiratory: Reports as per HPI and Reports no additional respiratory complaints Gastrointestinal: Gastrointestinal: Reports as per HPI and Reports no additional gastrointestinal complaints Genitourinary: Genitourinary: Reports no additional male genitourinary complaints and Reports as per HPI Musculoskeletal: Musculoskeletal: Reports no additional musculoskeletal complaints and Reports as per HPI Integumentary/Breasts: Skin/Breast: Reports system reviewed and no additional complaints, except as docu and Reports as per HPI Neurologic: Reports system reviewed and no additional complaints, except as documented and Reports as per HPI Psychiatric: Psychiatric: Reports no additional psychiatric complaints and Reports as per HPI Exam Narrative: General: In no acute distress, well nourished Cardiac: Normal S1 and S2. RRR, No murmur, gallops or friction rubs, peripheral pulses intact. Respiratory: Lungs clear to auscultation, no adventitious lung sounds, currently on room air Gastrointestinal: soft, non-distended, tenderness noted epigastric radiating to back, normoactive bowel sounds. Nausea and vomiting this a.m. : voiding without difficulty. Skin: lap sites Neuro: Alert and oriented x4 Objective Data Vital Signs Vital Signs: Vital Signs - 24 hr 10/09/24 21:07 10/09/24 20:00 10/10/24 05:41 Temperature 97.9 F 97.3 F L Pulse Rate 91 81 Respiratory Rate 16 16 Blood Pressure 141/91 H 141/84 H Pulse Oximetry 98 99 Oxygen Delivery Room Air 10/10/24 13:55 Temperature 96.7 F L Pulse Rate 90 Respiratory Rate 18 Blood Pressure 139/88 Pulse Oximetry 99 Oxygen Delivery Intake/Output Intake/Output: Intake & Output 10/07/24 10/08/24 10/09/24 10/10/24 23:59 23:59 23:59 23:59 Intake Total 2208 810 9319 1090 Output Total 2 66 55 5 Balance 6430 107 0967 1085 Meds/Results Medications: Active Medications Generic Name Dose Route Start Last Admin Trade Name Freq PRN Reason Stop Dose Admin Hydrocodone Bitart/Acetaminophen 1 tab 10/08/24 15:12 10/10/24 10:53 Hydrocodone/Acetaminophen (*Crx) 5-325 Mg Tablet PO 1 tab Q4H PRN Administration Pain Rated 4-6 Atorvastatin Calcium 80 mg 10/06/24 09:00 10/10/24 09:46 Atorvastatin 40 Mg Tablet PO 80 mg DAILY ODILIA Administration Fenofibrate 145 mg 10/06/24 09:00 10/10/24 09:46 Fenofibrate Nanocrystallized 145 Mg Tablet PO 145 mg DAILY ODILIA Administration Levofloxacin 750 mg 10/08/24 14:00 10/09/24 13:02 Levofloxacin 750 Mg Tablet PO 10/14/24 14:01 750 mg Q24H ODILIA Administration Lisinopril 5 mg 10/08/24 11:10 10/10/24 09:46 Lisinopril 5 Mg Tablet PO 5 mg QAM ODILIA Administration Lorazepam 2 mg 10/05/24 19:50 Lorazepam Inj (*Crx) 2 Mg/Ml Vial IV PUSH Q2H PRN CIWA 8-15 Lorazepam 4 mg 10/05/24 19:50 Lorazepam Inj (*Crx) 2 Mg/Ml Vial IV PUSH Q2H PRN CIWA > 15 Metronidazole 500 mg 10/08/24 14:00 10/10/24 05:51 Metronidazole 500 Mg Tablet PO 10/15/24 06:01 500 mg Q8HR ODILIA Administration Morphine Sulfate 4 mg 10/07/24 15:05 10/09/24 06:43 Morphine Sulfate (*Crx) 4 Mg/Ml Inj IV PUSH 4 mg Q2H PRN Administration Pain Rated 7-10 Ondansetron HCl 4 mg 10/05/24 19:36 10/09/24 07:02 Ondansetron Inj 4 Mg/2 Ml Vial IV PUSH 4 mg Q6H PRN Administration Nausea And Vomiting Thiamine HCl 100 mg 10/06/24 09:00 10/10/24 09:46 Thiamine Hcl 200 Mg/2 Ml Vial IV PUSH 100 mg QAM ODILIA Administration Radiology Results: ITS Impressions Abdomen/Pelvis CT 10/05/24 15:11 IMPRESSION: Acute cholecystitis, with prominent pericholecystic fat stranding/inflammation since yesterday Diverticulosis of the left colon; no evidence of diverticulitis Normal appendix Subtle focal diminished attenuation in the lower right hepatic lobe, possibly focal fatty infiltration. MRI has been recommended differentiate benign from malignant process. Abdomen Ultrasound 10/05/24 16:51 IMPRESSION: Gallbladder distention and wall thickening; acute cholecystitis is suspected. No definite gallstones are noted. Consider occult gallstone or acalculous cholecystitis. Focal hyperechoic area right hepatic lobe corresponding to CT finding, possibly focal fatty infiltration or hemangioma MRCP 10/06/24 11:45 IMPRESSION: 1. Choledocholithiasis including a 10 x 6 mm stone in the distal aspect of the borderline dilated common bile duct and with mild intrahepatic biliary ductal dilation. 2. There are additional low signal intensity gallstones in the cystic duct and inflammatory stranding surrounding the gallbladder consistent with acute cholecystitis. 3. 2.1 cm hemangioma in the right hepatic lobe which corresponds to the region of concern on prior CT. Labs Labs: Laboratory Results - last 24 hr 10/09/24 10/10/24 14:48 05:54 WBC 14.5 H 18.0 H RBC 4.22 L 4.22 L Hgb 12.8 L 12.8 L Hct 37.8 L 38.0 L MCV 89.6 90.0 MCH 30.3 30.3 MCHC 33.9 33.7 RDW 13.9 13.7 Plt Count 336 351 MPV 10.3 10.5 H Immature Gran % (Auto) 1.6 H 1.9 H Neut % (Auto) 67.8 72.7 Lymph % (Auto) 19.3 15.7 L [place] % (Auto) 9.9 H 7.7 Eos % (Auto) 1.0 1.3 Baso % (Auto) 0.4 0.7 Lymph # (Auto) 2.80 2.83 [place] # (Auto) 1.4 H 1.4 H Eos # (Auto) 0.2 0.2 Baso # (Auto) 0.1 0.1 Abs Immat Gran (auto) 0.23 H 0.35 H Absolute Neuts (auto) 9.8 H 13.1 H Absolute Nucleated RBC 0.000 0.000 Nucleated RBC % 0.0 0.0 Sodium 135 L 136 L Potassium 3.9 3.7 Chloride 96 L 98 Carbon Dioxide 29 28 Anion Gap 10 10 BUN 15 14 Creatinine 0.80 0.80 Estim Creat Clear Calc 134 135 Estimated GFR > 60 > 60 Glucose 103 111 H Calcium 9.4 9.3 Total Bilirubin 2.5 H 2.4 H AST 57 74 H ALT 124 H 126 H Alkaline Phosphatase 222 H 215 H Total Protein 8.0 8.0 Albumin 4.0 3.9 Quality VTE Prophylaxis VTE prophylaxis: mechanical ordered
[2024-10-10] MEDS: levoFLOXacin 750 MG TABLET PO (14:17)
[2024-10-10 14:25] VITALS: TEMP 36.8
[2024-10-10 19:55] VITALS: BP 143/82; PULSE 91; RESP 16; TEMP 36.6; O2SAT 100
[2024-10-11 04:55] VITALS: BP 133/84; PULSE 77; RESP 16; TEMP 36.7; O2SAT 99
[2024-10-11] MEDS: metroNIDAZOLE 500 MG TABLET PO ×2 (06:14→13:03)
[2024-10-11] MEDS: THIAMINE HCL 200 MG/2 ML VIAL 100 MG IV PUSH (09:02)
[2024-10-11] MEDS: lisinopriL 5 MG TABLET PO (09:02)
[2024-10-11] MEDS: FENOFIBRATE NANOCRYSTALLIZED 145 MG TABLET PO (09:02)
[2024-10-11] MEDS: ATORVASTATIN 40 MG TABLET 80 MG PO (09:02)
[2024-10-11] MEDS: HYDROcodone/acetaminophen (*CRX) 5-325 MG TABLET 1 TAB PO ×2 (09:05→13:06)
[2024-10-11 10:20] LABS: Basophils Absolute Auto 0.1 K/mm3 (0.0-0.1); Basophils Percent Auto 0.5 % (0.2-1.2); Eosinophils Absolute Auto 0.4 K/mm3 (0-0.3); Eosinophils Percent Auto 2.2 % (0-4.4); Hematocrit 39.2 % (42.0-52.0); Hemoglobin 13.4 g/dL (14.0-18.0); Immature Granulocyte Absolute 0.57 K/mm3 (0.00-0.031); Immature Granulocyte Percent A 3.3 % (0-0.5); Lymphocytes Absolute Auto 2.83 K/mm3 (0.9-3.2); Lymphocytes Percent Auto 16.5 % (18.3-44.2); Mean Corpuscular HGB Conc 34.2 g/dl (32-36); Mean Corpuscular Hemoglobin 30.5 pg (26-34); Mean Corpuscular Volume 89.3 fl (80-100); Mean Platelet Volume 10.6 fl (7.4-10.4); Monocytes Percent Auto 5.8 % (2.6-8.5); Neutrophils Absolute Auto 12.3 K/mm3 (1.3-6.7); Neutrophils Percent Auto 71.7 % (45.5-73.1); Platelet Count Result 441 k/mm3 (150-375); Red Blood Count 4.39 M/mm3 (4.6-6.20); Red Cell Distribution Width 13.7 % (11.5-14.5); White Blood Count 17.2 K/mm3 (4.5-10.0)
[2024-10-11 10:43] LABS: Alanine Aminotransferase 114 U/L (6-50); Albumin Level 4.2 g/dL (3.5-5.1); Alkaline Phosphatase 251 U/L (38-126); Anion Gap 9 mmol/L (4-12); Aspartate Amino Transferase 67 U/L (17-59); Bilirubin,Total 2.1 mg/dL (0.2-1.3); Blood Urea Nitrogen 14 mg/dL (9-20); Calcium 9.7 mg/dL (8.4-10.2); Carbon Dioxide 29 mmol/L (22-30); Chloride 97 mmol/L (98-107); Estimated CRCL calculation 134 ml/min; Estimated Glomerular Filt Rate > 60; Glucose 155 mg/dL (65-110); Potassium 3.5 mmol/L (3.4-5.0); Sodium 135 mmol/L (137-145)
--- NOTE | 2024-10-11 12:35 | P.PN_ITS ---
Progress Note: A&P Assessment and Plan (1) Acute cholecystitis: Code(s): K81.0 - Acute cholecystitis Status: Acute Assessment and Plan: Doing well after laparoscopic cholecystectomy. White blood cell count is still 17,000 but clinically he is doing very well as abdomen is benign. Keep him on Levaquin for another 7 days at home. Will not need to be on Flagyl. MAT drain removed at the bedside today. Can be discharged home today. Discharge instructions written. (2) Choledocholithiasis with obstruction: Qualifiers: Cholecystitis presence: with cholecystitis Cholecystitis acuity: acute Qualified Code(s): K80.43 - Calculus of bile duct with acute cholecystitis with obstruction Code(s): K80.51 - Calculus of bile duct without cholangitis or cholecystitis with obstruction Status: Acute Assessment and Plan: Status post ERCP with extraction of common bile duct stones. Subjective Date/time seen: 10/11/24 12:35 Interval history: Patient is doing well today. He wants to go home. Tolerating solid food without difficulty. No abdominal pain. White blood cell count was [address]843 yesterday and is down to 17,000 today. He continues on Levaquin and Flagyl for antibiotics. Exam GI: Other: Abdomen is soft and nondistended. Port site incisions are healing well. Exam is benign. MAT drain output is minimal serous fluid and nonbilious. Objective Data Vital Signs Vital Signs: Vital Signs - 24 hr 10/10/24 13:55 10/10/24 14:25 10/10/24 20:00 Temperature 35.9 C L 36.8 C Pulse Rate 90 Respiratory Rate 18 Blood Pressure 139/88 Pulse Oximetry 99 Oxygen Delivery Room Air 10/10/24 19:55 10/11/24 04:55 10/11/24 08:00 Temperature 36.6 C 36.7 C Pulse Rate 91 77 Respiratory Rate 16 16 Blood Pressure 143/82 H 133/84 Pulse Oximetry 100 99 Oxygen Delivery Room Air Intake/Output Intake/Output: Intake & Output 10/08/24 10/09/24 10/10/24 10/11/24 23:59 23:59 23:59 23:59 Intake Total 840 1910 1880 750 Output Total 66 55 5 Balance 774 1855 1875 750 Meds/Results Medications: Active Medications Generic Name Dose Route Start Last Admin Trade Name Freq PRN Reason Stop Dose Admin Hydrocodone Bitart/Acetaminophen 1 tab 10/08/24 15:12 10/11/24 09:05 Hydrocodone/Acetaminophen (*Crx) 5-325 Mg Tablet PO 1 tab Q4H PRN Administration Pain Rated 4-6 Atorvastatin Calcium 80 mg 10/06/24 09:00 10/11/24 09:02 Atorvastatin 40 Mg Tablet PO 80 mg DAILY ODILIA Administration Fenofibrate 145 mg 10/06/24 09:00 10/11/24 09:02 Fenofibrate Nanocrystallized 145 Mg Tablet PO 145 mg DAILY ODILIA Administration Levofloxacin 750 mg 10/08/24 14:00 10/10/24 14:17 Levofloxacin 750 Mg Tablet PO 10/14/24 14:01 750 mg Q24H ODILIA Administration Lisinopril 5 mg 10/08/24 11:10 10/11/24 09:02 Lisinopril 5 Mg Tablet PO 5 mg QAM ODILIA Administration Lorazepam 2 mg 10/05/24 19:50 Lorazepam Inj (*Crx) 2 Mg/Ml Vial IV PUSH Q2H PRN CIWA 8-15 Lorazepam 4 mg 10/05/24 19:50 Lorazepam Inj (*Crx) 2 Mg/Ml Vial IV PUSH Q2H PRN CIWA > 15 Metronidazole 500 mg 10/08/24 14:00 10/11/24 06:14 Metronidazole 500 Mg Tablet PO 10/15/24 06:01 500 mg Q8HR ODILIA Administration Morphine Sulfate 4 mg 10/07/24 15:05 10/09/24 06:43 Morphine Sulfate (*Crx) 4 Mg/Ml Inj IV PUSH 4 mg Q2H PRN Administration Pain Rated 7-10 Ondansetron HCl 4 mg 10/05/24 19:36 10/09/24 07:02 Ondansetron Inj 4 Mg/2 Ml Vial IV PUSH 4 mg Q6H PRN Administration Nausea And Vomiting Thiamine HCl 100 mg 10/06/24 09:00 10/11/24 09:02 Thiamine Hcl 200 Mg/2 Ml Vial IV PUSH 100 mg QAM ODILIA Administration Radiology Results: ITS Impressions Abdomen/Pelvis CT 10/05/24 15:11 IMPRESSION: Acute cholecystitis, with prominent pericholecystic fat stranding/inflammation since yesterday Diverticulosis of the left colon; no evidence of diverticulitis Normal appendix Subtle focal diminished attenuation in the lower right hepatic lobe, possibly focal fatty infiltration. MRI has been recommended differentiate benign from malignant process. Abdomen Ultrasound 10/05/24 16:51 IMPRESSION: Gallbladder distention and wall thickening; acute cholecystitis is suspected. No definite gallstones are noted. Consider occult gallstone or acalculous cholecystitis. Focal hyperechoic area right hepatic lobe corresponding to CT finding, possibly focal fatty infiltration or hemangioma MRCP 10/06/24 11:45 IMPRESSION: 1. Choledocholithiasis including a 10 x 6 mm stone in the distal aspect of the borderline dilated common bile duct and with mild intrahepatic biliary ductal dilation. 2. There are additional low signal intensity gallstones in the cystic duct and inflammatory stranding surrounding the gallbladder consistent with acute cholecystitis. 3. 2.1 cm hemangioma in the right hepatic lobe which corresponds to the region of concern on prior CT. Labs Labs: Laboratory Results - last 24 hr 10/11/24 09:40 WBC 17.2 H RBC 4.39 L Hgb 13.4 L Hct 39.2 L MCV 89.3 MCH 30.5 MCHC 34.2 RDW 13.7 Plt Count 441 H MPV 10.6 H Immature Gran % (Auto) 3.3 H Neut % (Auto) 71.7 Lymph % (Auto) 16.5 L [place] % (Auto) 5.8 Eos % (Auto) 2.2 Baso % (Auto) 0.5 Lymph # (Auto) 2.83 [place] # (Auto) 1.0 H Eos # (Auto) 0.4 H Baso # (Auto) 0.1 Abs Immat Gran (auto) 0.57 H Absolute Neuts (auto) 12.3 H Absolute Nucleated RBC 0.000 Nucleated RBC % 0.0 Sodium 135 L Potassium 3.5 Chloride 97 L Carbon Dioxide 29 Anion Gap 9 BUN 14 Creatinine 0.80 Estim Creat Clear Calc 134 Estimated GFR > 60 Glucose 155 H Calcium 9.7 Total Bilirubin 2.1 H AST 67 H ALT 114 H Alkaline Phosphatase 251 H Total Protein 8.0 Albumin 4.2
[2024-10-11] MEDS: levoFLOXacin 750 MG TABLET PO (13:03)
[2024-10-11 14:00] VITALS: BP 120/76; PULSE 82; RESP 18; TEMP 36.2; O2SAT 99
--- NOTE | 2024-10-11 14:19 | PM.DS ---
DS: Admitting Diagnosis Discharge Date 10/11/24 Admitting Diagnosis acute cholecystitis transaminitis hyperglycemia dyslipidemia daily consumption of alcohol DS: Discharge Diagnosis Discharge Diagnosis (1) Acute cholecystitis: Code(s): K81.0 - Acute cholecystitis Status: Acute (2) Transaminitis: Code(s): R74.01 - Elevation of levels of liver transaminase levels Status: Acute (3) Hyperglycemia: Code(s): R73.9 - Hyperglycemia, unspecified Status: Acute (4) Dyslipidemia: Code(s): E78.5 - Hyperlipidemia, unspecified Status: Acute (5) Daily consumption of alcohol: Code(s): Z78.9 - Other specified health status Status: Acute DS: Summary Hospital Course Reason for hospitalization: acute cholecystitis transaminitis hyperglycemia dyslipidemia daily consumption of alcohol Hospital Course: This is a 43-year-old male who present wanted to the hospital on 10/05/2024 with complaints of abdominal pain. Abdomen/ pelvis CT showed 3 mm nonobstructing right renal stone, indeterminate 2 cm ill defined hypodense lesion in the right hepatic lobe which could be either benign or malignant. CT of abdomen pelvis was repeated on 10/05/2024 which showed acute cholecystitis with prominent pericholecystic fat stranding/ inflammation since yesterday diverticulosis of the left colon no evidence of diverticulitis, normal appendix, subtle focal diminished attenuation in the lower right hepatic lobe possibly focal fat infiltration. abdomen ultrasound shown gallbladder distention and wall thickening as seen with acute cholecystitis, node definite gallstones are noted, focal hyperechoic area in the right hepatic lobe possibly focal fatty infiltration or hemangioma. Initial labs showed a white blood cell count of 14.5, RBC 4.57, hemoglobin 13.9, INR 1.3, sodium 134, AST 453, ALT 504, alk-phos 154, total bili 8.4, magnesium 1.4. UA was obtained and showed 2+ urine protein, trace urine ketone, positive nitrate, 3+ urine bili, 1+ leukocytes. Hepatitis panel negative. MRCP showing obstructing common bile duct stone as well as stones in the cystic duct with findings of acute cholecystitis. patient had ERCP with stone extraction on 10/07/2024 without complications with GI services. He then went to the OR on 10/08/2024 for a laparoscopic cholecystectomy with extensive lysis of adhesions. He came back with a MAT drain in place in the right upper quadrant. He advanced his diet as tolerated and his MAT drain was discontinued on 10/09/2024. His white count bumped up on 10/10/2024 to 18.0 requiring him to stay 1 more night. white blood cell count came down to 17.2 today. General surgery okay for him to be discharged today with orders to continue Flagyl and Cipro for another 7 days. Vital signs are stable, he is afebrile, he is currently on room air. He is stable for discharge at this time. He will need to follow up with General surgery in 2 weeks. final diagnosis: acute cholecystitis, alcohol withdrawal, transaminitis, cholelithiasis, gallstones Status at Discharge Cognitive/behavioral status at discharge: alert oriented x4 Functional status at discharge: independent ambulation Overall status at discharge: patient is progressing back to baseline Time Spent with Patient Time attestation: Total time spent providing and/or coordinating discharge services: Time spent: Greater than 30 minutes Exam Narrative: General: In no acute distress, well nourished Cardiac: Normal S1 and S2. RRR, No murmur, gallops or friction rubs, peripheral pulses intact. Respiratory: Lungs clear to auscultation, no adventitious lung sounds, currently on room air Gastrointestinal: soft, non-distended, tenderness noted epigastric radiating to back, normoactive bowel sounds. Nausea and vomiting this a.m. : voiding without difficulty. Skin: lap sites Neuro: Alert and oriented x4 DS: Data Data Completed and Pending Completed studies during hospitalization: abdomen/pelvis CT x2 abdomen ultrasound MRCP ERCP Pending studies at discharge: Pending at discharge 10/08/24 12:46 Surgical [PTH] Routine Labs on day of discharge: Labs from last 24 hours 10/11/24 09:40 WBC 17.2 H RBC 4.39 L Hgb 13.4 L Hct 39.2 L MCV 89.3 MCH 30.5 MCHC 34.2 RDW 13.7 Plt Count 441 H MPV 10.6 H Immature Gran % (Auto) 3.3 H Neut % (Auto) 71.7 Lymph % (Auto) 16.5 L [place] % (Auto) 5.8 Eos % (Auto) 2.2 Baso % (Auto) 0.5 Lymph # (Auto) 2.83 [place] # (Auto) 1.0 H Eos # (Auto) 0.4 H Baso # (Auto) 0.1 Abs Immat Gran (auto) 0.57 H Absolute Neuts (auto) 12.3 H Absolute Nucleated RBC 0.000 Nucleated RBC % 0.0 Sodium 135 L Potassium 3.5 Chloride 97 L Carbon Dioxide 29 Anion Gap 9 BUN 14 Creatinine 0.80 Estim Creat Clear Calc 134 Estimated GFR > 60 Glucose 155 H Calcium 9.7 Total Bilirubin 2.1 H AST 67 H ALT 114 H Alkaline Phosphatase 251 H Total Protein 8.0 Albumin 4.2 Preliminary micro results at discharge 10/07/24 09:13 Blood Culture - Preliminary Blood 10/07/24 09:01 Blood Culture - Preliminary Blood Procedures/Treatments: ERCP laparoscopic cholecystectomy Discharge Plan Discharge Attending physician on discharge: Huy Almanzar Consulting providers: Aquiles,Isaac; Jovan Manrique Discharging Clinician: Zainab Curtis Anticipated Discharge Date/Time: 10/11/24 10:13 Patient Disposition: Home, Self-Care Activity: as tolerated Diet: as tolerated and regular Discharge Instructions: Finish antibiotics as directed even if you are feeling better Follow up with General surgery in 2 weeks Patient Instructions: Antibiotic Form, How to Stop Smoking (DC) Patient Language: Kosovan Stand Alone Forms: General Discharge Information Follow-up/Referrals: Jovan Manrique DO [Physician] - 2 Weeks (Follow up with Dr Mc in the office in 10-14 days. Same office number [phone]) Discharge Medications: New levofloxacin 500 mg tablet 500 mg PO DAILY Qty: 7 0RF lisinopril 5 mg tablet 5 mg PO DAILY Qty: 30 0RF hydrocodone-acetaminophen 5-325 mg tablet 1 tablet PO Q4H Qty: 20 0RF Continued atorvastatin 80 mg tablet 80 mg PO DAILY omeprazole 40 mg capsule,delayed release(DR/EC) 40 mg PO DAILY fenofibrate nanocrystallized 145 mg tablet 145 mg PO DAILY Discontinued hydrocodone-acetaminophen 5-325 mg tablet 1 tablet PO Q8H PRN (Reason: pain) Qty: 10 0RF Date of admission: 10/06/24 13:33 Primary Care Provider: Félix,Isaac Admitting Provider: Shabbir Gilliam Attending physician on admission: Zainab Curtis Condition: Improved Quality VTE Prophylaxis VTE prophylaxis: mechanical ordered Hospitalist MIPS Heart Failure (Exclusion) Patient has history of Heart Transplant or Left Ventricular Assistive Device?: No IF YES, STOP HERE Heart Failure (Qualifier) Patient has current or prior documentation of LVEF less than or equal to 40%, or mod/servere depressed LVSF?: No IF NO, STOP HERE
== END 2024-10-11 15:40 | disposition home or self-care (01) | DRG 418 ==
LOC: ANHED 12:57 → ANH3MEDSUR 16:51
PROVIDERS: Internal Medicine Gastroenterology; Nurse Practitioner Family; Physician Assistant; Surgery; Admitting Provider Internal Medicine; Emergency Provider Emergency Medicine; PCP Registered Nurse; Visit Provider Nurse Practitioner Acute Care
PROC: 0FC98ZZ Extirpation of Matter from Common Bile Duct, Via Natural or Artificial Opening Endoscopic (ICD-10-PCS; CPT 43260; principal; 2024-10-07 11:30)
PROC: 0FT44ZZ Resection of Gallbladder, Percutaneous Endoscopic Approach (ICD-10-PCS; CPT 47562; principal; 2024-10-08 12:30)
DX: K80.63 Calculus of gallbladder and bile duct with acute cholecystitis with obstruction (principal); F10.139 Alcohol abuse with withdrawal, unspecified; R78.81 Bacteremia; B96.1 Klebsiella pneumoniae [K. pneumoniae] as the cause of diseases classified elsewhere; K66.0 Peritoneal adhesions (postprocedural) (postinfection); K57.30 Diverticulosis of large intestine without perforation or abscess without bleeding; E78.5 Hyperlipidemia, unspecified; D18.03 Hemangioma of intra-abdominal structures; Z87.891 Personal history of nicotine dependence
CPT/HCPCS: 36415; 74177; 74183; 74329; 76376; 76705; 80053; 80074; 81001; 83036; 83605; 83690; 83735; 85025; 85027; 85610; 85730; 86850; 86900; 86901; 87040; 87077; 87086; 87186; 88304; 96361; 96365; 96366; 96367; 96375; 96376; 99285; A9270; A9577; G0378; J0330; J0696; J1100; J1171; J1836; J2003; J2250; J2270; J2371; J2405; J2470; J2543; J2704; J3010; J3411; J7030; J7120; Q9966; Q9967